=== PATIENT | female | born 1945 | race Caucasian/White ===

== ENCOUNTER 2016-12-15 19:23 | Observation (INO) | payer MEDICARE ==
[2016-12-15] MEDS ORDERED: ASPIRIN TABLET 325 MG TAB PO ONE ×2 (19:49→20:26)
--- NOTE | 2016-12-15 20:45 | RAD ---
EXAM DESCRIPTION: Chest,1 View CLINICAL HISTORY: 71 years, Female, atypical chest pain COMPARISON: Chest x-ray dated 12/02/2014. FINDINGS: A single frontal chest radiograph was for four. There has been a previous CABG with two ostial rings and median sternotomy wire closure, stable. The lungs are hyperinflated with surgical clips in the RIGHT upper lobe and splaying of the regional pulmonary structures in both upper lobes The lungs are well expanded and clear. The costophrenic sulci are sharp. The aortic arch is calcified. The cardiac silhouette, hilar regions, trachea, soft tissues and bony structures are unremarkable aside from osteopenia. In the interval since the prior study, there has been no significant change. IMPRESSION: No acute cardiopulmonary disease. Emphysema. Electronically signed by: Rukhsana Riddle MD 12/15/2016 8:44 PM CDT
--- NOTE | 2016-12-15 21:49 | ED.PDOC ---
History of Present Illness - General Chief Complaint: Chest Pain/ND Stated Complaint: chest pain Time Seen by Provider: 12/15/16 20:26 Source: patient, RN notes reviewed, Vital Signs reviewed Exam Limitations: no limitations - History of Present Illness Initial Comments: Patient is a 71 y/o female with a significant cardiac history who has had chest pain (lower sub-sternal) for the past 3 days off and on. It really started bothering her worse today at around 1500. It is a sharp pain, about a 6-8/10 before she came in. In the ED, she does not have any pain. She has shortness of breath because she has COPD, but it has not been any worse. She denies any nausea or diaphoresis. She did have some dizziness. Patient's room worker is Flavio Trotter M.D. Timing/Duration: getting worse, other - 3 days Severity: moderate, severe Location: substernal Activities at Onset: none Prior Chest Pain/Cardiac Workup: cardiac cath, heart attack Improving Factors: nothing Worsening Factors: nothing Nitro Today/Relief: no nitro taken today Aspirin Treatment Today: provided by ED Associated Symptoms: headaches Allergies/Adverse Reactions: Allergies Sulfa Antibiotics Allergy (Verified 12/15/16 19:47) Home Medications: Ambulatory Orders Acid Reflux Med 12/15/16 Aspirin 12/15/16 Benadryl 12/15/16 Blood Pressure Med 12/15/16 Unisom 12/15/16 Review of Systems - Review of Systems Constitutional: States: no symptoms reported. Denies: chills, fever EENTM: States: no symptoms reported Respiratory: States: cough, short of breath Cardiology: States: chest pain Gastrointestinal/Abdominal: States: no symptoms reported Genitourinary: States: no symptoms reported Musculoskeletal: States: no symptoms reported Skin: States: no symptoms reported Neurological: States: no symptoms reported Endocrine: States: no symptoms reported Hematologic/Lymphatic: States: no symptoms reported All other Systems: Reviewed and Negative Past Medical History (General) - Patient Medical History Hx of COPD: Yes Hx Cardiac Disorders: Yes Hx Hypertension: Yes Surgical History: appendectomy, coronary bypass surgery, Hysterectomy - Vaccination History Hx Influenza Vaccination: Yes Hx Pneumococcal Vaccination: Yes - Social History Hx Alcohol Use: Yes - Female History Patient is a Female of Child Bearing Age (10 -59 yrs old): No Family Medical History - Family History Father Hx Cardiac Disease: Yes Physical Exam - Physical Exam General Appearance: Alert, Comfortable, No apparent distress Eyes, Ears, Nose, Throat Exam: normal ENT inspection Neck: supple Respiratory: lungs clear, normal breath sounds, no respiratory distress, no accessory muscle use Cardiovascular/Chest: regular rate, rhythm, no edema, no gallop, no JVD, no murmur Peripheral Pulses: radial,right: 2+, radial,left: 2+, dorsalis pedis,right: 1+, dorsalis pedis,left: 1+ Gastrointestinal/Abdominal: normal bowel sounds, non tender, soft, no organomegaly, no pulsatile mass Extremity: non-tender, normal inspection, no pedal edema, no calf tenderness Neurologic: alert, normal mood/affect, oriented x 3 Skin Exam: normal color, warm/dry Progress - Progress Progress: 12/15/16 21:53 Patient's initial set of cardiac enzymes is normal. She continues to be pain- free. She would like to go home, however I discussed the need to do three sets of cardiac enzymes 3 hours apart and that one normal lab does not mean she does not have any cardiac injury. I told her she could leave AMA, however the risks included worsening of any possible cardiac injury, including disability and . Patient decided to stay for obs so that we can completely rule out an ND. - Results/Orders Results/Orders: 12/15/16 12/15/16 19:38 20:37 Temperature 96.8 F L Pulse Rate [ 61 54 L Apical] Respiratory 16 18 Rate Blood Pressure 156/72 145/72 [Right Arm] O2 Sat by Pulse 97 Oximetry 12/15/16 20:00 EKG STAT 12/15/16 20:26 Chest,1 View [RAD] Stat Laboratory Results WBC 7.0 K/mm3 (4.8-10.8) 12/15/16 20:09 RBC 4.19 M/mm3 (4.20-5.40) L 12/15/16 20:09 Hgb 11.6 gm/dL (12.0-16.0) L 12/15/16 20:09 Hct 36.3 % (36.0-47.0) 12/15/16 20:09 MCV 86.6 fl (81.0-99.0) 12/15/16 20:09 MCH 27.6 pg (27.0-31.0) 12/15/16 20:09 MCHC 32.0 g/dL (33.0-37.0) L 12/15/16 20:09 RDW 15.3 % (11.5-14.5) H 12/15/16 20:09 Plt Count 242 K/mm3 (130-400) 12/15/16 20:09 MPV 8.1 fl (7.40-10.4) 12/15/16 20:09 Absolute Neuts (auto) 4.00 K/uL (1.8-6.8) 12/15/16 20:09 Absolute Lymphs (auto) 2.10 K/uL (1.0-3.4) 12/15/16 20:09 Absolute Monos (auto) 0.60 K/uL (0.2-0.8) 12/15/16 20: Absolute Eos (auto) 0.20 K/uL (0.0-0.4) 12/15/16 20:09 Absolute Basos (auto) 0.10 K/uL (0.0-0.1) 12/15/16 20:09 Neutrophils % 58.0 % (42.0-78.0) 12/15/16 20: Lymphocytes % 30.3 % (20.0-50.0) 12/15/16 20: Monocytes % 8.1 % (2.0-9.0) 12/15/16 20: Eosinophils % 2.5 % (1.0-5.0) 12/15/16 20: Basophils % 1.1 % (0.0-2.0) 12/15/16 20:09 PT 11.7 SECONDS (9.4-12.5) 12/15/16 20:09 INR 1.040 12/15/16 20:09 PTT (SP) 32.6 SECONDS (25.1-36.5) 12/15/16 20:09 D-Dimer, Quantitative < 230 ng/mL (0-230) 12/15/16 20:09 Sodium 138 mmol/L (135-145) 12/15/16 20:09 Potassium 4.2 mmol/L (3.6-5.0) 12/15/16 20:09 Chloride 104 mmol/L (101-111) 12/15/16 20:09 Carbon Dioxide 28 mmol/L (21-31) 12/15/16 20:09 Anion Gap 10.2 (12-18) L 12/15/16 20:09 BUN 11 mg/dL (7-18) 12/15/16 20:09 Creatinine 1.15 mg/dL (0.6-1.3) 12/15/16 20:09 BUN/Creatinine Ratio 9.6 (10-20) L 12/15/16 20:09 Random Glucose 92 mg/dL (70-105) 12/15/16 20:09 Serum Osmolality 274.7 mOsm/L (275-295) L 12/15/16 20:09 Calcium 8.7 mg/dL (8.4-10.2) 12/15/16 20:09 Magnesium 1.9 mg/dL (1.8-2.5) 12/15/16 20:09 Total Bilirubin 0.5 mg/dL (0.2-1.0) 12/15/16 20:09 Direct Bilirubin 0.1 mg/dL (0-0.2) 12/15/16 20:09 Indirect Bilirubin 0.4 mg/dL (0.2-0.8) 12/15/16 20:09 AST 17 IU/L (10-42) 12/15/16 20:09 ALT 12 IU/L (10-60) 12/15/16 20:09 Alkaline Phosphatase 105 IU/L (42-121) 12/15/16 20:09 Creatine Kinase 71 IU/L (26-140) 12/15/16 20:09 CK-MB (CK-2) 1.1 ng/mL (0.0-4.4) 12/15/16 20:09 CK-MB (CK-2) % Not Reportable 12/15/16 20:09 Troponin I < 0.02 ng/mL (0.01-0.05) 12/15/16 20:09 B-Natriuretic Peptide 126.0 pg/ml (0-100) H 12/15/16 20:09 Serum Total Protein 7.2 gm/dL (6.4-8.2) 12/15/16 20:09 Albumin 4.0 g/dl (3.2-5.5) 12/15/16 20:09 - EKG/XRAY/CT EKG: Sinus - 62 bpm, nonspecific ST T wave Chg Comments: NML axis, NML intervals, No comp. available, Abn EKG XRAY: chest - No acute process Departure - Departure Clinical Impression: Hypertension, benign Chest pain Qualifiers: Chest pain type: unspecified Qualified Code(s): R07.9 - Chest pain, unspecified Coronary artery disease Qualifiers: Coronary Disease-Associated Artery/Lesion type: unspecified vessel or lesion type [place] vs. transplanted heart: teller heart Associated angina: angina presence unspecified Qualified Code(s): I25.10 - Atherosclerotic heart disease of teller coronary artery without angina pectoris Time of Disposition: 21:59 Home Medications: Ambulatory Orders Acid Reflux Med 12/15/16 Aspirin 12/15/16 Benadryl 12/15/16 Blood Pressure Med 12/15/16 Unisom 12/15/16 Decision To Admit - Decistion To Admit Decision to Admit Reason: Medical Nature Decision to Admit Date: 12/15/16 Decision to Admit Time: 21:45
--- NOTE | 2016-12-15 22:32 | RAD ---
EXAM DESCRIPTION: Chest,1 View CLINICAL HISTORY: chest pain COMPARISON: None FINDINGS: Frontal view of the chest and supine and upright images of the abdomen were submitted. Cardiac silhouette is within normal limits. There is no focal parenchymal or pleural disease. There is no free air in the abdomen. There is no evidence of bowel obstruction. IMPRESSION: No acute abnormalities. Electronically signed by: Ulysses Aguero MD 12/15/2016 10:32 PM CDT
[2016-12-15] MEDS ORDERED: IV SET AND CAP CHANGE INJ INJ SCH (23:45)
[2016-12-15] MEDS ORDERED: MORPHINE SULFATE INJ 10 MG/ML VIAL IV PRN (23:49)
[2016-12-15] MEDS ORDERED: ACETAMINOPHEN 325 MG TAB PO PRN (23:49)
[2016-12-15] MEDS ORDERED: NITROGLYCERIN 0.4 MG 25 EA TAB SL PRN (23:49)
[2016-12-15] MEDS ORDERED: SODIUM CHLORIDE 0.9% (FLUSH) 10 ML SYG IV PRN (23:49)
[2016-12-16] MEDS ORDERED: NITROGLYCERIN 0.2 MG/HR PATCH TD SCH ×2 (01:00→21:00)
--- NOTE | 2016-12-16 01:01 | PCM.CORE ---
Physician DVT/VTE - Nurse DVT Assessment & Total Each Risk Factor Represents 3 Points: Medical PT with Hx of [place], CHF, Severe infection/sepsis Each Risk Factor Represents 2 Points: Age 60-74 Each Risk Factor Represents 1 Point: Hx of smoking past year Each Risk Factor is 1 Point: Serious Lung disease (pnemonia <1month, COPD, emphysema,etc) DVT Assessment Score: 7 - 5 or more Very High Risk Treatments: Early Ambulation *, Sequential Compression Device Pharmacological: Enoxaparin 40mg SQ Daily
[2016-12-16] MEDS ORDERED: ENOXAPARIN SODIUM 40 MG/0.4 ML SYG SUBCU SCH ×2 (01:30→21:00)
[2016-12-16] MEDS ORDERED: SODIUM CHLORIDE 0.9% (FLUSH) 10 ML SYG IV SCH (09:00)
[2016-12-16 10:48] VITALS: BP 131/75; TEMP 97.4; O2SAT 97
[2016-12-16] MEDS ORDERED: TIOTROPIUM IN SCH (12:00)
[2016-12-16] MEDS ORDERED: NON-FORMULARY MEDICATION 1 EA MIS (Budesonide-Formoterol Fumarate [Symbicort 160-4.5 Mcg/A IN SCH (12:00)
[2016-12-16] MEDS ORDERED: ATENOLOL 25 MG TAB PO SCH (12:00)
[2016-12-16] MEDS ORDERED: ASPIRIN EC 81 MG TAB PO SCH (12:00)
[2016-12-16] MEDS ORDERED: PRASUGREL 10 MG PO SCH (12:00)
[2016-12-16] MEDS ORDERED: REMOVE OLD PATCH TOP ONE (13:45)
--- NOTE | 2016-12-16 18:09 | SSS ---
SUPERVISING PHYSICIAN: Nate Denny M.D. CHIEF COMPLAINT: Chest pain. HISTORY OF PRESENT ILLNESS: Ms. Nunez is a 71 year-old female patient that presented to the Emergency Department on 12/15/16 with a significant cardiac history who had started having chest pains that she describes as low substernal for the past 3 to 4 days on and off. The pain had started really bothering her the day before around 3:00 and she noted it to be sharp, and noted it to be about 6 to 8/10 on a pain scale. In the Emergency Department, she presented without any pain. She does have some shortness of breath secondary to chronic obstructive pulmonary disease but was not having any exacerbation. She denied any nausea, vomiting or diaphoresis. The patient does see Dr. Flavio Trotter for cardiology. Initial laboratory studies showed troponin to be less than 0.02, 12-lead EKG showed normal sinus rhythm without any significant ST changes. Initially the patient requested to be discharged, however after a lengthy discussion with the E. R. physician, the patient decided that it would be in her best interest for her to stay overnight at least to have a repeat of her cardiac enzymes to ensure that there was no acute cardiac injury occurring. Therefore the patient was placed in Observation. She was in stable condition at time of admission. PAST MEDICAL HISTORY: 1. Gastroesophageal reflux disease. 2. Previous myocardial infarction in 1997 with 2 stents placed in [place]. 3. Cardiac catheterization in February 2016 with stents placed times [address] Trotter. 4. Chronic obstructive pulmonary disease. PAST SURGICAL HISTORY: 1. Cholecystectomy. 2. Hysterectomy. 3. Total appendectomy. 4. Neck surgery. 5. Coronary artery bypass graft times 3 vessels in February 2011. HOME MEDICATIONS: 1. Albuterol inhaler 1 puff q.i.d. as needed. 2. Lipitor 40 mg daily at bedtime. 3. Tenormin 25 mg daily. 4. Aspirin enteric coated 81 mg daily. 5. Benadryl 50 mg p.r.n. 6. Spiriva Handihaler 2 puffs daily. 7. Effient 10 mg daily. 8. Symbicort 160-4.5 mcg per actuation 1 puff twice daily. 9. Nitroglycerin tablets subcue 0.4 mg sublingual every 5 minutes as needed. FAMILY HISTORY: Father had a history of cardiac disease. Otherwise unremarkable. 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 She is . Lives in [place]. Has a history of smoking tobacco 2 to 3 packs per day since age 14, quit 17 months previously in 2015. Alcohol, she admits to drinking maybe 1 or 2 drinks per year. She denies any illicit drug use. REVIEW OF SYSTEMS: CONSTITUTIONAL: Denies any chills, fever, general malaise. HEENT: Denies any headaches, vision changes, dizziness. RESPIRATORY: Notes that she has a nonproductive cough that is fairly chronic and has some shortness of breath on a general basis, but nothing worsening. CARDIOVASCULAR: As noted in the History of Present Illness, chest pains for the last 3 to 4 days. GASTROINTESTINAL: Denies any abdominal pains, nausea or vomiting, or diarrhea. GENITOURINARY: Denies any dysuria, hematuria or other urinary symptoms. NEUROLOGIC: Denies any dizziness, syncopal episodes or other neurological deficits. PHYSICAL EXAMINATION: VITAL SIGNS: On admission to the Emergency Department showed temperature 96.8, pulse 61, blood pressure 166/72, respirations 16, O2 sat 97%. At time of discharge, blood pressure was 131/75, heart rate 67, respirations 20. She was satting 97% on room air and afebrile at 97.4. GENERAL: The patient appears to be well hydrated, well nourished in no acute distress. HEENT: Tympanic membranes are clear bilaterally. Oropharynx is pink and moist without any lesions. NECK: Supple, non-tender, full range of motion. No jugular venous distention. CHEST: Lungs are clear to auscultation bilaterally without any rhonchi, wheezing or rales. CARDIOVASCULAR: Regular rate and rhythm without any appreciable murmurs, gallops, or rubs. ABDOMEN: Soft, non-tender. Positive bowel sounds. EXTREMITIES: No clubbing, cyanosis or edema. NEUROLOGIC: She is alert and oriented times three. LABORATORY: Initial white count on admission was 7.0, at discharge was 6.1, hemoglobin was stable at 11.3, hematocrit 34.7, platelet count 213,000. Differential was within normal limits. Coagulation studies showed normal PT and PTT, and D-dimer that was less than 230. Chemistries showed normal electrolytes on admission, at discharge potassium was 4.0, BUN 10, creatinine 1.12, calcium 8.7. Liver functions all showed to be within normal limits. She had 3 sets of cardiac enzymes all within normal limits with final cardiac enzymes showing CPK of 64 with troponin times 3 of less than 0.02. BNP was slightly elevated at 126. Lipid panel showed triglycerides of 169 with cholesterol 161, cholesterol LDL was 86 and HDL cholesterol was 42. RADIOLOGY: Chest x-ray per radiology interpretation showed no acute abnormalities. HOSPITAL COURSE: The patient was seen in the E. R. as noted above and had a cardiac workup in the Emergency Room to include cardiac enzymes that showed to be normal with an EKG that showed normal sinus rhythm without any ST changes. She was pain free initially upon admission to the Emergency Department and given her past history, it was discussed with the patient that she should be at least observed overnight to further rule out any acute cardiac injury with repeat cardiac enzymes and close monitoring on telemetry. The patient was placed into Observation on the Medical/Surgical floor in stable condition. She had no recurrence of her chest pains, had no other complaints. EKG remained unchanged with normal sinus rhythm at discharge with no ST or T wave changes. She showed no arrhythmias on telemetry through the night. Had no nausea or vomiting, was afebrile. Cardiac enzymes times 3 were all within normal limits. The patient was also started on a Nitro patch topically 0.2 mcg per hour which was continued through discharge. On the morning of discharge, she was stable and felt well enough to be discharged to continue with followup with her fixed route bus operator and primary care physician in the outpatient setting. ASSESSMENT: 1. Chest pain, unknown etiology with cardiac enzymes being within normal limits through observation period as well as no significant changes on EKGs with the patient having a significant history of cardiac disease with a previous myocardial infarction in 1997 and a coronary artery bypass graft in [address] Trotter with last echocardiogram documented per review of medical records on 2013 with an estimated ejection fraction of 55%. 2. History of gastroesophageal reflux disease. 3. Significant history of cardiovascular disease with previous myocardial infarction in 1997 with multiple stent placements along with coronary artery bypass graft three vessel in February [address] Trotter. 4. History of chronic obstructive pulmonary disease without any exacerbation in a former smoker. PLAN: The patient was discharged in stable condition to have close clinical followup with Dr. Trotter, her fixed route bus operator, and her primary care physician, Dr. Rose. She was instructed to call on Sunday after discharge to establish an appointment for followup with Dr. Trotter as well as Dr. Rose. She was given a new prescription to include Nitro patch 0.2 mcg per hour to wear during the day and to take off at night until she can be seen in followup. She was to do no strenuous exercising but increase activity as tolerated until she can be seen in followup. Diet was to include a low fat, low cholesterol diet. She was instructed to resume her home medication as previous to admission. She was discharged in stable condition with new prescriptions to include: 1. Nitroglycerin patch 0.2 mcg per hour 1 every AM for 12 hours to be removed at night, #7. 2. Sublingual tablets 0.4 mg 1 every 5 minutes as needed for chest pains, 1 bottle. Diet at discharge was low fat, low cholesterol. Activity was to increase as tolerated but no strenuous exercise. Condition at discharge was stable. #[id number] [facility]
[2016-12-16] MEDS ORDERED: BUDESONIDE/FORMOTEROL 160/4.5 60 PUFF/6 GM INH INH SCH (20:00)
[2016-12-16] MEDS ORDERED: ATORVASTATIN 20 MG TAB PO SCH (21:00)
[2016-12-17] MEDS ORDERED: TIOTROPIUM INHALER INH SCH (08:00)
[2016-12-17] MEDS ORDERED: REMOVE OLD PATCH TOP SCH (09:00)
[2016-12-17] MEDS ORDERED: PRASUGREL 10 MG TAB PO SCH (09:00)
== END 2016-12-16 13:30 | disposition home or self-care (01) ==
LOC: ER 19:23 → MS 23:08
PROVIDERS: ADMIT Nurse Practitioner Family; ATTEND Nurse Practitioner Family
DX: R07.2 Precordial pain (principal); I25.2 Old myocardial infarction; I25.10 Atherosclerotic heart disease of native coronary artery without angina pectoris; K21.9 Gastro-esophageal reflux disease without esophagitis; J44.9 Chronic obstructive pulmonary disease, unspecified; R06.02 Shortness of breath; Z95.1 Presence of aortocoronary bypass graft; Z95.5 Presence of coronary angioplasty implant and graft; Z79.82 Long term (current) use of aspirin; Z79.899 Other long term (current) drug therapy; Z87.891 Personal history of nicotine dependence; Z79.51 Long term (current) use of inhaled steroids; Z90.49 Acquired absence of other specified parts of digestive tract; Z90.710 Acquired absence of both cervix and uterus; Z82.49 Family history of ischemic heart disease and other diseases of the circulatory system
CPT/HCPCS: 36415 ×4; 71010 ×2; 80048; 80053; 80061; 80076; 82550 ×3; 82553 ×3; 83880; 84484 ×3; 85025 ×2; 85379; 85610; 85730; 93005 ×2; 94760 ×2; 96372; 99284; G0378; J1650

== ENCOUNTER → 2016-12-29 | Outpatient (CLI) | payer MEDICARE | END | disposition home or self-care (01) | LOC: GMAM 12:42 | PROVIDERS: ATTEND Family Medicine | DX: E55.9 Vitamin D deficiency, unspecified (principal) ==

== ENCOUNTER → 2017-12-13 | Outpatient (CLI) | payer OTHER | LOC: GMAM 17:24 | PROVIDERS: ATTEND Family Medicine | DX: J30.1 Allergic rhinitis due to pollen (principal); R25.1 Tremor, unspecified; R73.9 Hyperglycemia, unspecified; R53.83 Other fatigue; E53.8 Deficiency of other specified B group vitamins; I10 Essential (primary) hypertension ==

== ENCOUNTER → 2018-05-28 | Outpatient (CLI) | payer OTHER ==
--- NOTE | 2018-05-28 11:41 | RAD ---
EXAM DESCRIPTION: Chest,2 Views CLINICAL HISTORY: COPD COMPARISON: Previous study December 15, 2016 TECHNIQUE: PA/lateral FINDINGS: Sternotomy wires are present. Heart size is normal with normal pulmonary vascularity. No pleural effusion or pneumothorax. Scattered granulomas are seen. Linear scarring in the right apex. Prominent lung markings are similar to previous study. Lungs are hyperexpanded with no consolidating infiltrate. Lateral view shows intact sternum and T-spine. IMPRESSION: No acute-appearing consolidation. Electronically signed by: Rg Ryder MD 05/28/2018 11:39 AM CDT
== END ==
LOC: RAD 11:02
PROVIDERS: ATTEND Family Medicine
DX: J44.9 Chronic obstructive pulmonary disease, unspecified (principal)

== ENCOUNTER → 2018-09-20 | Outpatient (CLI) | payer OTHER | LOC: GMAM 10:41 | PROVIDERS: ATTEND Family Medicine | DX: E55.9 Vitamin D deficiency, unspecified (principal) ==

== ENCOUNTER → 2018-10-08 | Outpatient (CLI) | payer OTHER ==
--- NOTE | 2018-10-08 12:32 | CT ---
EXAM DESCRIPTION: Lung Screen Low Dose CLINICAL HISTORY: 73 years Female, HISTORY OF TOBACCO USE COMPARISON: Chest radiograph 05/28/2018. TECHNIQUE: CT images through the chest without IV contrast. Multiplanar reformations were provided. This exam was performed according to our departmental dose-optimization program, which includes automated exposure control, adjustment of the mA and/or kV according to patient size and/or use of iterative reconstruction technique. CT CHEST FINDINGS: Heart and mediastinum: Heart is normal size. No pericardial effusion. There is severe aortic and coronary atherosclerosis. Small hiatal hernia. No mediastinal lymphadenopathy. Evaluation for hilar lymphadenopathy limited without intravenous contrast. Thyroid Gland: Normal. Lungs: Bilateral emphysema. Subcentimeter calcified granuloma in the lateral left upper lobe on image 47. Airways: No filling defects or bronchiectasis. Pleura: No effusion or pneumothorax. Subphrenic Structures: Gallbladder surgically absent. Common bile duct measures up to 9 mm which is likely secondary to reservoir effect following cholecystectomy. A right renal cyst measures up to 3.9 cm. Musculoskeletal and Soft Tissues: Thoracic spondylosis without acute compression deformity. Media sternotomy wires are intact. IMPRESSION: 1. No acute abnormality of the chest. 2. Emphysema without suspicious pulmonary nodule. Category 1 - No nodule or definitely benign nodules (probability of malignancy less than 1%). Follow-up: Continue annual screening with Low Dose Chest CT in 12 months. 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
== END ==
LOC: CT 11:00
PROVIDERS: ATTEND Family Medicine
DX: Z87.891 Personal history of nicotine dependence (principal); J43.9 Emphysema, unspecified

== ENCOUNTER → 2018-11-20 | Outpatient (CLI) | payer OTHER ==
--- NOTE | 2018-11-20 18:42 | MRI ---
MRI left shoulder without contrast INDICATION: Shoulder pain TECHNIQUE: Noncontrast MR imaging left shoulder standard protocol FINDINGS: Minimal AC joint osteoarthrosis There is edema in the axillary recess along the capsule indicating mild adhesive capsulitis. Minimal subacromial and subdeltoid bursal edema. No high-grade partial or full-thickness rotator cuff tear or retraction. Minimal grade 1 marbling throughout the rotator cuff muscle bellies. Mild type II acromial morphology. No advanced muscle atrophy or denervation edema There is tendinopathy distal supraspinatus with interstitial fissuring anteriorly coronal series 501 image 7 indicating low-grade chronic partial tear. IMPRESSION: Tendinopathy and low-grade chronic partial tear supraspinatus tendon Adhesive capsulitis Mild labral degeneration Mild AC joint osteoarthrosis Electronically signed by: Ambrosio Lawson MD 11/20/2018 6:39 PM CDT
--- NOTE | 2018-11-21 08:12 | MRI ---
EXAM DESCRIPTION: Cervical Spine CLINICAL HISTORY: 73 years Female, CERVICAL RADICULOPATHY COMPARISON: None. TECHNIQUE: Multisequence, multiplanar images of the cervical spine were obtained without intravenous contrast. FINDINGS: Vertebrae: No acute fracture. No acute compression deformity. Acute moderate type I endplate change at C6-C7. Mild reversal of normal cervical lordosis centered at C6. AP lungs maintained. Spinal cord: The cervical cord is normal in signal and contour. Cerebellar tonsils are normal in position. Discs, facets, spinal canal, and neural foramina: Disc desiccation throughout the cervical spine. Severe C6-C7 disc space narrowing. C2-C3: No disc osteophyte complex. Mild bilateral uncovertebral spurring. Mild spinal canal stenosis. Mild bilateral neural foraminal stenosis. C3-C4: Small disc osteophyte complex with moderate right greater than left uncovertebral and moderate bilateral facet arthropathy. Moderate spinal canal stenosis with AP narrowing to 6 mm. Severe right greater than left neural foraminal stenosis. C4-C5: No significant disc osteophyte complex. Moderate bilateral uncovertebral and facet arthropathy. Moderate spinal canal stenosis with flattening of the ventral spinal cord. Moderate right and severe left neural foraminal stenosis. C5-C6: Small disc osteophyte complex with severe bilateral uncovertebral spurring. Moderate bilateral facet arthropathy. Moderate spinal canal stenosis with flattening the ventral spinal cord. Moderate right and severe left neural foraminal stenosis. C6-C7: Small disc osteophyte complex with severe uncovertebral spurring. Mild/moderate facet arthropathy. Mild spinal canal stenosis. Moderate bilateral neural foraminal stenosis. C7-T1: Small disc osteophyte complex with severe right and moderate left uncovertebral spurring. Mild facet arthropathy. Mild spinal canal stenosis. Neuroforamina are patent. Other findings: Paravertebral soft tissues unremarkable. IMPRESSION: 1. No acute fracture acute compression deformity. 2. Mild cervical kyphosis centered at C6-C7 with associated acute Modic type I degenerative endplate change at C6-C7. 3. Cervical spondylosis with up to moderate spinal canal stenosis and flattening of the ventral spinal cord as above. 4. Multilevel neural foraminal compromise, greatest and severe at bilateral C4, left C5, left C6. Electronically signed by: Yang Golden MD 11/21/2018 8:09 AM CDT
== END ==
LOC: MRI 10:54
PROVIDERS: ATTEND Family Medicine
DX: M47.22 Other spondylosis with radiculopathy, cervical region (principal); S46.012A Strain of muscle(s) and tendon(s) of the rotator cuff of left shoulder, initial encounter; M75.02 Adhesive capsulitis of left shoulder; M19.012 Primary osteoarthritis, left shoulder

== ENCOUNTER 2019-03-06 19:00 | Emergency (ER) | payer OTHER ==
[2019-03-06] MEDS ORDERED: ASPIRIN (CHEWABLE) 81 MG TAB ONE (19:14)
[2019-03-06] MEDS ORDERED: NITROGLYCERIN 0.4 MG 25 EA TAB SL ONE ×2 (19:14→19:19)
[2019-03-06] MEDS ORDERED: ALUM & MAG HYDROX-SIMETHICONE 30 ML, LIDOCAINE VISCOUS 2% 15 ML PO ONE ×2 (19:19)
[2019-03-06] MEDS ORDERED: ASPIRIN (CHEWABLE) 81 MG TAB PO ONE (19:19)
[2019-03-06] MEDS ORDERED: SODIUM CHLORIDE 0.9% (FLUSH) 10 ML SYG IV PRN (19:19)
[2019-03-06] MEDS ORDERED: LIDOCAINE HCL 2% (MOUTH-THROAT) 15 ML UD ONE (19:20)
[2019-03-06] MEDS ORDERED: ALUM & MAG HYDROX-SIMETHICONE 30 ML UD ONE (19:20)
--- NOTE | 2019-03-06 19:42 | RAD ---
EXAM: XR Chest, 1 View CLINICAL HISTORY: 73 years old and is Female; chest pain, dyspnea TECHNIQUE: Frontal view of the chest. COMPARISON: 05/28/2018 FINDINGS: Limitations: None. Lungs: Stable bullous emphysematous change. No consolidation. Pleural space: Unremarkable. No pneumothorax. Heart: Coronary bypass changes present. Mediastinum: Unremarkable. Bones/joints: Unremarkable. IMPRESSION: Chronic changes as above. No acute disease. Electronically signed by: Emily Benitez MD 03/06/2019 7:40 PM CDT
[2019-03-06] MEDS ORDERED: NITROGLYCERIN/D5W IV 250 ML IVS ONE (20:30)
--- NOTE | 2019-03-06 20:35 | ED.PDOC ---
History of Present Illness - General Chief Complaint: Chest Pain/NV Stated Complaint: CP x's 1 week Time Seen by Provider: 03/06/19 19:10 Source: patient Exam Limitations: no limitations - History of Present Illness Initial Comments: Sara Nunez73 y/o female stated that she had on and off stabbing subcostal pain for the last one week and and takes her blood pressure and noted it to be high so takes an extra dose of her high blood pressure medication w/c relieved her chest pain symptoms.But today had 2 episodes with radiation to her right jaw so came to ER.Had history of CABG and cardiac stent -2010;scheduled for ETT by Dr. Trotter her office support this coming 17 March 2019. Timing/Duration: 1 week Severity: moderate Location: substernal Activities at Onset: none Prior Chest Pain/Cardiac Workup: cardiac cath, heart attack, other - stent/CABG Improving Factors: nothing Worsening Factors: nothing Nitro Today/Relief: 0.4 mg x 1 Aspirin Treatment Today: 81 mg x 4 Associated Symptoms: other - see hpi Allergies/Adverse Reactions: Allergies Sulfa Antibiotics Allergy (Verified 03/06/19 19:35) Home Medications: Ambulatory Orders Albuterol Inhaler [Ventolin Hfa Inhaler] 1 puff INH QID PRN 12/16/16 Aspirin [Aspirin EC] 81 mg PO DAILY 12/16/16 Atenolol [Tenormin] 25 mg PO DAILY 12/16/16 Atorvastatin Calcium [Lipitor] 40 mg PO BEDTIME 12/16/16 Budesonide-Formoterol Fumarate [Symbicort 160-4.5 Mcg/Act] 1 puff IN BID 12/16/16 Nitroglycerin 0.4 mg Tab [Nitrostat] 1 ea SL Q5MIN PRN #1 bottle 12/16/16 Nitroglycerin Patch 0.2 mg/Hr [Nitro-Dur PATCH 0.2 mg/hour] 1 ea TD QAM #7 12/16/16 Prasugrel [Effient] 10 mg PO DAILY 12/16/16 Tiotropium [place] Monohydrate [Spiriva Handihaler] 2 puff IN DAILY 12/16/16 diphenhydrAMINE HCL [Benadryl] 50 mg PO PRN PRN MDD 50 12/16/16 Review of Systems - Review of Systems Constitutional: States: no symptoms reported EENTM: States: no symptoms reported Respiratory: States: no symptoms reported Cardiology: States: see HPI Gastrointestinal/Abdominal: States: no symptoms reported Genitourinary: States: no symptoms reported Musculoskeletal: States: no symptoms reported All other Systems: Reviewed and Negative, No Change from Baseline Past Medical History (General) - Patient Medical History Hx Seizures: No Hx Stroke: No Hx Dementia: No Hx Asthma: No Hx of COPD: Yes Hx Cardiac Disorders: Yes - NV x's 2, stents x's 3, CABG Hx Congestive Heart Failure: Yes Hx Pacemaker: No Hx Hypertension: Yes Hx Diabetes: No Hx Gastroesophageal Reflux: Yes Hx Renal Disease: No Hx MRSA: No Surgical History: appendectomy, cholecystectomy, coronary bypass surgery, other - cardiac stent;c-spine - Vaccination History Hx Tetanus, Diphtheria Vaccination: Yes Hx Influenza Vaccination: Yes Hx Pneumococcal Vaccination: Yes - Social History Hx Tobacco Use: No Hx Alcohol Use: No Hx Substance Use: No Hx Physical Abuse: No Hx Emotional Abuse: No Family Medical History - Family History Father Living Status: Hx Family Asthma: No Hx Family Congestive Heart Failure: No Hx Family Hypertension: Yes Hx Family Stroke: No Hx Cardiac Disease: Yes - mom/dad Hx Family Diabetes: No Hx Family Cancer: Yes - mom-Lungs Physical Exam - Physical Exam General Appearance: Alert, Comfortable, No apparent distress Eyes, Ears, Nose, Throat Exam: normal ENT inspection, pharynx normal Neck: full range of motion, supple, normal inspection Respiratory: chest non-tender, lungs clear, normal breath sounds, no respiratory distress Cardiovascular/Chest: normal peripheral pulses, regular rate, rhythm, no murmur Peripheral Pulses: radial,right: 2+, radial,left: 2+ Gastrointestinal/Abdominal: non tender, soft, no organomegaly Neurologic: alert, oriented x 3 Skin Exam: normal color, warm/dry Progress - Progress Progress: 03/06/19 20:38 Vital Signs - 8 hr 03/06/19 03/06/19 03/06/19 19:15 19:53 20:00 Temperature 99.0 F Pulse Rate [ 85 78 monitor] Respiratory 22 22 Rate Blood Pressure 158/112 121/70 [Right Arm] O2 Sat by Pulse 96 95 96 Oximetry - Results/Orders Results/Orders: 03/06/19 19:19 IV Care:Saline Lock per Protoc QSHIFT Telemetry .ONCE Sodium Chloride 0.9% (Flush) [Saline Flush Syringe] 10 ml IV PRN PRN EKG Stat Pulse Ox Stat 03/06/19 21:00 Nitroglycerin/D5w IV 50,000 mcg Premix Bottle 1 bottle IVS PRN Laboratory Results - last 24 hr 03/06/19 03/06/19 19:10 19:10 WBC 9.5 RBC 4.10 L Hgb 12.3 Hct 36.5 MCV 88.9 MCH 29.9 MCHC 33.7 RDW 17.4 H Plt Count 234 MPV 7.4 Absolute Neuts (auto) 6.50 Absolute Lymphs (auto) 2.10 Absolute Monos (auto) 0.80 Absolute Eos (auto) 0.10 Absolute Basos (auto) 0.10 Neutrophils % 68.0 Lymphocytes % 22.4 Monocytes % 8.1 Eosinophils % 1.0 Basophils % 0.5 PT 9.2 INR 0.92 PTT (SP) 22.4 D-Dimer, Quantitative 0.45 Sodium 138 Potassium 4.1 Chloride 102 Carbon Dioxide 24 Anion Gap 16.1 BUN 17 Creatinine 1.26 BUN/Creatinine Ratio 13.5 Random Glucose 102 Serum Osmolality 277.4 Calcium 8.8 Magnesium 2.0 Total Bilirubin 0.6 Direct Bilirubin 0.1 Indirect Bilirubin 0.5 AST 22 ALT 25 Alkaline Phosphatase 57 Creatine Kinase 43 CK-MB (CK-2) 1.7 CK-MB (CK-2) % Not Reportable Troponin I < 0.02 B-Natriuretic Peptide 49.0 Serum Total Protein 6.7 Albumin 3.6 Discuss test result with patient that she needs to go to [facility] for further cardiac evaluation - EKG/XRAY/CT EKG: Sinus, no ST T wave changes Comments: HR-86 XRAY: chest - COPD changes Departure - Departure Clinical Impression: Chest pain Qualifiers: Chest pain type: chest pain due to myocardial ischemia Ischemic chest pain type: unstable angina pectoris Qualified Code(s): I20.0 - Unstable angina Time of Disposition: 21:39 Disposition: Transfer to Hospital Condition: Fair Departure Forms: ED Discharge - Pt. Copy, Patient Portal Self Enrollment Referrals: Jerald Rose MD [Primary Care Provider] - 1-2 Weeks Home Medications: Ambulatory Orders Albuterol Inhaler [Ventolin Hfa Inhaler] 1 puff INH QID PRN 12/16/16 Aspirin [Aspirin EC] 81 mg PO DAILY 12/16/16 Atenolol [Tenormin] 25 mg PO DAILY 12/16/16 Atorvastatin Calcium [Lipitor] 40 mg PO BEDTIME 12/16/16 Budesonide-Formoterol Fumarate [Symbicort 160-4.5 Mcg/Act] 1 puff IN BID 12/16/16 Nitroglycerin 0.4 mg Tab [Nitrostat] 1 ea SL Q5MIN PRN #1 bottle 12/16/16 Nitroglycerin Patch 0.2 mg/Hr [Nitro-Dur PATCH 0.2 mg/hour] 1 ea TD QAM #7 12/16/16 Prasugrel [Effient] 10 mg PO DAILY 12/16/[address] Tiotropium [place] Monohydrate [Spiriva Handihaler] 2 puff IN DAILY 12/16/16 diphenhydrAMINE HCL [Benadryl] 50 mg PO PRN PRN MDD 50 12/16/16 Transfer to Outside Facility - Transfer Information Accepting Provider:: D/W Dr. Mcdaniel-hospitalist Accepting Facility: [facility] Reason for Transfer: required specialist not available - office support
[2019-03-06] MEDS ORDERED: NITROGLYCERIN/D5W IV 50,000 MCG in PREMIX BOTTLE 1 BOTTLE IVS SCH (21:00)
[2019-03-06 21:27] VITALS: O2SAT 95
[2019-03-06] MEDS ORDERED: ENOXAPARIN SODIUM 80 MG/0.8 ML SYG SUBCU ONE (21:37)
[2019-03-06 21:52] VITALS: BP 144/75; TEMP 99.1
== END 2019-03-06 22:04 | disposition short-term general hospital (02) ==
LOC: ER 19:00
DX: I20.0 Unstable angina (principal); J44.9 Chronic obstructive pulmonary disease, unspecified; I25.2 Old myocardial infarction; I50.9 Heart failure, unspecified; I11.0 Hypertensive heart disease with heart failure; K21.9 Gastro-esophageal reflux disease without esophagitis; Z95.5 Presence of coronary angioplasty implant and graft; Z79.899 Other long term (current) drug therapy; Z79.82 Long term (current) use of aspirin; Z88.2 Allergy status to sulfonamides
CPT/HCPCS: 36415; 71045; 80048; 80076; 82550; 82553; 83880; 84484; 85025; 85379; 85610; 85730; 93005; 94760; J1650

== ENCOUNTER → 2019-03-26 | Outpatient (CLI) | payer OTHER ==
--- NOTE | 2019-03-26 18:23 | US ---
EXAM DESCRIPTION: Venous,Lower Extremity LT (accession [id number]), Venous,Lower Extremity RT (accession [id number]): Ultrasound. CLINICAL HISTORY: LOCALIZED EDEMA RULE OUT DVT COMPARISON: None Available. TECHNIQUE: Two -dimensional and doppler sonographic evaluation of the deep venous system of the bilateral lower extremities. FINDINGS: Doppler evaluation shows normal color flow and normal phasicity and augmentation of the bilateral common femoral veins, deep femoral and common femoral junctions, femoral veins, popliteal veins, greater saphenous veins, and peroneal veins, Posterior tibial veins. These veins showed normal occlusion with transducer pressure. Two-dimensional survey showed no echogenic clot within these veins. IMPRESSION: Duplex ultrasound evaluation of the bilateral lower extremity deep venous systems showing no evidence of thrombosis. Electronically signed by: Musa Garcia MD 03/26/2019 6:21 PM CDT
--- NOTE | 2019-03-26 18:23 | US ---
EXAM DESCRIPTION: Venous,Lower Extremity LT (accession [id number]), Venous,Lower Extremity RT (accession [id number]): Ultrasound. CLINICAL HISTORY: LOCALIZED EDEMA RULE OUT DVT COMPARISON: None Available. TECHNIQUE: Two -dimensional and doppler sonographic evaluation of the deep venous system of the bilateral lower extremities. FINDINGS: Doppler evaluation shows normal color flow and normal phasicity and augmentation of the bilateral common femoral veins, deep femoral and common femoral junctions, femoral veins, popliteal veins, greater saphenous veins, and peroneal veins, Posterior tibial veins. These veins showed normal occlusion with transducer pressure. Two-dimensional survey showed no echogenic clot within these veins. IMPRESSION: Duplex ultrasound evaluation of the bilateral lower extremity deep venous systems showing no evidence of thrombosis. Electronically signed by: Musa Garcia MD 03/26/2019 6:21 PM CDT
== END ==
LOC: GMAJS 10:34
PROVIDERS: ATTEND Physician Assistant
DX: R60.0 Localized edema (principal)

== ENCOUNTER → 2019-04-08 | Outpatient (CLI) | payer OTHER | LOC: GMAM 11:17 | PROVIDERS: ATTEND Family Medicine | DX: D51.3 Other dietary vitamin B12 deficiency anemia (principal); E55.9 Vitamin D deficiency, unspecified; I10 Essential (primary) hypertension ==

== ENCOUNTER → 2019-10-16 | Outpatient (CLI) | payer OTHER ==
--- NOTE | 2019-10-20 09:11 | CT ---
Procedure: CT LUNG SCREENING Exam Date: 10/16/2019 Ordering Provider: Thompson Greer Clinical Indication: PERSONAL HISTORY OF TOBACCO USE smoking cessation x6 years. 50-75 pack years. This patient meets eligibility criteria for low-dose CT lung cancer screening. Comparison: September 2018. Technique: Using a multislice scanner, sequential helical axial imaging was obtained in the thorax, 2.5 mm thickness, 2.5 mm separation, from the level of the thoracic inlet through the lung bases without IV contrast. A low dose protocol was utilized for BMI less than 30: BMI: 29. CTDI: 1.76 mGy. 120. kVp. 45 mA. DLP 72 mGy-cm. 2D sagittal and coronal reconstructed images, 6.0 mm thickness, were obtained. This exam was performed according to our departmental dose optimization program which includes use of automated exposure control, adjustment of the mA and/or kV according to patient size and/or use of iterative reconstruction technique. Nodule measurements under 10 mm are given as mean value of 3 axes diameters. FINDINGS: Lungs and large airways: Bilateral blebs and bulla in the parenchyma larger and more numerous in the upper lung rosas. Since the prior study. Branching densities and interstitial densities have developed in the right upper lobe with volume loss. No nodules. 2 large bulla in the posterior apex as well as focal posterior pleural thickening are stable. 5.9 mm partially solid nodule on axial image 10/17. Groundglass nodules, both 12 mm, on images 10/18 and 10/16. Stable calcified granuloma lateral left upper lobe. Posterior bibasilar dependent atelectasis.. Pleura and space: Bilateral pleural thickening more prominent in the apices, otherwise negative. Mediastinum and mckenna: evaluation limited by low dose technique and lack of IV contrast. Small lymph nodes stable. Pericardial surgical hardware. Sternotomy wires. Otherwise unremarkable. Heart and great vessels: Atherosclerotic calcifications in the coronary arteries with possible stents. Calcifications also in several brachiocephalic vessels in the thoracic aorta. Chest wall, lower neck, axillae: Evaluation also limited by same factors as described above. Bilateral macrocalcifications in the breast. Upper abdomen: Evaluation limited by low-dose technique. 4 cm cyst right kidney. Bilateral atherosclerotic calcifications in the kidneys and nonobstructing renal calculi in the urinary tract. No free air or free fluid. Numerous atherosclerotic calcifications. Prior cholecystectomy with stable dilation of the common bile duct.. Osseous structures: Evaluation limited by low dose MIP technique. Decreased bone density. Mild spondylosis in the thoracic spine. IMPRESSION: 1. Volume loss in the right upper lobe since the prior study with atelectasis and or infiltrate. Part solid nodule and groundglass nodules also present.. [facility] Best Practice Recommendations: please see below for Lung RADS category and FOLLOW-UP.* *Lung RADS category CATEGORY 3 - Probably benign (1-2% malignancy probability), short term follow-up suggested. NODULES: Solid nodule(s) 6mm (113.1 mm3) to less than 8mm (268.1 mm3) at baseline, or new 4mm (33.5 mm3) to under 6mm (113.1 mm3) solid nodule. Part solid nodule total diameter >= 6mm (113.1 mm3) with solid component less than 6mm, or new less than 6mm total diameter nodule] OR new <6 mm (113.1 mm3) total diameter. GGN >= 30 mm (>=17992 mm3) on baseline CT or new. FOLLOW-UP: Please return for a Low Dose Chest CT in 6 months for re-evaluation. 2. Patient meets requirements for screening but no record of enrollment in breast screening program in this facility. If not enrolled in a breast screening program in the past 12 months at other facility, recommend enrollment in breast screening program in this facility. Electronically signed by: Musa Garcia MD 10/20/2019 9:10 AM [employer]
== END ==
LOC: CT 13:45
PROVIDERS: ATTEND Family Medicine
DX: Z87.891 Personal history of nicotine dependence (principal)

== ENCOUNTER 2019-11-19 12:06 | Inpatient (IN) | payer MEDICARE, OTHER ==
[2019-11-19] MEDS ORDERED: ACETAMINOPHEN 500 MG TAB PO ONE (12:32)
[2019-11-19] MEDS ORDERED: SODIUM CHLORIDE 0.9% (FLUSH) 10 ML SYG IV PRN ×2 (12:32→17:27)
[2019-11-19] MEDS ORDERED: SODIUM CHLORIDE 0.9% 1000ML 1,000 ML IVS ONE ×2 (12:32→18:29)
--- NOTE | 2019-11-19 13:35 | RAD ---
EXAM DESCRIPTION: Chest,1 View CLINICAL HISTORY: 74 years Female, fever, cough and sob. COMPARISON: Radiograph the chest dated 03/06/2019. TECHNIQUE: AP radiograph of the chest was obtained. FINDINGS: Trachea is midline.The cardiomediastinal silhouette is normal in size. The pulmonary vasculature is within normal limits. Airspace opacities are identified throughout the right lung and left lower lobe, concerning for multifocal pneumonia. IMPRESSION: Airspace opacities are identified throughout the right lung and left lower lobe, concerning for multifocal pneumonia. Electronically signed by: Nayeli Pedro MD 11/19/2019 1:34 PM CDT
[2019-11-19] MEDS ORDERED: IPRATROPIUM/ALBUTEROL 3 ML VIAL NEB ONE (13:47)
[2019-11-19] MEDS ORDERED: ALBUTEROL SULFATE 2.5 MG/3 ML VIAL NEB ONE (13:48)
[2019-11-19] MEDS ORDERED: cefTRIAXone SODIUM 1 GM in SODIUM CHL 0.9% 50ML MIN-BAG+ 50 ML IVPB ONE (13:49)
[2019-11-19] MEDS ORDERED: AZITHROMYCIN IV 500 MG in SODIUM CHLORIDE 0.9% 250ML 250 ML IVPB ONE (13:50)
[2019-11-19] MEDS ORDERED: SODIUM CHL 0.9% 50ML MIN-BAG+ 50 ML IVPB ONE (13:54)
[2019-11-19] MEDS ORDERED: cefTRIAXone SODIUM 1 GM VIAL ONE (13:54)
[2019-11-19] MEDS ORDERED: AZITHROMYCIN IV 500 MG VIAL IVPB ONE (14:00)
[2019-11-19] MEDS ORDERED: SODIUM CHLORIDE 0.9% 250ML 250 ML ONE (14:03)
[2019-11-19] MEDS ORDERED: SODIUM CHLORIDE 0.9% 500ML 500 ML IVS ONE (14:11)
--- NOTE | 2019-11-19 15:29 | ED.PDOC ---
History of Present Illness - General Chief Complaint: Respiratory Problem Stated Complaint: cough,fever,shortness of breath Time Seen by Provider: 11/19/19 12:25 Source: patient, RN notes reviewed, Vital Signs reviewed, EMS notes reviewed, family - Son Exam Limitations: no limitations - History of Present Illness Initial Comments: Patient is a 74-year-old white female who presents from home with complaints of fever, shortness of breath and hypotension. She was brought in by EMS. EMS noted her to be hypoxic on arrival at her home. When they checked, her O2 sat on room air was 84%. Patient does have COPD, but she only uses oxygen at night. In the last day she has had to use oxygen 19/03. EMS placed her on 3 L nasal cannula and brought her O2 saturation to 92%. Patient complains of shortness of breath, fevers and generalized body aches and not feeling well. Patient was also noted by EMS to be hypotensive with a systolic in the 70s. They started IV fluids and on arrival here systolic blood pressure was 92. Patient symptoms started approximately 2 days ago and fever started yesterday. She has worsened over the last 2 days. Timing/Duration: constant, getting worse Severity: severe Improving Factors: nothing Worsening Factors: movement Associated Symptoms: cough, fever/chills, malaise, shortness of breath, weakness Allergies/Adverse Reactions: Allergies Sulfa Antibiotics Allergy (Verified 03/06/19 19:35) Home Medications: Ambulatory Orders Albuterol Inhaler [Ventolin Hfa Inhaler] 1 puff INH QID PRN 12/16/16 Aspirin [Aspirin EC] 81 mg PO DAILY 12/16/16 Atenolol [Tenormin] 25 mg PO BID 12/16/16 Atorvastatin Calcium [Lipitor] 40 mg PO BEDTIME 12/16/16 diphenhydrAMINE HCL [Benadryl] 50 mg PO PRN PRN MDD 50 12/16/16 Cholecalciferol [Vitamin D3] 5,000 unit PO DAILY 11/19/19 Cilostazol 100 mg PO BID 11/19/19 Cyclobenzaprine HCl [Cyclobenzaprine Hydrochlo] 10 mg PO BEDTIME 11/19/19 Furosemide 20 mg PO PRN 11/19/19 Gabapentin 100 mg PO TID 11/19/19 Pantoprazole Sodium 40 mg PO DAILY 11/19/19 Potassium Chloride [K-Tab] 8 meq PO PRN 11/19/19 Tiotropium [place]-Olodaterol [Stiolto Respimat 2.5-2.5 Mcg/Act] 2 aer IN DAILY 11/19/19 Review of Systems - Review of Systems Constitutional: States: see HPI, chills, fever, malaise, weakness EENTM: States: no symptoms reported. Denies: blurred vision, double vision, throat pain, throat swelling Respiratory: States: see HPI, cough, orthopnea, short of breath. Denies: stridor, wheezing Cardiology: States: no symptoms reported. Denies: chest pain, palpitations, syncope Gastrointestinal/Abdominal: States: no symptoms reported. Denies: abdominal pain, diarrhea, nausea, vomiting Genitourinary: States: no symptoms reported Musculoskeletal: States: see HPI, back pain, neck pain Skin: States: no symptoms reported. Denies: change in color, lumps, rash Neurological: States: see HPI, tremors, weakness Endocrine: States: no symptoms reported. Denies: intolerance to cold, intolerance to heat Hematologic/Lymphatic: States: no symptoms reported. Denies: easy bleeding, easy bruising All other Systems: Reviewed and Negative Past Medical History (General) - Patient Medical History Hx Seizures: No Hx Stroke: No Hx Dementia: No Hx Asthma: No Hx of COPD: Yes Hx Cardiac Disorders: Yes - [place] x's 2, stents x's 3, CABG Hx Congestive Heart Failure: Yes Hx Pacemaker: No Hx Hypertension: Yes Hx Diabetes: No Hx Gastroesophageal Reflux: Yes Hx Renal Disease: No Hx MRSA: No Surgical History: coronary bypass surgery - Vaccination History Hx Tetanus, Diphtheria Vaccination: Yes Hx Influenza Vaccination: No Hx Pneumococcal Vaccination: Yes - Social History Hx Tobacco Use: Yes Hx Alcohol Use: No Hx Substance Use: No Hx Physical Abuse: No Hx Emotional Abuse: No Family Medical History - Family History Father Living Status: Hx Family Asthma: No Hx Family Congestive Heart Failure: No Hx Family Hypertension: Yes Hx Family Stroke: No Hx Cardiac Disease: Yes - mom/dad Hx Family Diabetes: No Hx Family Cancer: Yes - mom-Lungs Physical Exam - Physical Exam General Appearance: Alert, Anxious, Obvious distress, Ill Appearing, Well Developed, Well Groomed, Well Nourished Eye Exam: bilateral normal Ears, Nose, Throat: hearing grossly normal, normal pharynx - Except for dry mucous membranes. Neck: non-tender, full range of motion, supple, normal inspection, other - No signs of meningismus Respiratory: chest non-tender, respiratory distress - Moderate, decreased breath sounds - Diffusely throughout, rales - Bilateral bases, rhonchi - Diffusely throughout Cardiovascular/Chest: normal peripheral pulses, no edema, no gallop, no JVD, no murmur, tachycardia - Which responded to IV fluids and she is now no longer tachycardic. Gastrointestinal/Abdominal: normal bowel sounds, non tender, soft, no o rganomegaly Back Exam: normal inspection, no CVA tenderness, no vertebral tenderness Extremity: normal range of motion, non-tender, normal inspection, no pedal edema Neurologic: birth attendant II-XII nml as tested, no motor/sensory deficits, alert, normal mood/affect, oriented x 3 Skin Exam: pallor Lymphatic: no adenopathy Progress - Progress Progress: Differential diagnosis: Pneumonia, coated 19 infection, viral illness, COPD exacerbation among others. 11/19/19 15:45 Patient with multilobar pneumonia on chest x-ray. Initially hypotensive, but that is improved after IV fluids. Patient has a normal lactic acid and therefore this is not consistent with a septic patient though it may be early sepsis and we will repeat the lactic acid. IV antibiotics have been started. I discussed the plan of care with the patient and her son and they voiced understanding and agreement for admission to the hospital for IV antibiotics and further therapy. I discussed this with the hospitalist, Hugh Avalos NP, and he accepts the patient for admission. Chago Singer M.D. #[id number] - Results/Orders Results/Orders: EKG performed 19 November 2019 at 1250 hrs.: Sinus tachycardia at 104 bpm, normal axis deviation, no ST or T wave changes, otherwise normal EKG. No comparison EKG available. 11/19/19 12:32 Sodium Chloride 0.9% (Flush) [Saline Flush Syringe] 10 ml IV PRN PRN EKG Stat Pulse Ox Stat URINALYSIS Stat 11/19/19 12:33 EKG Assessment ONCE Pulse Oximetry Assessment DAILY 11/19/19 12:45 BLOOD CULTURE Stat 11/19/19 13:50 Azithromycin IV [Zithromax IV] 500 mg Sodium Chloride 0.9% 250Ml [NS 250ml] 250 ml IVPB ONCE 11/19/19 14:50 LACTIC ACID Q2H Laboratory Results - last 24 hr 11/19/19 11/19/19 11/19/19 12:07 12:32 12:46 WBC RBC Hgb Hct MCV MCH MCHC RDW Plt Count MPV Absolute Neuts (auto) Absolute Lymphs (auto) Absolute Monos (auto) Absolute Eos (auto) Absolute Basos (auto) Neutrophils % Lymphocytes % Monocytes % Eosinophils % Basophils % PT INR PTT (SP) pCO2 37 pO2 104 HCO3 21.4 ABG pH 7.373 ABG O2 Saturation 98.2 ABG Base Excess -3.4 ABG Deoxyhemoglobin 1.8 Oxyhemoglobin % 95.9 Carboxyhemoglobin % 1.2 Methemoglobin % Sat 1.1 Calc Total Hemoglobin 8.8 L Sodium 138 Potassium 3.7 Chloride 107 Carbon Dioxide 23 Anion Gap 11.7 L BUN 18 Creatinine 1.58 H BUN/Creatinine Ratio 11.4 Random Glucose 107 H Serum Osmolality 278.1 Lactic Acid Calcium 7.9 L Total Bilirubin 0.7 AST 23 ALT 10 Alkaline Phosphatase 56 Creatine Kinase 52 CK-MB (CK-2) 1.1 CK-MB (CK-2) % Not Reportable Troponin I < 0.02 Serum Total Protein 5.6 L Albumin 3.0 L Globulin 2.6 Albumin/Globulin Ratio 1.2 Resp Viral Panel (PCR) Performed @ ref lab 11/19/19 11/19/19 11/19/19 12:46 12:46 13:00 WBC 11.8 H RBC 3.47 L Hgb 9.8 L Hct 29.5 L MCV 85.0 MCH 28.2 MCHC 33.1 RDW 14.8 H Plt Count 224 MPV 7.5 Absolute Neuts (auto) 10.50 H Absolute Lymphs (auto) 0.40 L Absolute Monos (auto) 0.90 H Absolute Eos (auto) 0.00 Absolute Basos (auto) 0.00 Neutrophils % 88.5 H Lymphocytes % 3.7 L Monocytes % 7.4 Eosinophils % 0.1 L Basophils % 0.3 PT 10.4 INR 1.05 PTT (SP) 25.3 pCO2 pO2 HCO3 ABG pH ABG O2 Saturation ABG Base Excess ABG Deoxyhemoglobin Oxyhemoglobin % Carboxyhemoglobin % Methemoglobin % Sat Calc Total Hemoglobin Sodium Potassium Chloride Carbon Dioxide Anion Gap BUN Creatinine BUN/Creatinine Ratio Random Glucose Serum Osmolality Lactic Acid 1.2 Calcium Total Bilirubin AST ALT Alkaline Phosphatase Creatine Kinase CK-MB (CK-2) CK-MB (CK-2) % Troponin I Serum Total Protein Albumin Globulin Albumin/Globulin Ratio Resp Viral Panel (PCR) EXAM DESCRIPTION: Chest,1 View CLINICAL HISTORY: 74 years Female, fever, cough and sob. COMPARISON: Radiograph the chest dated 03/06/2019. TECHNIQUE: AP radiograph of the chest was obtained. FINDINGS: Trachea is midline.The cardiomediastinal silhouette is normal in size. The pulmonary vasculature is within normal limits. Airspace opacities are identified throughout the right lung and left lower lobe, concerning for multifocal pneumonia. IMPRESSION: Airspace opacities are identified throughout the right lung and left lower lobe, concerning for multifocal pneumonia. Electronically signed by: Nayeli Pedro MD 11/19/2019 1:34 PM Departure - Departure Clinical Impression: Pneumonia Qualifiers: Pneumonia type: due to unspecified organism Laterality: bilateral Lung location: unspecified part of lung Qualified Code(s): J18.9 - Pneumonia, unspecified organism Time of Disposition: 15:45 - 11/19/19 Disposition: Admit Patient Condition: Serious Home Medications: Ambulatory Orders Albuterol Inhaler [Ventolin Hfa Inhaler] 1 puff INH QID PRN 12/16/16 Aspirin [Aspirin EC] 81 mg PO DAILY 12/16/16 Atenolol [Tenormin] 25 mg PO BID 12/16/16 Atorvastatin Calcium [Lipitor] 40 mg PO BEDTIME 12/16/16 diphenhydrAMINE HCL [Benadryl] 50 mg PO PRN PRN MDD 50 12/16/16 Cholecalciferol [Vitamin D3] 5,000 unit PO DAILY 11/19/19 Cilostazol 100 mg PO BID 11/19/19 Cyclobenzaprine HCl [Cyclobenzaprine Hydrochlo] 10 mg PO BEDTIME 11/19/19 Furosemide 20 mg PO PRN 11/19/19 Gabapentin 100 mg PO TID 11/19/19 Pantoprazole Sodium 40 mg PO DAILY 11/19/19 Potassium Chloride [K-Tab] 8 meq PO PRN 11/19/19 Tiotropium [place]-Olodaterol [Stiolto Respimat 2.5-2.5 Mcg/Act] 2 aer IN DAILY 11/19/19 Decision To Admit - Decistion To Admit Decision to Admit Date: 11/19/19 Decision to Admit Time: 14:20
--- NOTE | 2019-11-19 15:52 | HP ---
SUPERVISING PHYSICIAN: Nate Denny MD CHIEF COMPLAINT: Cough, wheezing, shortness of breath. HISTORY OF PRESENT ILLNESS: Ms. Nunez is a 74-year-old female patient who presented to the Emergency Room via EMS from home complaining of fever, shortness of breath and hypotension. EMS noted the patient was hypoxic when they got to her house, O2 level on room air was 84%. She does have a history of chronic obstructive pulmonary disease, but normally only wears oxygen at night. She endorses that in the last 3 to 4 days, she has been wearing oxygen 24/7. Once EMS placed a nasal cannula on the patient at 2 liters, her O2 saturations did improve to 92%. When she got to the Emergency Room, she was complaining of shortness of breath, fever, generalized body aches as well as just not feeling well. En route, she was hypotensive with systolic in the 70s. They gave her some IV fluids initially and systolic did improve up to 92. Initially in the Emergency Room, temperature was 100.4, she was tachycardic at 114 with blood pressure 87/53, respirations 22 to 26 with some notable shortness of breath and saturation 92% on nasal cannula. Initially, lab work showed a leukocytosis of 11,800 with a left shift. Blood gas analysis on 2 liter nasal cannula showed 98% saturation, pH 7.37, normal pCO2 of 37, pO2 104. Chemistry showed normal electrolytes. She had increased creatinine level at 1.58. Review of her past records showed that her creatinine runs about 1.1. Lactic acid was 1.2. Liver functions were all within normal limits. Troponin was less than 0.02. BNP 155. BioFire panel was sent to [facility] which came back negative for the flu and all other viral species as tested. Chest x-ray, single view, per radiologic interpretation showed airspace opacities identified throughout the right lung and left lower lobe concerning for multifocal pneumonia. She was given fluids due to the hypotension and concern for sepsis, blood cultures were completed although lactic acid was normal. She was started on antibiotic coverage with Rocephin and azithromycin due to the multifocal pneumonia and is now going to be admitted for continuation of treatment with chronic obstructive pulmonary disease exacerbation secondary to community acquired pneumonia. The patient was admitted in stable condition. She was also again tested with BioFire, which was negative and given the current state of COVID-19 with cases being present within [place], she will be tested for COVID-19 as she has been out in the community within the last week and cannot completely rule out contact with the individuals that are positive at this point. She will be placed in airborne isolation. PAST MEDICAL HISTORY: 1. Chronic obstructive pulmonary disease. 2. Osteoporosis. 3. Coronary artery disease with coronary artery bypass graft times 3 and stent placement in 2016. PAST SURGICAL HISTORY: 1. Appendectomy. 2. Coronary artery bypass graft, 3 vessels in 2010. 3. Cholecystectomy. 4. Hysterectomy in 1983. 5. Multiple neck surgeries. 6. Stent placement done by Dr. Trotter in 2016. HOME MEDICATIONS: 1. Benadryl 50 mg p.r.n. as needed. 2. Stiolto Respimat 2.5-2.5 mcg 2 actuators inhaled daily. 3. Potassium chloride 8 mEq daily as needed. 4. Pantoprazole 40 mg daily. 5. Gabapentin 100 mg b.i.d. 6. Lasix 20 mg as needed. 7. Cyclobenzaprine 10 mg at bedtime. 8. Cilostazol 100 mg b.i.d. 9. Vitamin D3 5,000 units daily. 10. Lipitor 40 mg at bedtime. 11. Tenormin 25 mg b.i.d. 12. Aspirin 81 mg daily. 13. Albuterol inhaler 1 puff q.i.d. as needed. ALLERGIES: SULFA ANTIBIOTICS. FAMILY HISTORY: Father at age 74 secondary to coronary artery disease complications. Mother at age 52 with lung cancer and coronary artery disease. She has two brothers that have hypertension and hypothyroidism. She has one sister that medical history is unknown. She had 3 sons, one is secondary to AIDS, one has hypertension and the other has obesity. SOCIAL HISTORY: The patient lives in [place], [place]. She is . I believe she lives alone. 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 She has 3 children. She does have a past history of cigarette smoking, but quite in 2015. She denies any illicit drug use or alcohol usage. REVIEW OF SYSTEMS: CONSTITUTIONAL: Positive for general malaise, fevers, weakness. HEENT: Negative for headaches, sore throats, earaches, nasal congestion, vision changes. RESPIRATORY: As noted in history of present illness, positive for coughing, orthopnea, increasing shortness of breath. Denies any stridor or wheezing. CARDIOVASCULAR: Negative for chest pain, palpitations, tachycardia or syncopal episodes. GASTROINTESTINAL: Negative for nausea, vomiting, diarrhea, constipation or abdominal pain. GENITOURINARY: Negative for dysuria, hematuria, polyuria. MUSCULOSKELETAL: As noted in history of present illness, chronic back pain, neck pain. SKIN: Negative for lesions, rashes, moles or unexplained changes. NEUROLOGIC: She has a history of tremors and as noted in history of present illness, weakness, but denies ataxia or seizures, no focal neuro motor deficits. HEMATOLOGIC: Denies easy bruising, unexplained bleeding or transfusion reactions. PHYSICAL EXAMINATION: VITAL SIGNS: Temperature 100.4. Pulse 111. Blood pressure 87/53. Respirations 24 to 26. SPO2 92% on 2 liters nasal cannula at rest. Admission weight 69.4 kg. GENERAL: The patient is resting comfortably. She does appear ill, somewhat dehydrated, but no obvious distress noted. HEENT: Tympanic membranes clear bilaterally. Oropharynx is pink with notably dry mucous membranes. NECK: Supple, nontender with full range of motion. No jugular venous distention noted. RESPIRATORY: Lung sounds decreased throughout with diffuse rales with rhonchi in bilateral bases and mild inspiratory and expiratory wheezing. CARDIOVASCULAR: Regular rate and rhythm without any appreciable murmurs, gallops, or rubs. ABDOMEN: Soft, nontender. Positive bowel sounds. No tenderness to palpation, no peritoneal signs, rebound tenderness or guarding. BACK: No vertebral or CVA tenderness. EXTREMITIES: She is moving all extremities ad josue. There is no cyanosis, clubbing or edema. NEUROLOGIC: Cranial nerves II-XII are grossly intact. Facial features are symmetrical. Extraocular movements are within normal limits. There is no nystagmus noted. The patient is alert and oriented times three. SKIN: Warm, pink and dry. LABORATORY: White count 11,800, hemoglobin 9.8, hematocrit 29.5, platelet count 224,000. Differential does show a left shift. Coagulation studies showed a normal PT and PTT. Blood gas analysis was essentially within normal limits on 2 liters nasal cannula at rest with pH 7.37, pO2 104, pCO2 37, bicarb 21, base excess 3.4. Total hemoglobin on ABG was 8.8. Chemistries showed normal electrolytes with BUN 18, creatinine 1.58, lactic acid 1.2, calcium 7.9 corrected to 8.4 with albumin 3.0. Total bilirubin was within normal limits as well as ALT and AST. Troponin less than 0.02. BNP was only slightly elevated at 155. BioFire panel was negative. COVID-19 testing is pending. Blood cultures pending. Sputum culture pending. RADIOLOGY: Single-view chest x-ray per radiologic interpretation shows multifocal pneumonia. Please see that report for full details. ASSESSMENT: 1. Multilobar pneumonia, community acquired. 2. Sepsis secondary to #1 with the patient being tachycardic, hypotensive, tachypneic with a fever on admission and leukocytosis. 3. Hypotension secondary to #1. 4. Acute exacerbation of chronic obstructive pulmonary disease secondary to #1. 5. Severe coronary artery disease with coronary artery bypass graft times three vessels and stent placement 6. Normocytic/normochromic anemia with no evidence of acute loss, requiring further monitoring. 7. Renal insufficiency, probably due to prerenal azotemia and mild dehydration. 8. Dehydration with hypovolemia resulting in hypotension and contributing to exacerbating her renal insufficiency. 9. Possible COVID-19 infection pending testing results with BioFire exam negative for flu and strep. PLAN: Ms. Nunez is going to be admitted for initiation of treatment for her community acquired pneumonia which is multifocal and multilobular. At this point, we give her Rocephin and azithromycin. She will be on breathing treatments with multidose inhalers given that she is droplet isolation with question of COVID-19 infection. We will await culture results and results of COVID testing as well as sputum and blood cultures. We will go ahead and continue with fluid resuscitation at 30 mL per kg and continue IV maintenance as needed based on the patient's response. She will be on telemetry. We will have on DVT prophylaxis per protocol with Lovenox. I anticipate her length of stay to be at least 2 to 3 days pending results of COVID testing and clinical response to treatment. We will try to get old records. We will try to get an echocardiogram if there is a recent one as well as review her records from cardiology. We will review her home medications and restart those as appropriate to her care. Until the patient can transition her to oral antibiotic therapy and outpatient management, we will continue to monitor and treat as needed. #[id number] [facility]
[2019-11-19] MEDS ORDERED: ALBUTEROL SULFATE 2.5 MG/3 ML VIAL NEB PRN (17:27)
[2019-11-19] MEDS ORDERED: IBUPROFEN 400 MG TAB PO PRN (17:27)
[2019-11-19] MEDS ORDERED: ONDANSETRON INJ 4 MG/2 ML VIAL IV PRN (17:27)
[2019-11-19] MEDS ORDERED: MAGNESIUM HYDROXIDE 30 ML UD PO PRN (17:27)
[2019-11-19] MEDS ORDERED: IV SET AND CAP CHANGE INJ INJ SCH (17:30)
[2019-11-19] MEDS ORDERED: CYCLOBENZAPRINE HCL 10 MG TAB ONE (19:21)
[2019-11-19] MEDS ORDERED: ALBUTEROL INHALER 64 PUFF/8GM INH ONE (19:35)
[2019-11-19] MEDS: ATENOLOL 25 MG TAB PO SCH (20:00)
[2019-11-19] MEDS: GABAPENTIN 100 MG CAP PO SCH (20:00)
[2019-11-19] MEDS: ENOXAPARIN SODIUM 40 MG/0.4 ML SYG SUBCU SCH (20:00)
[2019-11-19] MEDS ORDERED: IPRATROPIUM/ALBUTEROL 3 ML VIAL INH SCH (20:00)
[2019-11-19] MEDS: CILOSTAZOL 100 MG TAB PO SCH (20:01)
[2019-11-19] MEDS: ACETAMINOPHEN 325 MG TAB PO PRN (20:06)
[2019-11-19] MEDS ORDERED: KCL 20 MEQ/NS 1,000 ML IVS PRN (20:12)
[2019-11-19] MEDS ORDERED: methylPREDNISolone SODIUM SUC 125 MG/2 ML VIAL IV ONE (20:18)
[2019-11-19] MEDS ORDERED: BUDESONIDE/FORMOTEROL 160/4.5 60 PUFF/6 GM INH INH ONE (20:32)
[2019-11-19] MEDS ORDERED: KCL 20 MEQ/NS 1,000 ML IVS ONE (20:38)
[2019-11-19] MEDS: ALBUTEROL INHALER 64 PUFF/8GM INH SCH (20:59)
[2019-11-19] MEDS ORDERED: CYCLOBENZAPRINE TAB (ER DISP) 10 MG TAB PO SCH (21:00)
[2019-11-19] MEDS: BUDESONIDE/FORMOTEROL 160/4.5 60 PUFF/6 GM INH INH SCH (21:29)
[2019-11-20] MEDS: PANTOPRAZOLE SODIUM IV 40 MG VIAL IV SCH (05:56)
[2019-11-20] MEDS: ALBUTEROL INHALER 64 PUFF/8GM INH SCH ×4 (07:35→20:30)
[2019-11-20] MEDS: BUDESONIDE/FORMOTEROL 160/4.5 60 PUFF/6 GM INH INH SCH ×2 (07:35→20:30)
--- NOTE | 2019-11-20 07:52 | RAD ---
EXAM: Chest,1 View HISTORY: Pneumonia COMPARISON: Chest one view 11/19/2019 TECHNIQUE: Chest one view portable AP upright FINDINGS: Trachea midline. Heart size within normal limits. Moderate hazy and stranding opacities throughout right lung and at left lower lung field. No pneumothorax or significant pleural effusion. Diffuse decreased bone density. Sternotomy and mediastinal surgical clips suggest CABG. Right upper abdominal surgical clips. IMPRESSION: No significant change in overall lung aeration. Moderate hazy and stranding opacities throughout right lung and at left lower lung field. Causes include pulmonary fibrosis, subsegmental atelectasis, pulmonary edema, and infection. Electronically signed by: Ezequiel Erickson MD 11/20/2019 7:50 AM CDT
[2019-11-20] MEDS ORDERED: SODIUM CHLORIDE 0.9% (FLUSH) 10 ML SYG IV ONE (08:02)
[2019-11-20] MEDS ORDERED: AZITHROMYCIN 250 MG TAB PO ONE (08:47)
[2019-11-20] MEDS ORDERED: SODIUM CHL 0.9% 50ML MIN-BAG+ 50 ML IVPB ONE (08:47)
[2019-11-20] MEDS ORDERED: cefTRIAXone SODIUM 1 GM VIAL ONE (08:48)
[2019-11-20] MEDS: CILOSTAZOL 100 MG TAB PO SCH ×2 (08:57→20:38)
[2019-11-20] MEDS: GABAPENTIN 100 MG CAP PO SCH ×3 (08:57→20:38)
[2019-11-20] MEDS: ASPIRIN (ENTERIC COATED) 81 MG TAB PO SCH (08:57)
[2019-11-20] MEDS: AZITHROMYCIN 250 MG TAB PO SCH (08:57)
[2019-11-20] MEDS: ACETAMINOPHEN 325 MG TAB PO PRN (08:57)
[2019-11-20] MEDS: cefTRIAXone SODIUM 1 GM in SODIUM CHL 0.9% 50ML MIN-BAG+ 50 ML IVPB SCH (09:01)
[2019-11-20] MEDS: ATENOLOL 25 MG TAB PO SCH ×2 (09:01→20:38)
--- NOTE | 2019-11-20 18:14 | PN ---
SUPERVISING PHYSICIAN: Nate Denny MD DATE: 11/20/19 SUBJECTIVE: The patient still is awfully short of breath. She feels like she is doing a little bit better. She is no wheezing. I am going to put her back on steroids today at 6 o'clock. We will do q.12h. for two more doses. She has not had any fevers, chest pains, nausea, vomiting or diarrhea. She has remained afebrile since admission. OBJECTIVE: VITAL SIGNS: Temperature 97.6. Pulse 80. Blood pressure 117/64. Respirations 18. Saturation 99% on 2 liters nasal cannula. I&Os are showing negative balance of 310. Weight 69.4 kg. GENERAL: The patient visibly looks a little short of breath, but she says that is kind of her normal appearance. She does not appear to be in any acute distress. She is not anxious. She does not appear to be in any respiratory distress. She is alert. CHEST: Lung sounds are improving a little bit today. No wheezing, but she is still diminished towards the bases with just very faint rhonchi heard on the posterolateral aspect on the right side, more midlung. HEART: Regular rate and rhythm. ABDOMEN: Soft, nontender. EXTREMITIES: No edema. NEUROLOGIC: Alert and oriented times three. LABORATORY: White count elevated at 14,600, hemoglobin 8.3, hematocrit 25.2, platelet count 175,000. Differential does show a left shift. Chemistries show sodium 113, normal potassium and sodium. BUN 21, creatinine 1.28 which is improved from admission of 1.58. Glucose 144. MICROBIOLOGY: Blood cultures remain negative at 24 hours. Sputum culture pending. COVID-19 pending. BioFire exam negative. RADIOLOGY: Chest x-ray this morning per radiologic interpretation shows no significant change in lung aeration. The is moderate haze and stranding opacity throughout the right lung and left lower lobe lung rosas. ASSESSMENT: 1. Multilobar pneumonia, community acquired. 2. Sepsis secondary to #1 with the patient being tachycardic, hypotensive, tachypneic with a fever on admission and leukocytosis. 3. Hypotension secondary to #1, now normotensive after fluids. 4. Acute exacerbation of chronic obstructive pulmonary disease secondary to #1. 5. Severe coronary artery disease with coronary artery bypass graft times three vessels and stent placement 6. Normocytic/normochromic anemia with no evidence of acute loss, requiring further monitoring. 7. Renal insufficiency, probably due to prerenal azotemia and mild dehydration. 8. Dehydration with hypovolemia resulting in hypotension and contributing to exacerbating her renal insufficiency. 9. Possible COVID-19 infection pending testing results with BioFire exam negative for flu and strep. PLAN: We will continue coverage with antibiotics of Rocephin and azithromycin. She did have fluid resuscitation and at this point seems to be adequately hydrated. We will go ahead and saline lock her. She has adequate oral intake. Creatinine did improve back to baseline levels. She remains on multidose albuterol inhaler. She did well with a dose of steroids of 125 mg Solu-Medrol. We will continue this today with Solu-Medrol 60 mg starting at 1800 and will continue for 2 to 3 more doses and reassess in the morning. We will hold off on x-rays in the morning and try to limit exposure to as many people as we can until she has COVID testing back. Of course, if we need to, we will certainly repeat chest x-ray. We will repeat labs in the morning. I resumed her home medications. She is on Lovenox per protocol. She is on proton pump inhibitor per protocol for gastric protection. I anticipate her length of stay to be at least another 2 to 3 days pending both clinical resolution of her symptoms and able to transition to outpatient management as well as her COVID testing which is pending. Until the patient can transition to outpatient management, we will continue to monitor and treat as needed. #[id number] [facility]
[2019-11-20] MEDS ORDERED: methylPREDNISolone SODIUM SUC 125 MG/2 ML VIAL ONE ×2 (19:32→23:24)
[2019-11-20] MEDS: methylPREDNISolone SODIUM SUC 125 MG/2 ML VIAL IV SCH ×2 (19:33→23:53)
[2019-11-20] MEDS: ENOXAPARIN SODIUM 40 MG/0.4 ML SYG SUBCU SCH (20:38)
[2019-11-20] MEDS: CYCLOBENZAPRINE HCL 10 MG TAB PO SCH (20:38)
[2019-11-21] MEDS ORDERED: methylPREDNISolone SODIUM SUC 125 MG/2 ML VIAL ONE (04:02)
[2019-11-21] MEDS: PANTOPRAZOLE SODIUM IV 40 MG VIAL IV SCH (06:35)
[2019-11-21] MEDS: methylPREDNISolone SODIUM SUC 125 MG/2 ML VIAL IV SCH ×3 (06:35→22:35)
[2019-11-21] MEDS ORDERED: SODIUM CHL 0.9% 50ML MIN-BAG+ 50 ML IVPB ONE (08:47)
[2019-11-21] MEDS ORDERED: cefTRIAXone SODIUM 1 GM VIAL ONE (08:48)
[2019-11-21] MEDS: BUDESONIDE/FORMOTEROL 160/4.5 60 PUFF/6 GM INH INH SCH ×2 (08:59→21:00)
[2019-11-21] MEDS: ALBUTEROL INHALER 64 PUFF/8GM INH SCH ×4 (09:00→21:00)
[2019-11-21] MEDS ORDERED: FUROSEMIDE INJ 20 MG/2 ML VIAL IV ONE (09:00)
[2019-11-21] MEDS: GABAPENTIN 100 MG CAP PO SCH ×3 (09:01→20:44)
[2019-11-21] MEDS: cefTRIAXone SODIUM 1 GM in SODIUM CHL 0.9% 50ML MIN-BAG+ 50 ML IVPB SCH (09:01)
[2019-11-21] MEDS: CILOSTAZOL 100 MG TAB PO SCH ×2 (09:01→20:44)
[2019-11-21] MEDS: ACETAMINOPHEN 325 MG TAB PO PRN (09:01)
[2019-11-21] MEDS: AZITHROMYCIN 250 MG TAB PO SCH (09:01)
[2019-11-21] MEDS: ATENOLOL 25 MG TAB PO SCH ×2 (09:01→20:44)
[2019-11-21] MEDS: ASPIRIN (ENTERIC COATED) 81 MG TAB PO SCH (09:01)
--- NOTE | 2019-11-21 13:26 | PN ---
SUPERVISING PHYSICIAN: Nate Denny MD DATE: 11/21/19 SUBJECTIVE: The patient is lying in bed. She is awake and alert. She has no complaints of shortness of breath. I did inform her that her COVID-19 tests were negative. She did have a complaint that she had some tremors in her hands that have been going on for over 6 months and I told her she needed a workup with her primary care physician, Dr. Rose. OBJECTIVE: VITAL SIGNS: Temperature 98.2, heart rate 93, blood pressure 154/68, respiratory rate 20, oxygen saturation 95% on 2 liters nasal cannula. RESPIRATORY: Diminished at the bases. Otherwise, clear to auscultation. CARDIAC: Regular rate and rhythm. GI: Abdomen soft, nondistended, non-tender. Bowel sounds are positive. NEUROLOGIC: She is awake, alert, and oriented x3. LABORATORY: WBC 15,100 with hemoglobin and hematocrit of 91 and 28. Sodium 138, potassium 5.3, chloride 111, carbon dioxide 20, BUN 22, creatinine 1.06, calcium 8, COVID-19 tests are negative. Sputum culture is pending. Preliminary blood cultures show no growth after 24 hours. All other labs and films have been reviewed via the EMR. ASSESSMENT: 1. Multilobar pneumonia, community acquired. 2. Sepsis secondary to #1 with the patient being tachycardic, hypotensive, tachypneic with a fever on admission and leukocytosis. 3. Hypotension secondary to #1, now normotensive after fluids. 4. Acute exacerbation of chronic obstructive pulmonary disease secondary to #1. 5. Severe coronary artery disease with coronary artery bypass graft times three vessels and stent placement 6. Normocytic/normochromic anemia with no evidence of acute loss, requiring further monitoring. 7. Renal insufficiency, probably due to prerenal azotemia and mild dehydration. 8. Dehydration with hypovolemia resulting in hypotension and contributing to exacerbating her renal insufficiency. 9. Negative COVID-19 results. 10. Upper extremity tremors with unknown etiology. PLAN: We will continue present supportive care. I have given her some Lasix as she takes it at home occasionally if she feels somewhat swollen. We will do bladder training and try to discontinue that in the morning. I have ordered some lab and chest x-ray in the morning. I have also decreased her IV Solu- Medrol and will switch to oral prednisone tomorrow. Hopefully, she can be discharged in the next 24 to 48 hours. Close followup with Dr. Rose. We will continue to monitor her closely and follow as needed. #[id number] [facility]
[2019-11-21] MEDS: CYCLOBENZAPRINE HCL 10 MG TAB PO SCH (20:44)
[2019-11-21] MEDS: ENOXAPARIN SODIUM 40 MG/0.4 ML SYG SUBCU SCH (20:45)
[2019-11-21] MEDS ORDERED: MELATONIN 3 MG TAB PO SCH (21:00)
[2019-11-22] MEDS: PANTOPRAZOLE SODIUM IV 40 MG VIAL IV SCH (06:04)
[2019-11-22] MEDS: methylPREDNISolone SODIUM SUC 125 MG/2 ML VIAL IV SCH (06:04)
[2019-11-22] MEDS: BUDESONIDE/FORMOTEROL 160/4.5 60 PUFF/6 GM INH INH SCH (08:28)
[2019-11-22] MEDS: ALBUTEROL INHALER 64 PUFF/8GM INH SCH (08:28)
[2019-11-22] MEDS ORDERED: SODIUM CHL 0.9% 50ML MIN-BAG+ 50 ML IVPB ONE (08:36)
[2019-11-22] MEDS ORDERED: cefTRIAXone SODIUM 1 GM VIAL ONE (08:37)
[2019-11-22] MEDS: GABAPENTIN 100 MG CAP PO SCH (08:43)
[2019-11-22] MEDS: ATENOLOL 25 MG TAB PO SCH (08:43)
[2019-11-22] MEDS: cefTRIAXone SODIUM 1 GM in SODIUM CHL 0.9% 50ML MIN-BAG+ 50 ML IVPB SCH (08:43)
[2019-11-22] MEDS: CILOSTAZOL 100 MG TAB PO SCH (08:43)
[2019-11-22] MEDS: AZITHROMYCIN 250 MG TAB PO SCH (08:43)
[2019-11-22] MEDS: ASPIRIN (ENTERIC COATED) 81 MG TAB PO SCH (08:43)
[2019-11-22] MEDS ORDERED: predniSONE 20 MG TAB PO SCH (09:00)
[2019-11-22 09:53] VITALS: BP 155/70; TEMP 97.8; O2SAT 95
--- NOTE | 2019-11-24 08:50 | DS ---
SUPERVISING PHYSICIAN: Nate Denny MD DISCHARGE DIAGNOSIS: 1. Multilobar pneumonia, community acquired. 2. Sepsis secondary to #1 with the patient being tachycardic, hypotensive, tachypneic with a fever on admission and leukocytosis. 3. Hypotension secondary to #1, now normotensive after fluids. 4. Acute exacerbation of chronic obstructive pulmonary disease secondary to #1. 5. Severe coronary artery disease with coronary artery bypass graft times three vessels and stent placement 6. Normocytic/normochromic anemia with no evidence of acute loss, requiring further monitoring. 7. Renal insufficiency, probably due to prerenal azotemia and mild dehydration. 8. Dehydration with hypovolemia resulting in hypotension and contributing to exacerbating her renal insufficiency. 9. Negative COVID-19 results. 10. Upper extremity tremors with unknown etiology. HISTORY OF PRESENT ILLNESS: This is a 74-year-old female patient who presented to the Emergency Room via EMS from home complaining of fever, shortness of breath and hypotension. EMS noted the patient was hypoxic when they got to her house, O2 level on room air was 84%. She does have a history of chronic obstructive pulmonary disease, but normally only wears oxygen at night. She endorses that in the previous 3 to 4 days, she has been wearing oxygen 24/7. After placing the patient on nasal cannula on the patient at 2 liters, her O2 saturation did improve to 92%. On admission to the Emergency Room, she complained of shortness of breath, fever, generalized body aches as well as just not feeling well. En route to the hospital, she was hypotensive with systolic in the 70s. She got IV fluids and systolic blood pressure came up to 92. In the Emergency Room, her admitting vital signs showed temperature 100.4 with tachycardia at 114 with blood pressure 87/53, respirations 22 to 26 with notable shortness of breath and saturation 92% on nasal cannula. Initially, lab work showed a leukocytosis of 11,800 with a left shift. Blood gas analysis on 2 liters nasal cannula showed 98% saturation, pH 7.37, normal pCO2 of 37, pO2 104. Chemistry showed normal electrolytes. She had increased creatinine level at 1.58. Baseline creatinine is about 1.1. Lactic acid was 1.2. Liver functions were within normal limits. Troponin was less than 0.02. BNP 155. BioFire panel was sent to [facility] which came back negative for the flu and all other viral species as tested. Chest x-ray, single view, per radiologic interpretation showed airspace opacities identified throughout the right lung and left lower lobe concerning for multifocal pneumonia. She was given additional fluids. There were concerns for sepsis, so blood cultures were done. She was started on antibiotic coverage with Rocephin and azithromycin and was admitted to the Floor for continuation of treatment for chronic obstructive pulmonary disease with exacerbation as well as community acquired pneumonia multifocal pneumonia. She was admitted in stable condition. Due to her high risk factors, she was put in airborne isolation and was tested for COVID-19. HOSPITAL COURSE: The patient was admitted for community acquired pneumonia as well as exacerbation of chronic obstructive pulmonary disease. She was continued on Rocephin and azithromycin with breathing treatments. She was also given judicious fluids as well as placed on telemetry and the pneumonia guidelines were followed. She was on Lovenox for DVT prophylaxis. She was short of breath for 24 to 36 hours after she was admitted, but she slowly improved. She had no wheezing. Her steroids were tapered off. Her creatinine improved back to baseline levels. Steroids were tapered to oral prednisone. Her COVID-19 results were negative. She was taken out of isolation. Her IV fluids were discontinued. Her only other complaint was that she did have some tremors of unknown etiology that she had been having for over 6 months. I recommended she discuss that with Dr. Rose. She was given some Lasix as she felt somewhat swollen. Her Santos catheter was discontinued. She feels that she is at her baseline breathing with he exception that she does seem to need 1 liter of oxygen during the day, but she says that happens frequently and she occasionally does have to wear her oxygen during the day. She will be discharged home today in stable condition. LABORATORY: Her WBCs went up to 15.1, most likely secondary to steroids and today are 9.2. Hemoglobin and hematocrit are stable, although somewhat low and it is at 8.8 and 27. She continues to have a left shift on her differential. Sodium remained stable and today is 141. Potassium did go up to 5.3, but today is 4.4. Chloride 109, carbon dioxide 25, BUN 19, glucose 120, calcium 8, magnesium 2. Urinalysis was unremarkable. COVID-19 testing was negative. DISCHARGE PLAN: The patient till be discharged to home in stable condition. She is to resume her previous diet as well as increase her activity as tolerated. In addition to her home medications, she will continue on her cefdinir and azithromycin as well as steroid taper. She has a followup appointment with Dr. Rose via phone on 11/27/19 at 11 AM. She is to return to the hospital or followup with Dr. Rose for any problems or complications. DISCHARGE MEDICATIONS: 1. Diphenhydramine. 2. Lipitor. 3. Tenormin. 4. Aspirin. 5. Albuterol. 6. Cyclobenzaprine. 7. Gabapentin. 8. Furosemide. 9. Vitamin D3. 10. Potassium chloride. 11. Pantoprazole. 12. Cilostazol. 13. Stiolto Respimat. 14. Azithromycin. 15. Cefdinir. 16. Prednisone. #[id number] MTDD
== END 2019-11-22 12:00 | disposition home or self-care (01) | DRG 871 ==
LOC: ER 12:06 → MS 15:51 → OBSVTOIN 15:51 → MS 11-21 15:24
PROVIDERS: ADMIT Nurse Practitioner Family; ATTEND Nurse Practitioner Acute Care
DX: A41.9 Sepsis, unspecified organism (principal); J18.9 Pneumonia, unspecified organism; J44.1 Chronic obstructive pulmonary disease with (acute) exacerbation; J44.0 Chronic obstructive pulmonary disease with (acute) lower respiratory infection; I95.9 Hypotension, unspecified; I25.10 Atherosclerotic heart disease of native coronary artery without angina pectoris; D50.9 Iron deficiency anemia, unspecified; E86.0 Dehydration; N28.9 Disorder of kidney and ureter, unspecified; E86.1 Hypovolemia; R25.1 Tremor, unspecified; R09.02 Hypoxemia; M81.0 Age-related osteoporosis without current pathological fracture; Z95.1 Presence of aortocoronary bypass graft; Z79.82 Long term (current) use of aspirin; Z79.899 Other long term (current) drug therapy; Z88.2 Allergy status to sulfonamides; Z87.891 Personal history of nicotine dependence

== ENCOUNTER 2019-11-22 20:39 | Observation (INO) | payer MEDICARE ==
[2019-11-22] MEDS ORDERED: FUROSEMIDE INJ 40 MG/4 ML VIAL IV ONE (21:02)
[2019-11-22] MEDS ORDERED: ASPIRIN TABLET 325 MG TAB PO ONE (21:02)
[2019-11-22] MEDS ORDERED: NITROGLYCERIN 0.4 MG 25 EA TAB SL ONE (21:02)
[2019-11-22] MEDS ORDERED: SODIUM CHLORIDE 0.9% (FLUSH) 10 ML SYG IV PRN (21:02)
[2019-11-22] MEDS ORDERED: ONDANSETRON INJ 4 MG/2 ML VIAL IV ONE (21:02)
--- NOTE | 2019-11-22 21:12 | ED.PDOC ---
History of Present Illness - General Chief Complaint: Cardiovascular Problem Stated Complaint: swelling Time Seen by Provider: 11/22/19 21:02 Source: patient, Vital Signs reviewed, family Exam Limitations: no limitations - History of Present Illness Initial Comments: This is a 74-year-old female with history of three-vessel CABG who was just discharged from the hospital earlier today after admission for multifocal pneumonia. She returns for increasing leg swelling, exertional dyspnea that is progressively worsened throughout the day. She states her urine output has not been good today. She takes 20 mg of Lasix daily, no recent changes in that medication. She denies any chest pain, hemoptysis, fever. No previous history of congestive heart failure according to the patient. Timing/Duration: 4-6 hours Severity: moderate Improving Factors: rest Worsening Factors: movement Associated Symptoms: shortness of breath Allergies/Adverse Reactions: Allergies Sulfa Antibiotics Allergy (Verified 11/22/19 20:54) Home Medications: Ambulatory Orders Albuterol Inhaler [Ventolin Hfa Inhaler] 1 puff INH QID PRN 12/16/16 Aspirin [Aspirin EC] 81 mg PO DAILY 12/16/16 Atenolol [Tenormin] 25 mg PO BID 12/16/16 Atorvastatin Calcium [Lipitor] 40 mg PO BEDTIME 12/16/16 diphenhydrAMINE HCL [Benadryl] 50 mg PO PRN PRN MDD 50 12/16/16 Cholecalciferol [Vitamin D3] 5,000 unit PO DAILY 11/19/19 Cilostazol 100 mg PO BID 11/19/19 Cyclobenzaprine HCl [Cyclobenzaprine Hydrochlo] 10 mg PO BEDTIME 11/19/19 Furosemide 20 mg PO PRN 11/19/19 Gabapentin 100 mg PO TID 11/19/19 Pantoprazole Sodium 40 mg PO DAILY 11/19/19 Potassium Chloride [K-Tab] 8 meq PO PRN 11/19/19 Tiotropium [place]-Olodaterol [Stiolto Respimat 2.5-2.5 Mcg/Act] 2 aer IN DAILY 11/19/19 Azithromycin Tab [Zithromax Tab] 250 mg PO QD #3 tab 11/22/19 Cefdinir 300 mg PO BID #20 capsule 11/22/19 Prednisone See Taper PO DAILY #30 tab 11/22/19 Review of Systems - Review of Systems Constitutional: Denies: chills, fever EENTM: Denies: ear pain, nose congestion, throat pain Respiratory: States: cough, orthopnea, short of breath Cardiology: States: edema. Denies: chest pain Gastrointestinal/Abdominal: Denies: diarrhea, nausea, vomiting Genitourinary: States: other - Decreased urine output today. Denies: dysuria, frequency Musculoskeletal: Denies: back pain, joint pain, muscle pain Skin: Denies: lesions, rash Neurological: Denies: headache, numbness, paresthesia Endocrine: Denies: excessive sweating, flushing, unexplained weight gain, unexplained weight loss Hematologic/Lymphatic: Denies: anemia, blood clots All other Systems: Reviewed and Negative Past Medical History (General) - Patient Medical History Hx Seizures: No Hx Stroke: No Hx Dementia: No Hx Asthma: No Hx of COPD: Yes Hx Cardiac Disorders: Yes - [place] x's 2, stents x's 3, CABG Hx Congestive Heart Failure: Yes Hx Pacemaker: No Hx Hypertension: Yes Hx Diabetes: No Hx Gastroesophageal Reflux: Yes Hx Renal Disease: No Hx Cancer: No Hx Hepatitis C: No Hx MRSA: No Surgical History: cholecystectomy, Hysterectomy - Vaccination History Hx Tetanus, Diphtheria Vaccination: Yes Hx Influenza Vaccination: No Hx Pneumococcal Vaccination: Yes - Social History Hx Tobacco Use: Yes Hx Alcohol Use: No Hx Substance Use: No Hx Physical Abuse: No Hx Emotional Abuse: No Family Medical History - Family History Father Living Status: Hx Family Asthma: No Hx Family Congestive Heart Failure: No Hx Family Hypertension: Yes Hx Family Stroke: No Hx Cardiac Disease: Yes - mom/dad Hx Family Diabetes: No Hx Family Cancer: Yes - mom-Lungs Physical Exam - Physical Exam General Appearance: Alert, Comfortable Ears, Nose, Throat: hearing grossly normal, normal ENT inspection, normal pharynx Neck: full range of motion, supple, normal inspection Respiratory: no respiratory distress, no accessory muscle use, crackles - Bilateral bases Cardiovascular/Chest: normal peripheral pulses, regular rate, rhythm, no murmur, JVD, other - 1-2+ pitting edema to both lower extremities up to the level of the knee Gastrointestinal/Abdominal: non tender, soft Back Exam: no CVA tenderness Extremity: normal range of motion, non-tender, no calf tenderness, swelling Neurologic: no motor/sensory deficits, alert, normal mood/affect, oriented x 3 Skin Exam: normal color, warm/dry Progress - Progress Progress: 11/22/19 21:38 Discussed with Naz Payton NP hospitalist. Reviewed labs. She requested repeat troponin to ensure troponin elevation is stable and call back when troponin is resulted 11/22/19 23:47 Discussed with Naz Payton NP hospitalist. Will admit for diuresis and further work-up of CHF. 11/22/19 23:49 Rechecked. Discussed plan for admission. All questions answered. Patient agrees with plan. - Results/Orders Results/Orders: EKG interpreted by me at 2118. Normal sinus rhythm, rate of 82, normal axis, normal intervals, no ST segment elevations or depressions. Chest x-ray shows resolving right-sided infiltrate, with diffuse patchy infiltrate suggestive of edema 11/22/19 21:02 IV Care:Saline Lock per Protoc QSHIFT Telemetry .ONCE Sodium Chloride 0.9% (Flush) [Saline Flush Syringe] 10 ml IV PRN PRN EKG Stat Pulse Ox Stat 11/22/19 21:03 EKG Assessment ONCE Oxygen Delivery Assessment: QSHIFT Pulse Oximetry Assessment DAILY 11/23/19 09:00 Oxygen Daily Laboratory Results - last 24 hr 11/22/19 11/22/19 11/22/19 21:10 21:10 21:10 WBC 10.4 RBC 3.82 L D Hgb 10.8 L D Hct 32.4 L MCV 84.8 MCH 28.4 MCHC 33.5 RDW 15.1 H Plt Count 319 MPV 7.1 L Absolute Neuts (auto) 9.40 H Absolute Lymphs (auto) 0.60 L Absolute Monos (auto) 0.50 Absolute Eos (auto) 0.00 Absolute Basos (auto) 0.00 Neutrophils % 89.8 H Lymphocytes % 5.5 L Monocytes % 4.6 Eosinophils % 0.0 L Basophils % 0.1 Sodium 140 Potassium 4.0 Chloride 106 Carbon Dioxide 25 Anion Gap 13.0 BUN 23 H Creatinine 1.11 BUN/Creatinine Ratio 20.7 H Random Glucose 112 H Serum Osmolality 283.8 Calcium 8.6 Total Bilirubin 0.6 AST 46 H ALT 24 Alkaline Phosphatase 62 Troponin I 0.13 H* B-Natriuretic Peptide 1120.0 H* Serum Total Protein 7.7 Albumin 3.7 Globulin 4.0 H Albumin/Globulin Ratio 0.9 L 11/22/19 23:05 WBC RBC Hgb Hct MCV MCH MCHC RDW Plt Count MPV Absolute Neuts (auto) Absolute Lymphs (auto) Absolute Monos (auto) Absolute Eos (auto) Absolute Basos (auto) Neutrophils % Lymphocytes % Monocytes % Eosinophils % Basophils % Sodium Potassium Chloride Carbon Dioxide Anion Gap BUN Creatinine BUN/Creatinine Ratio Random Glucose Serum Osmolality Calcium Total Bilirubin AST ALT Alkaline Phosphatase Troponin I 0.14 H* B-Natriuretic Peptide Serum Total Protein Albumin Globulin Albumin/Globulin Ratio Departure - Departure Clinical Impression: Elevated troponin Congestive heart failure Qualifiers: Heart failure type: unspecified Heart failure chronicity: acute Qualified Code(s): I50.9 - Heart failure, unspecified Time of Disposition: 23:50 Disposition: Admit Patient Condition: Fair Departure Forms: Patient Portal Self Enrollment Home Medications: Ambulatory Orders Albuterol Inhaler [Ventolin Hfa Inhaler] 1 puff INH QID PRN 12/16/16 Aspirin [Aspirin EC] 81 mg PO DAILY 12/16/16 Atenolol [Tenormin] 25 mg PO BID 12/16/16 Atorvastatin Calcium [Lipitor] 40 mg PO BEDTIME 12/16/16 diphenhydrAMINE HCL [Benadryl] 50 mg PO PRN PRN MDD 50 12/16/16 Cholecalciferol [Vitamin D3] 5,000 unit PO DAILY 11/19/19 Cilostazol 100 mg PO BID 11/19/19 Cyclobenzaprine HCl [Cyclobenzaprine Hydrochlo] 10 mg PO BEDTIME 11/19/19 Furosemide 20 mg PO PRN 11/19/19 Gabapentin 100 mg PO TID 11/19/19 Pantoprazole Sodium 40 mg PO DAILY 11/19/19 Potassium Chloride [K-Tab] 8 meq PO PRN 11/19/19 Tiotropium [place]-Olodaterol [Stiolto Respimat 2.5-2.5 Mcg/Act] 2 aer IN DAILY 11/19/19 Azithromycin Tab [Zithromax Tab] 250 mg PO QD #3 tab 11/22/19 Cefdinir 300 mg PO BID #20 capsule 11/22/19 Prednisone See Taper PO DAILY #30 tab 11/22/19 Decision To Admit - Decistion To Admit Decision to Admit Reason: Admit from ER Decision to Admit Date: 11/22/19 Decision to Admit Time: 23:47
--- NOTE | 2019-11-22 22:00 | RAD ---
EXAM DESCRIPTION: Chest,1 View CLINICAL HISTORY: 74 years Female, SOB, leg swelling COMPARISON: Chest x-ray November 20, 2019 FINDINGS: Patchy opacity in the right lung is again demonstrated appearing decreased. No pneumothorax. No significant pleural effusion. Heart size is normal. Aortic atherosclerosis is present. Post-CABG changes demonstrated. Sternotomy changes noted. Osseous structures are unchanged. IMPRESSION: Patchy airspace opacity in the right lung appearing decreased. Electronically signed by: Carlos Kenney MD 11/22/2019 9:59 PM CDT
--- NOTE | 2019-11-23 00:10 | HP ---
SUPERVISING PHYSICIAN: Nate Denny MD CHIEF COMPLAINT: Swelling and shortness of breath. HISTORY OF PRESENT ILLNESS: This is a 74-year-old female patient who was discharged from the hospital earlier on the same day she presented to the Emergency Room. She has a history of a coronary artery bypass graft in the past as well as some chronic obstructive pulmonary disease and on chronic oxygen use. She had been admitted for multifocal pneumonia and actually had been hypotensive during the early part of her stay. She did receive some fluids in the early part of her admission to stabilize her vital signs. She was at high risk for COVID-19 and actually had been tested for that, although her test results were negative. She takes p.r.n. Lasix at home and actually received several doses of Lasix in the hospital just prior to her discharge. She had gone home and that afternoon she became somewhat short of breath and her lower extremities were quite swollen, much more than she typically has. She came to the Emergency Room and did say that her urine output was low since she had been home. Her initial vital signs were a temperature of 97.9 with heart rate of 85, blood pressure 190/106, respiratory rate of 22, oxygen saturation 88% on room air. She does wear oxygen at home and shortly afterward she was placed on 2 liters nasal cannula and her oxygen saturations came up to the mid 90s. Laboratory studies were done and she ad a WBC of 10.4 with a hemoglobin of 10.8 and hematocrit of 32.4. Her electrolytes were basically within normal limits but her BNP was 1,120. Her initial troponin was 0.13 followed by her next troponin that was 0.14. She had no complaints of chest pain. She was given one dose of diuretics in the Emergency Room as well as some Zofran and Nitroglycerin and I was called for admission. PAST MEDICAL HISTORY: 1. Chronic obstructive pulmonary disease. 2. Osteoporosis. 3. Coronary artery disease with coronary artery bypass graft times 3 in 2010 and stent placement in 2016. PAST SURGICAL HISTORY: 1. Appendectomy. 2. Coronary artery bypass graft, 3 vessels in 2010. 3. Cholecystectomy. 4. Hysterectomy. 5. Multiple neck surgeries. 6. Stent placement done by Dr. Trotter in 2016. HOME MEDICATIONS: 1. Albuterol Nebs. 2. Vitamin D3. 3. Furosemide. 4. Potassium chloride. 5. Aspirin. 6. Atenolol. 7. Atorvastatin. 8. Cilostazol. 9. Cyclobenzaprine. 10. Diphenhydramine. 11. Gabapentin. 12. Pantoprazole. ALLERGIES: Sulfa antibiotics. FAMILY HISTORY: Positive for coronary artery disease, lung cancer, hypertension, hypothyroidism. SOCIAL HISTORY: The patient lives in [place], [place]. She is . She has 3 children. She quit smoking in 2015. She denies any illicit drug use or alcohol usage. REVIEW OF SYSTEMS: GENERAL: Negative for fatigue, fevers, it is unknown whether she had a weight change. HEENT: Negative for sinus symptoms, ear pain, vision changes, sore throat. RESPIRATORY: Positive for shortness of breath, negative for coughing or wheezing. CARDIAC: Negative for chest pain, palpitations, tachycardia. GI: Negative for nausea, vomiting, diarrhea or constipation. GENITOURINARY: Negative for hematuria, dysuria, polyuria. SKIN: Negative for lesions or rashes. EXTREMITIES: Positive for lower extremity edema. NEUROLOGICAL: Negative for headaches, dizziness or seizures. PHYSICAL EXAMINATION: VITAL SIGNS: Temperature 98, heart rate 72, blood pressure 176/70, respiratory rate 20, oxygen saturation 96% on 2.5 liters nasal cannula. GENERAL: This is a 74 year-old female patient who is sitting up in her hospital bed. She is in no acute distress. HEENT: Normocephalic and atraumatic. Pupils are equal and reactive. Oropharynx is clear. NECK: Supple without mass. There is no discernible jugular venous distention. CHEST: She has a few scattered crackles throughout, although mostly clear to auscultation. There is no rhonchi or wheezing. There is equal rise and fall of the chest with inspiration and expiration. CARDIOVASCULAR: Regular rate and rhythm. ABDOMEN: Soft, nondistended, non-tender. Bowel sounds are positive. BACK: Exam deferred. EXTREMITIES: No cyanosis, clubbing, there is +1 pedal edema bilaterally. Bilateral pedal pulses are palpable at +2. NEUROLOGIC: She is awake, alert, and oriented x3. Cranial nerves II through XII are grossly intact as tested. SKIN: Warm and dry. FOLLOWUP LABORATORY: WBC 11,500, hemoglobin 10.2, hematocrit 30.9. Electrolytes are basically within normal limits. BUN 25, creatinine 1.12 which is close to baseline. Magnesium 2.1, calcium slightly low at 8.2. Liver enzymes are negative. All other labs and films have been reviewed via the EMR. ASSESSMENT: 1. Shortness of breath with an elevated BNP of greater than 1100. She has no history of congestive heart failure, although she does have coronary artery disease. 2. New onset congestive heart failure versus mild fluid overload from recent hospitalization for sepsis for multifocal community acquired pneumonia. 3. Chronic obstructive pulmonary disease without signs or symptoms of exacerbation. 4. Coronary artery disease with having stent placement in the past. 5. Chronic renal insufficiency. Her admitting creatinine is baseline. 6. Recent negative testing for COVID-19. PLAN: The patient has been placed in observation, congestive heart failure guidelines have been initiated. I have given her some IV Lasix and will watch her I&Os closely. She is on a beta yogesh and I will add an russell inhibitor to her medication as her blood pressure is slightly elevated. She will get an echocardiogram tomorrow. Her home medications have been restarted including her azithromycin and Cefdinir as well as a steroid taper that were ordered from her previous admission. She will have Lovenox for DVT prophylaxis. We will hopefully titrate her off the IV Lasix tomorrow and restart her home Lasix. We will continue to follow closely and follow as needed. #[id number] [facility]
[2019-11-23] MEDS ORDERED: SODIUM CHLORIDE 0.9% (FLUSH) 10 ML SYG IV PRN (01:27)
[2019-11-23] MEDS ORDERED: NITROGLYCERIN 0.4 MG 25 EA TAB SL PRN (01:27)
[2019-11-23] MEDS ORDERED: ACETAMINOPHEN 325 MG TAB PO PRN (01:27)
[2019-11-23] MEDS ORDERED: ONDANSETRON INJ 4 MG/2 ML VIAL IV PRN (01:27)
[2019-11-23] MEDS ORDERED: IV SET AND CAP CHANGE INJ INJ SCH (01:30)
[2019-11-23] MEDS ORDERED: GABAPENTIN 100 MG CAP PO PRN (01:37)
[2019-11-23] MEDS ORDERED: ALBUTEROL INHALER 64 PUFF/8GM INH PRN ×2 (01:37→08:00)
[2019-11-23] MEDS ORDERED: ALBUTEROL INH (ER DISPENSE) 1 EA INH INH PRN (01:45)
[2019-11-23] MEDS: ALBUTEROL INHALER 64 PUFF/8GM INH SCH ×4 (08:00→20:15)
[2019-11-23] MEDS: AZITHROMYCIN 250 MG TAB PO SCH (08:22)
[2019-11-23] MEDS: CEFDINIR 300 MG CAP PO SCH ×2 (08:22→20:28)
[2019-11-23] MEDS: CILOSTAZOL 100 MG TAB PO SCH ×2 (08:23→20:27)
[2019-11-23] MEDS: ENOXAPARIN SODIUM 40 MG/0.4 ML SYG SUBCU SCH (08:23)
[2019-11-23] MEDS: FUROSEMIDE INJ 40 MG/4 ML VIAL IV SCH ×2 (08:23→17:55)
[2019-11-23] MEDS: SODIUM CHLORIDE 0.9% (FLUSH) 10 ML SYG IV SCH ×2 (08:23→20:29)
[2019-11-23] MEDS: ATENOLOL 25 MG TAB PO SCH ×2 (08:23→20:28)
[2019-11-23] MEDS: predniSONE 20 MG TAB PO SCH (10:42)
[2019-11-23] MEDS: LISINOPRIL 10 MG TAB PO SCH (10:45)
[2019-11-23] MEDS ORDERED: PANTOPRAZOLE SODIUM TAB 40 MG PO ONE (18:59)
[2019-11-23] MEDS ORDERED: ATORVASTATIN 20 MG TAB PO ONE (18:59)
[2019-11-23] MEDS ORDERED: diphenhydrAMINE HCL 25 MG CAP ONE (18:59)
[2019-11-23] MEDS ORDERED: ASPIRIN (ENTERIC COATED) 81 MG TAB PO ONE (18:59)
[2019-11-23] MEDS ORDERED: CYCLOBENZAPRINE HCL 10 MG TAB ONE (19:00)
[2019-11-23] MEDS ORDERED: PANTOPRAZOLE SODIUM TAB 40 MG PO SCH (21:00)
[2019-11-23] MEDS ORDERED: CYCLOBENZAPRINE HCL 10 MG TAB PO SCH (21:00)
[2019-11-23] MEDS ORDERED: diphenhydrAMINE HCL 25 MG CAP PO SCH (21:00)
[2019-11-23] MEDS ORDERED: ATORVASTATIN 20 MG TAB PO SCH (21:00)
[2019-11-23] MEDS ORDERED: ASPIRIN (ENTERIC COATED) 81 MG TAB PO SCH (21:00)
--- NOTE | 2019-11-24 07:42 | RAD ---
EXAM DESCRIPTION: Chest,1 View CLINICAL HISTORY: chf? COMPARISON: November 22, 2019 FINDINGS: Postoperative changes in the mediastinum. The cardiomediastinal silhouette is otherwise unremarkable. Subtle patchy airspace consolidation in the mid right lung peripherally, stable. The bronchovascular markings are within normal limits. The lungs are hyperinflated. There is no pneumothorax or acute fracture. IMPRESSION: Atelectasis versus resolving pneumonia in the mid right lung, no radiographic evidence of CHF. COPD. Electronically signed by: Mat Sethi MD 11/24/2019 7:40 AM CDT
[2019-11-24] MEDS: ENOXAPARIN SODIUM 40 MG/0.4 ML SYG SUBCU SCH (08:22)
[2019-11-24] MEDS: ATENOLOL 25 MG TAB PO SCH (08:23)
[2019-11-24] MEDS: CILOSTAZOL 100 MG TAB PO SCH (08:23)
[2019-11-24] MEDS: LISINOPRIL 10 MG TAB PO SCH (08:23)
[2019-11-24] MEDS: FUROSEMIDE INJ 40 MG/4 ML VIAL IV SCH (08:23)
[2019-11-24] MEDS: CEFDINIR 300 MG CAP PO SCH (08:23)
[2019-11-24] MEDS: AZITHROMYCIN 250 MG TAB PO SCH (08:23)
[2019-11-24] MEDS: predniSONE 20 MG TAB PO SCH (08:23)
[2019-11-24] MEDS: SODIUM CHLORIDE 0.9% (FLUSH) 10 ML SYG IV SCH (08:24)
[2019-11-24] MEDS: ALBUTEROL INHALER 64 PUFF/8GM INH SCH (08:48)
[2019-11-24] MEDS ORDERED: ALUM & MAG HYDROX-SIMETHICONE 30 ML, LIDOCAINE VISCOUS 2% 15 ML PO ONE ×2 (11:38)
[2019-11-24] MEDS ORDERED: LIDOCAINE HCL 2% (MOUTH-THROAT) 15 ML UD ONE (13:12)
[2019-11-24] MEDS ORDERED: ALUM & MAG HYDROX-SIMETHICONE 30 ML UD ONE (13:12)
[2019-11-24 14:35] VITALS: BP 155/82; TEMP 97.7; O2SAT 98
--- NOTE | 2019-11-25 09:48 | DS ---
SUPERVISING PHYSICIAN: Jerald Rose MD ADMISSION DIAGNOSIS: 1. Shortness of breath with an elevated BNP of greater than 1100. She has no history of congestive heart failure, although she does have coronary artery disease. 2. New onset congestive heart failure versus mild fluid overload from recent hospitalization for sepsis for multifocal community acquired pneumonia. 3. Chronic obstructive pulmonary disease without signs or symptoms of exacerbation. 4. Coronary artery disease with having stent placement in the past. 5. Chronic renal insufficiency. Her admitting creatinine is baseline. 6. Recent negative testing for COVID-19. DISCHARGE DIAGNOSIS: 1. Acute congestive heart failure with exacerbation with elevated BNP with etiology likely diastolic with current echocardiogram pending with patient showing good response to diuresis with exacerbation of chronic obstructive pulmonary disease with recent hospitalization for sepsis with fluids and antibiotic and steroid therapy. 2. Chronic obstructive pulmonary disease with current exacerbation under control and being treated with oral antibiotics with recent hospitalization 24 to 48 hours prior to discharge. 3. Acute exacerbation of chronic obstructive pulmonary disease secondary to #1. 4. Severe coronary artery disease with coronary artery bypass graft times three vessels and stent placement 5. Elevated troponin with an elevated BNP with no actual chest pain, felt to be related to acute fluid overload due to previous treatment for pneumonia and sepsis with patient having no chest pain during hospitalization and at discharge her EKG showed normal sinus rhythm and no acute ST or T-wave changes. REASON FOR HOSPITALIZATION: This is a 74-year-old female patient who was discharged from the hospital earlier on the same day she presented to the Emergency Room. She has a history of a coronary artery bypass graft in the past as well as some chronic obstructive pulmonary disease and on chronic oxygen use. She had been admitted for multifocal pneumonia and actually had been hypotensive during the early part of her stay. She did receive some fluids in the early part of her admission to stabilize her vital signs. She was at high risk for COVID-19 and actually had been tested for that, although her test results were negative. She takes p.r.n. Lasix at home and actually received several doses of Lasix in the hospital just prior to her discharge. She had gone home and that afternoon she became somewhat short of breath and her lower extremities were quite swollen, much more than she typically has. She came to the Emergency Room and did say that her urine output was low since she had been home. Her initial vital signs were a temperature of 97.9 with heart rate of 85, blood pressure 190/106, respiratory rate of 22, oxygen saturation 88% on room air. She does wear oxygen at home and shortly afterward she was placed on 2 liters nasal cannula and her oxygen saturations came up to the mid 90s. Laboratory studies were done and she ad a WBC of 10.4 with a hemoglobin of 10.8 and hematocrit of 32.4. Her electrolytes were basically within normal limits but her BNP was 1,120. Her initial troponin was 0.13 followed by her next troponin that was 0.14. She had no complaints of chest pain. She was given one dose of diuretics in the Emergency Room as well as some Zofran and Nitroglycerin and I was called for admission. LABORATORY STUDIES: White count on discharge was 6,500, hemoglobin 10.7, hematocrit 32.1, platelet count 280,000, differential showed to be without a left shift. Chemistries showed a sodium of 141 with potassium 4.2, BUN 25, creatinine 1.18, magnesium 2.0, troponins were initially elevated at 0.13 and 0.14, although the patient was without any chest pain. MICROBIOLOGY: Sputum cultures were pending. Previous blood cultures at 5 days were showing no growth. RADIOLOGY: She had an echocardiogram that was pending at time of discharge. She also had a chest x-ray and per radiology interpretation showed atelectasis versus resolving pneumonia in the mid right lung and no radiographic evidence of congestive heart failure. EKG both on admission and discharge showed a normal sinus rhythm without any ST or T-wave changes indicating acute ischemia. HOSPITAL COURSE: Ms. Nunez was admitted for increasing shortness of breath. She was found to have elevated BNP and lower extremity edema. She was treated aggressively with diuresis with Lasix and diuresed a little under 5 liters. She had no chest pain, she had resolution of symptoms and was showing to be stable. Discharge vital signs showed she was afebrile at 97.7, pulse 70, blood pressure 155/82, respirations 16, oxygen [id number]% on 2.5 liters nasal cannula as she is chronically oxygen dependent. PHYSICAL ASSESSMENT: GENERAL: The patient was alert and showed to be in no acute distress. CHEST: Lung sounds were essentially clear, just diminished towards the bases bilaterally. HEART: Regular rate and rhythm. ABDOMEN: Soft, nontender, positive bowel sounds. EXTREMITIES: Without any edema. NEUROLOGIC: She was alert and oriented x3. PLAN: The patient had progressed clinically to continue with outpatient treatment and followup with her primary care physician. Ms. Nunez was discharged on 11/24/19 with instructions to followup with Dr. Rose as previously scheduled on 11/27/19 at 11 AM. She was to resume her home medications with the exception of changing her Lasix 20 mg daily p.r.n. to 20 mg daily scheduled along with lisinopril 10 mg daily for treatment of underlying questionable congestive heart failure. Her echocardiogram was pending at time of discharge. She was continued on antibiotics prior to recent hospitalization and treatment for the bilateral pneumonia. She was to continue taking her Lasix daily until she was seen in followup at which time she could possibly go back to p.r.n. based on assessment and echocardiogram. At some point, she will need followup with cardiology given that she did have an elevated troponin and will probably need a stress test but during hospitalization it did not appear that she was having any acute myocardial event, it was more related to acute fluid overload and again, that was probably from pervious hospitalization for sepsis due to the bilateral pneumonia. She was encouraged to wear her oxygen 24/. She was told to return to the Emergency Department if she had any concerning symptoms. Discharge condition was stable and improved. The patient was discharged home. #[id number] MTDD
== END 2019-11-24 14:22 | disposition home or self-care (01) ==
LOC: ER 20:39 → MS 11-23 00:09
PROVIDERS: ADMIT Nurse Practitioner Acute Care; ATTEND Nurse Practitioner Family
DX: I13.0 Hypertensive heart and chronic kidney disease with heart failure and stage 1 through stage 4 chronic kidney disease, or unspecified chronic kidney disease (principal); I50.9 Heart failure, unspecified; J44.1 Chronic obstructive pulmonary disease with (acute) exacerbation; I25.10 Atherosclerotic heart disease of native coronary artery without angina pectoris; R74.8 Abnormal levels of other serum enzymes; N18.9 Chronic kidney disease, unspecified; M81.0 Age-related osteoporosis without current pathological fracture; K21.9 Gastro-esophageal reflux disease without esophagitis; I25.2 Old myocardial infarction; Z95.1 Presence of aortocoronary bypass graft; Z95.5 Presence of coronary angioplasty implant and graft; Z99.81 Dependence on supplemental oxygen; Z79.82 Long term (current) use of aspirin; Z79.899 Other long term (current) drug therapy; Z88.2 Allergy status to sulfonamides; Z87.891 Personal history of nicotine dependence; Z90.49 Acquired absence of other specified parts of digestive tract; Z90.710 Acquired absence of both cervix and uterus; Z82.49 Family history of ischemic heart disease and other diseases of the circulatory system; Z80.1 Family history of malignant neoplasm of trachea, bronchus and lung; Z83.49 Family history of other endocrine, nutritional and metabolic diseases
CPT/HCPCS: 96374; 96375; 96376 ×2; 96372 ×2; Q0144 ×2; Q0163; J1940 ×4; J2405 ×2; J7512 ×2; J1650 ×2; 80048; 80053 ×2; 36415 ×3; 85025 ×3; 83735 ×2; 84484 ×3; 83880; 71045 ×2; 94760 ×4; 94640; 99285; 93306; 93005 ×2; G0378

== ENCOUNTER 2019-12-02 16:18 | Emergency (ER) | payer MEDICARE ==
[2019-12-02 17:03] VITALS: TEMP 98.8
--- NOTE | 2019-12-02 17:04 | ED.PDOC ---
History of Present Illness - General Time Seen by Provider: 12/02/19 16:36 Source: patient, family Exam Limitations: no limitations - History of Present Illness Initial Comments: TEMPORAL JUAREZ, BL HAND TREMOR, AND R STERNAL CRAMPING CHEST PAIN X 1 WEEK. 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 PT WAS IN [facility] FOR PNE AND WAS DC'D TO HOME 1 WK AGO. SHE AND FAMILY STATE SHE STARTED PREDNISONE 9D PT TAPER (FAMILY UNSURE WHY BUT PROBABLY TO OPEN THE AIRWAYS). SHE FEELS HER SX HAVE STARTED SINCE. CURRENTLY ON CEFDINIR PO RX. DENIES H/O STROKE. WHENI MENTION A BOLUS FOR HER HOTN, PT AND FAMILY MENTION SHE WAS "FLUID OVERLOADED" IN HOSPITAL PREVIOUSLY AND REQUEST CAUTION. THUS I WILL ONLY 500 ML BOLUS. Timing/Duration: 1 week Severity: moderate Improving Factors: nothing Worsening Factors: nothing Associated Symptoms: chest pain Allergies/Adverse Reactions: Allergies Sulfa Antibiotics Allergy (Verified 12/02/19 16:59) Unknown Home Medications: Ambulatory Orders Albuterol Inhaler [Ventolin Hfa Inhaler] 1 puff INH QID PRN 12/16/16 Aspirin [Aspirin EC] 81 mg PO BEDTIME 12/16/16 Atenolol [Tenormin] 25 mg PO BID 12/16/16 Atorvastatin Calcium [Lipitor] 40 mg PO BEDTIME 12/16/16 diphenhydrAMINE HCL [Benadryl] 50 mg PO BEDTIME 12/16/16 Cholecalciferol [Vitamin D3] 5,000 unit PO BEDTIME 11/19/19 Cilostazol 100 mg PO BID 11/19/19 Cyclobenzaprine HCl [Cyclobenzaprine Hydrochlo] 10 mg PO BEDTIME 11/19/19 Pantoprazole Sodium 40 mg PO BEDTIME 11/19/19 Potassium Chloride [K-Tab] 8 meq PO PRN PRN 11/19/19 Albuterol Sulfate Nebs [Proventil Nebs] 2.5 mg INH BID PRN 11/23/19 Albuterol Sulfate [Proair Hfa] 2 puff INH Q6H PRN 11/23/19 Azithromycin Tab [Zithromax Tab] 250 mg PO QD #2 tab 11/23/19 Cefdinir 300 mg PO BID #16 capsule 11/23/19 Gabapentin 100 - 300 mg PO TID PRN 11/23/19 Prednisone See Taper PO DAILY #30 jerel 11/23/19 Furosemide 20 mg PO DAILY #0 11/24/19 Lisinopril [Prinivil] 10 mg PO DAILY #30 tab 11/24/19 Review of Systems - Review of Systems Constitutional: Denies: chills, fever EENTM: Denies: ear pain, nose congestion Respiratory: Denies: cough, short of breath Cardiology: States: chest pain. Denies: palpitations Gastrointestinal/Abdominal: Denies: abdominal pain, diarrhea, nausea, vomiting Genitourinary: Denies: dysuria, frequency Musculoskeletal: Denies: back pain, neck pain Skin: Denies: lesions, rash Neurological: States: headache - BL TEMPORAL, tremors. Denies: numbness, paresthesia, weakness Endocrine: Denies: intolerance to cold, intolerance to heat Hematologic/Lymphatic: Denies: easy bleeding, easy bruising All other Systems: Reviewed and Negative Past Medical History (General) - Patient Medical History Hx Seizures: No Hx Stroke: No Hx Dementia: No Hx Asthma: No Hx of COPD: Yes Hx Cardiac Disorders: Yes - AL x's 2, stents x's 3, CABG Hx Congestive Heart Failure: No Hx Pacemaker: No Hx Hypertension: Yes Hx Diabetes: No Hx Gastroesophageal Reflux: Yes Hx Renal Disease: No Hx Cancer: No Hx Hepatitis C: No Hx MRSA: No - Vaccination History Hx Tetanus, Diphtheria Vaccination: Yes Hx Influenza Vaccination: No Hx Pneumococcal Vaccination: Yes - Social History Hx Tobacco Use: Yes Hx Alcohol Use: No Hx Substance Use: No Hx Physical Abuse: No Hx Emotional Abuse: No Family Medical History - Family History Father Living Status: Hx Family Asthma: No Hx Family Congestive Heart Failure: No Hx Family Hypertension: Yes Hx Family Stroke: No Hx Cardiac Disease: Yes Hx Family Diabetes: No Hx Family Cancer: No Mother Living Status: Hx Family Asthma: No Hx Family Congestive Heart Failure: No Hx Family Hypertension: Yes Hx Family Stroke: No Hx Cardiac Disease: Yes Hx Family Diabetes: No Hx Family Cancer: Yes - lung cancer Physical Exam - Physical Exam General Appearance: Alert, Well Groomed Eye Exam: bilateral normal Ears, Nose, Throat: hearing grossly normal, normal ENT inspection, normal pharynx Neck: non-tender, full range of motion, supple Respiratory: chest non-tender, lungs clear, normal breath sounds, no respiratory distress, no accessory muscle use Cardiovascular/Chest: normal peripheral pulses, regular rate, rhythm, no JVD, no murmur Peripheral Pulses: radial,right: 1+, radial,left: 1+ Gastrointestinal/Abdominal: non tender, soft Back Exam: normal inspection, no CVA tenderness Extremity: normal range of motion, non-tender, no pedal edema, no calf tenderness, other - BL RESTING AND INTENTION TREMOR. Neurologic: gold leaf gilder II-XII nml as tested, no motor/sensory deficits, alert, normal mood/affect, oriented x 3 Skin Exam: normal color, warm/dry Lymphatic: no adenopathy Progress - Results/Orders Results/Orders: PT FEELS 100% BETTER AFTER 500 ML BOLUS. BP INCREASED TO 105 SYSTOLIC, WHICH PT STATES IS NL FOR HER. HER JUAREZ, TREMOR, AND STUTTERING HAVE RESOLVED PER REPEAT P.E. W/U NEG FOR CONCERNS: CT NEG FOR ACUTE STROKE. CARD ENZ NEG. EKG NSR. CXR STABLE WITH KNOWN PNE. CBC ELEV WBC WITH KNWON PNE. INSTRUCTED TO FINISH THE PO ABX. DEHYDRATION AND HYPOTENSION - I HAD IN DEPTH D/W PT AND FAMILY ABOUT IMPORTANCE OF DRINKING 64 OZ WATER PER DAY. PT STATES SHE RARELY DRINKS ANY WATER OR FLUIDS. CR ELEV TO 2.1, UP FROM AROUND 1 AT BASELINE. GAVE 500 ML BOLUS FOR H/O CHF. Departure - Departure Clinical Impression: Dehydration, Tremor, Stuttering Hypotension Qualifiers: Hypotension type: hypotension due to hypovolemia Qualified Code(s): I95.89 - Other hypotension; E86.1 - Hypovolemia Acute renal failure (ARF) Qualifiers: Acute renal failure type: unspecified Qualified Code(s): N17.9 - Acute kidney f ailure, unspecified Headache Qualifiers: Headache type: unspecified Headache chronicity pattern: acute headache Intractability: not intractable Qualified Code(s): R51 - Headache Disposition: Discharge to Home or Self Care Condition: Good Diet: resume usual diet Activity: increase activity as tolerated Referrals: Jerald Rose MD [Primary Care Provider] - 1 Week Home Medications: Ambulatory Orders Albuterol Inhaler [Ventolin Hfa Inhaler] 1 puff INH QID PRN 12/16/16 Aspirin [Aspirin EC] 81 mg PO BEDTIME 12/16/16 Atenolol [Tenormin] 25 mg PO BID 12/16/16 Atorvastatin Calcium [Lipitor] 40 mg PO BEDTIME 12/16/16 diphenhydrAMINE HCL [Benadryl] 50 mg PO BEDTIME 12/16/16 Cholecalciferol [Vitamin D3] 5,000 unit PO BEDTIME 11/19/19 Cilostazol 100 mg PO BID 11/19/19 Cyclobenzaprine HCl [Cyclobenzaprine Hydrochlo] 10 mg PO BEDTIME 11/19/19 Pantoprazole Sodium 40 mg PO BEDTIME 11/19/19 Potassium Chloride [K-Tab] 8 meq PO PRN PRN 11/19/19 Albuterol Sulfate Nebs [Proventil Nebs] 2.5 mg INH BID PRN 11/23/19 Albuterol Sulfate [Proair Hfa] 2 puff INH Q6H PRN 11/23/19 Azithromycin Tab [Zithromax Tab] 250 mg PO QD #2 tab 11/23/19 Cefdinir 300 mg PO BID #16 capsule 11/23/19 Gabapentin 100 - 300 mg PO TID PRN 11/23/19 Prednisone See Taper PO DAILY #30 jerel 11/23/19 Furosemide 20 mg PO DAILY #0 11/24/19 Lisinopril [Prinivil] 10 mg PO DAILY #30 tab 11/24/19 Additional Instructions: Please start drinking 64 ounces of water per day to help prevent damage to the kidneys.
[2019-12-02] MEDS: SODIUM CHLORIDE 0.9% 500ML 500 ML IVS ONE (17:35)
--- NOTE | 2019-12-02 17:42 | CT ---
EXAM: Head CLINICAL INDICATION: 74-year-old female with temporal headache and tremor for one week with stuttering for two hours. COMPARISON: None. TECHNIQUE: CT brain without contrast. This exam was performed according to our departmental dose optimization program which includes use of automated exposure control, adjustment of the mA and/or kV according to patient size and/or use of iterative reconstruction technique. FINDINGS: Streak artifact limits evaluation through the skull base and posterior fossa. Multifocal regions of patchy hypoattenuation are present in a subcortical and periventricular deep white matter distribution, nonspecific; however, most likely represent small vessel ischemic disease, age indeterminate. The ventricles, sulci, and cisterns are symmetric and unremarkable. The rueda-white matter differentiation is preserved. There is no mass effect, midline shift, intra- or extra-axial fluid collection/acute hemorrhage. The osseous structures are unremarkable. The paranasal sinuses and mastoid air cells are clear. IMPRESSION: 1. No acute intracranial abnormalities. Nonspecific white matter change most likely small vessel ischemic disease, age indeterminate. 2. CT is insensitive for early evaluation of acute stroke. If there is clinical concern for acute ischemia, an MRI may be considered. Electronically signed by: Inés Beth MD 12/02/2019 5:40 PM CDT
--- NOTE | 2019-12-02 17:43 | RAD ---
EXAM: Chest,1 View CLINICAL INDICATION: 74-year-old female with temporal headache and tremor for one week. TECHNIQUE: Single view, AP portable chest was obtained. COMPARISON: 11/24/2019. FINDINGS: Unremarkable cardiac and mediastinal silhouette. Heart size is normal. Tortuous atherosclerotic thoracic aorta. Median sternotomy wires. Stable appearance of patchy airspace opacification at the level of the lateral RIGHT upper lobe. Lungs are otherwise clear without focal opacity, pneumothorax or pleural effusions. RIGHT upper lobe surgical clips. Slight flattening of the diaphragm with large lung volumes raises the possibility of chronic obstructive pulmonary disease. The visualized bones are within normal limits. IMPRESSION: Stable appearance of patchy airspace opacification at the level of the lateral RIGHT upper lobe raising the possibility of subsegmental atelectasis, scarring or consolidation/infectious process. Please correlate with patient clinical findings and follow-up for resolution. Electronically signed by: Inés Beth MD 12/02/2019 5:42 PM CDT
[2019-12-02 18:46] VITALS: BP 109/55; O2SAT 90
== END 2019-12-02 19:06 | disposition home or self-care (01) ==
LOC: ER 16:18
DX: E86.0 Dehydration (principal); I95.89 Other hypotension; R25.1 Tremor, unspecified; N17.9 Acute kidney failure, unspecified; R51 Headache; I25.2 Old myocardial infarction; Z95.1 Presence of aortocoronary bypass graft; I10 Essential (primary) hypertension; F17.200 Nicotine dependence, unspecified, uncomplicated
CPT/HCPCS: 70450; 71045; 80053; 82550; 82553; 84484; 85025; 93005; J7040

== ENCOUNTER → 2019-12-04 | Outpatient (CLI) | payer MEDICARE ==
--- NOTE | 2019-12-04 11:31 | MRI ---
EXAM DESCRIPTION: Brain w/o Contrast: MRI. CLINICAL HISTORY: CEREBRAL INFARCTION COMPARISON: None. TECHNIQUE: Multiplanar, high-field MRI unit, multiple diffusion sequences, multiple conventional sequences without contrast. FINDINGS: Multiple bilateral regions of confluent hyperintense FLAIR and T2-weighted signal in the periventricular white matter of all 3 lobes involving the kaplan radiata and centrum semiovale. Also similar hyperintense signal is multifocal in the subcortical white matter, from the ventricles up to the vertex bilaterally. Less involvement of the temporal lobes. No hemorrhage, no cerebral edema, no midline shift.. Normal signal in the bilateral basal ganglia. Normal signal in the brainstem and cerebellar hemispheres. No hemorrhage, no cerebral edema, no mass-effect. Concordance of the diffusion and non-diffusion sequences with no diffusion restriction. Cortical sulci, ventricles, and other CSF spaces, and the subdural spaces are normally configured for patient's age. No effacement or displacement. No midline shift. No extra-axial hemorrhage. Normal flow signal void in the major vessels of the [place], and the venous sinuses. Left vertebral artery is dominant over the right IACs are symmetric bilaterally. Fluid signal involving most of the bilateral mastoid air cells. No mass effect in the bilateral cerebellopontine angles. Pituitary gland occupies most of the sella. Base of the cerebellar tonsils is at the level of the foramen magnum. Mucoperiosteal thickening in the bilateral paranasal sinuses without air-fluid levels thickening of the bilateral inner tables of the frontal bones. The bony calvarium is intact. IMPRESSION: 1. Diffuse symmetric white matter involvement in the periventricular white matter, centrum semiovale, and in the subcortical white matter consistent with cerebral microvascular disease and/or age related process. No hemorrhage, no mass effect, no midline shift. 2. Normal noncontrast MRI diffusion study with no evidence of acute or subacute significant ischemia or infarction. 3. Bilateral chronic mastoiditis. Chronic paranasal sinusitis. Hyperostosis frontalis interna is not uncommon in elderly females. Electronically signed by: Musa Garcia MD 12/04/2019 11:30 AM CDT
== END ==
LOC: MRI 10:03
PROVIDERS: ATTEND Family Medicine
DX: I63.9 Cerebral infarction, unspecified (principal); G93.9 Disorder of brain, unspecified; H70.93 Unspecified mastoiditis, bilateral; M85.2 Hyperostosis of skull; J32.9 Chronic sinusitis, unspecified

== ENCOUNTER 2019-12-09 17:16 | Inpatient (IN) | payer MEDICARE ==
[2019-12-09] MEDS ORDERED: methylPREDNISolone SODIUM SUC 125 MG/2 ML VIAL IV ONE (17:40)
[2019-12-09] MEDS ORDERED: cefTRIAXone SODIUM 1 GM in SODIUM CHL 0.9% 50ML MIN-BAG+ 50 ML IVPB ONE (17:40)
--- NOTE | 2019-12-09 17:45 | ED.PDOC ---
History of Present Illness - General Chief Complaint: Respiratory Problem Stated Complaint: low BP, SOB Time Seen by Provider: 12/09/19 17:27 Additional Information: 74-year-old female who presents to the ED with chief complaint of shortness of breath. Patient indicates that she has chronic baseline shortness of breath due to her COPD but her symptoms have become considerably worse today. Pt uses home oxygen but only at night. Typically her O2 sats are 94% on 2 L. Patient indicates that she has developed an occasional cough along with her shortness of breath. Patient denies chest pain but says she has "chest heaviness". Patient denies nausea, vomiting, fever, chills. Patient indicates that she had similar symptoms last week and was admitted for pneumonia. Patient indicates she has a history of COPD and that she quit smoking 5 years ago. Patient has had a CABG and has stents in place. She is not on blood thinners but takes an aspirin only. Patient indicates also has CHF and takes Lasix 10 mg daily. - History of Present Illness Allergies/Adverse Reactions: Allergies Sulfa Antibiotics Allergy (Verified 12/02/19 16:59) Unknown Home Medications: Ambulatory Orders Albuterol Inhaler [Ventolin Hfa Inhaler] 1 puff INH QID PRN 12/16/16 Aspirin [Aspirin EC] 81 mg PO BEDTIME 12/16/16 Atenolol [Tenormin] 25 mg PO BID 12/16/16 Atorvastatin Calcium [Lipitor] 40 mg PO BEDTIME 12/16/16 diphenhydrAMINE HCL [Benadryl] 50 mg PO BEDTIME 12/16/16 Cholecalciferol [Vitamin D3] 5,000 unit PO BEDTIME 11/19/19 Cilostazol 100 mg PO BID 11/19/19 Pantoprazole Sodium 40 mg PO BEDTIME 11/19/19 Potassium Chloride [K-Tab] 8 meq PO PRN PRN 11/19/19 Albuterol Sulfate Nebs [Proventil Nebs] 2.5 mg INH BID PRN 11/23/19 Albuterol Sulfate [Proair Hfa] 2 puff INH Q6H PRN 11/23/19 Gabapentin 300 mg PO TID PRN 11/23/19 Prednisone See Taper PO DAILY #30 jerel 11/23/19 Furosemide 20 mg PO DAILY #0 11/24/19 Lisinopril [Prinivil] 10 mg PO DAILY #30 tab 11/24/19 Baclofen 10 mg PO BEDTIME 12/09/19 Meloxicam 7.5 mg PO BID 12/09/19 Nitroglycerin 0.4 mg Tab [Nitrostat] 0 ea SL .Q5M PRN 12/09/19 Review of Systems - Review of Systems Constitutional: Denies: chills, fever Respiratory: States: see HPI, cough, short of breath, wheezing Cardiology: Denies: chest pain, palpitations Gastrointestinal/Abdominal: States: no symptoms reported. Denies: abdominal pain, nausea, vomiting Genitourinary: Denies: dysuria Musculoskeletal: States: no symptoms reported Skin: Denies: rash Neurological: States: no symptoms reported All other Systems: Reviewed and Negative Past Medical History (General) - Patient Medical History Hx Seizures: No Hx Stroke: No Hx Dementia: No Hx Asthma: No Hx of COPD: Yes Hx Cardiac Disorders: Yes - [place] x's 2, stents x's 3, CABG Hx Congestive Heart Failure: No Hx Pacemaker: No Hx Hypertension: Yes Hx Diabetes: No Hx Gastroesophageal Reflux: Yes Hx Renal Disease: No Hx Cancer: No Hx Hepatitis C: No Hx MRSA: No - Vaccination History Hx Tetanus, Diphtheria Vaccination: Yes Hx Influenza Vaccination: No Hx Pneumococcal Vaccination: Yes - Social History Hx Tobacco Use: Yes Hx Alcohol Use: No Hx Substance Use: No Hx Substance Use Treatment: No Hx Depression: No Hx Physical Abuse: No Hx Emotional Abuse: No - Female History Patient : No Family Medical History - Family History Father Living Status: Hx Family Asthma: No Hx Family Congestive Heart Failure: No Hx Family Hypertension: Yes Hx Family Stroke: No Hx Cardiac Disease: Yes Hx Family Diabetes: No Hx Family Cancer: No Mother Living Status: Hx Family Asthma: No Hx Family Congestive Heart Failure: No Hx Family Hypertension: Yes Hx Family Stroke: No Hx Cardiac Disease: Yes Hx Family Diabetes: No Hx Family Cancer: Yes - lung cancer Physical Exam - Physical Exam General Appearance: Alert, Frail, Obvious distress - mild, Ill Appearing Eyes, Ears, Nose, Throat Exam: normal ENT inspection Neck: non-tender, full range of motion, supple, normal inspection Respiratory: no accessory muscle use, respiratory distress - mild, rales, rhonchi Cardiovascular/Chest: normal peripheral pulses, regular rate, rhythm, no JVD, no murmur Gastrointestinal/Abdominal: normal bowel sounds, non tender, soft Extremity: normal range of motion, non-tender, normal inspection, pedal edema - 1+ Neurologic: no motor/sensory deficits, alert, normal mood/affect Skin Exam: normal color, warm/dry Progress - Progress Progress: 12/09/19 17:48 Differential diagnosis includes but is not limited to pneumonia, CHF, COPD, ACS 12/09/19 17:48 EKG: Sinus tachycardia, rate 104, normal axis, normal QRS, normal ST segments, normal T waves. EKG read by Travis Denny MD 12/09/19 20:06 Patient is feeling much better at this time status post respiratory treatment, rocephin and steroids. Patient's labs are baseline for her and her BNP is nl. Her chest x-ray is stable and shows a known right upper lobe infiltrate versus nodule. Patient is breathing more easily at this time but after breathing treatments her wheezes are more pronounced. O2 sats on nasal cannula oxygen are in the low 90s and patient is able to hold a conversation now. Patient is stable, will admit for medical management with IV fluids, steroids and nebulizer treatments for COPD exacerbation. I have spoken with BOOKER Kraus, who accepts patient for admission. 12/09/19 20:12 - Results/Orders Results/Orders: 12/09/19 17:35 IV:Start .ONCE ABG [Arterial Blood Gas] Stat 12/09/19 17:37 EKG Assessment ONCE 12/09/19 17:45 EKG .ONCE 12/09/19 18:00 Albuterol Inhaler [Ventolin Hfa Inhaler] 2 puff INH RTQ4 12/09/19 19:05 BLOOD CULTURE Stat Laboratory Results - last 24 hr 12/09/19 12/09/19 12/09/19 17:55 17:55 17:55 WBC 11.6 H RBC 3.71 L Hgb 10.4 L Hct 31.2 L MCV 84.1 MCH 28.1 MCHC 33.4 RDW 15.3 H Plt Count 396 MPV 7.3 L Absolute Neuts (auto) 7.90 H Absolute Lymphs (auto) 2.70 Absolute Monos (auto) 0.70 Absolute Eos (auto) 0.20 Absolute Basos (auto) 0.10 Neutrophils % 68.0 Lymphocytes % 23.2 Monocytes % 6.1 Eosinophils % 2.0 Basophils % 0.7 PT 9.3 INR < 1.00 Sodium 138 Potassium 4.3 Chloride 102 Carbon Dioxide 28 Anion Gap 12.3 BUN 19 H Creatinine 1.96 H BUN/Creatinine Ratio 9.7 L Random Glucose 145 H Serum Osmolality 280.5 Lactic Acid Calcium 8.4 Total Bilirubin 0.4 AST 24 ALT 19 Alkaline Phosphatase 60 Troponin I B-Natriuretic Peptide 69.2 Serum Total Protein 6.5 Albumin 3.4 Globulin 3.1 Albumin/Globulin Ratio 1.1 12/09/19 12/09/19 17:55 17:55 WBC RBC Hgb Hct MCV MCH MCHC RDW Plt Count MPV Absolute Neuts (auto) Absolute Lymphs (auto) Absolute Monos (auto) Absolute Eos (auto) Absolute Basos (auto) Neutrophils % Lymphocytes % Monocytes % Eosinophils % Basophils % PT INR Sodium Potassium Chloride Carbon Dioxide Anion Gap BUN Creatinine BUN/Creatinine Ratio Random Glucose Serum Osmolality Lactic Acid 1.6 Calcium Total Bilirubin AST ALT Alkaline Phosphatase Troponin I < 0.02 B-Natriuretic Peptide Serum Total Protein Albumin Globulin Albumin/Globulin Ratio Departure - Departure Clinical Impression: COPD exacerbation Time of Disposition: 20:10 Disposition: Admit Patient Condition: Fair Home Medications: Ambulatory Orders Albuterol Inhaler [Ventolin Hfa Inhaler] 1 puff INH QID PRN 12/16/16 Aspirin [Aspirin EC] 81 mg PO BEDTIME 12/16/16 Atenolol [Tenormin] 25 mg PO BID 12/16/16 Atorvastatin Calcium [Lipitor] 40 mg PO BEDTIME 12/16/16 diphenhydrAMINE HCL [Benadryl] 50 mg PO BEDTIME 12/16/16 Cholecalciferol [Vitamin D3] 5,000 unit PO BEDTIME 11/19/19 Cilostazol 100 mg PO BID 11/19/19 Pantoprazole Sodium 40 mg PO BEDTIME 11/19/19 Potassium Chloride [K-Tab] 8 meq PO PRN PRN 11/19/19 Albuterol Sulfate Nebs [Proventil Nebs] 2.5 mg INH BID PRN 11/23/19 Albuterol Sulfate [Proair Hfa] 2 puff INH Q6H PRN 11/23/19 Gabapentin 300 mg PO TID PRN 11/23/19 Prednisone See Taper PO DAILY #30 jerel 03/29/20 Furosemide 20 mg PO DAILY #0 11/24/19 Lisinopril [Prinivil] 10 mg PO DAILY #30 tab 11/24/19 Baclofen 10 mg PO BEDTIME 12/09/19 Meloxicam 7.5 mg PO BID 12/09/19 Nitroglycerin 0.4 mg Tab [Nitrostat] 0 ea SL .Q5M PRN 12/09/19 Decision To Admit - Decistion To Admit Decision to Admit Date: 12/09/19 Decision to Admit Time: 20:10
[2019-12-09] MEDS ORDERED: cefTRIAXone SODIUM 1 GM VIAL ONE (17:51)
[2019-12-09] MEDS ORDERED: SODIUM CHL 0.9% 50ML MIN-BAG+ 50 ML IVPB ONE (17:51)
[2019-12-09] MEDS: ALBUTEROL INHALER 64 PUFF/8GM INH SCH ×2 (18:10→18:12)
--- NOTE | 2019-12-09 18:27 | RAD ---
EXAM DESCRIPTION: XR Chest, 1 View CLINICAL HISTORY: 74 years Female SOB TECHNIQUE: One view of the chest. COMPARISON: 12/02/2019 FINDINGS: Prior median sternotomy and CABG. Again seen is hyperinflation of the lungs with biapical hyperlucency, consistent with emphysema. Stable small infiltrate vs. nodule in the lateral right upper lobe. No new airspace infiltrate. No pleural effusion or pneumothorax. Stable cardiomediastinal silhouette. No acute osseous abnormalities. IMPRESSION: No acute cardiopulmonary abnormalities. Stable emphysema. Stable infiltrate vs. nodule in the lateral right upper lobe. Electronically signed by: Tracy Lanier MD 12/09/2019 6:25 PM CDT
[2019-12-09] MEDS ORDERED: ALBUTEROL SULFATE 2.5 MG/3 ML VIAL NEB ONE (19:32)
[2019-12-09] MEDS ORDERED: IPRATROPIUM BROMIDE NEBS 0.5 MG/2.5 ML VIAL NEB ONE (19:33)
--- NOTE | 2019-12-09 20:47 | HP ---
SUPERVISING PHYSICIAN: Mc Cheatham MD CHIEF COMPLAINT: Shortness of breath and low blood pressure. HISTORY OF PRESENT ILLNESS: This is a 74-year-old female patient who presented to the Emergency Room after several hours of shortness of breath that came on quite suddenly. She does have a long history of COPD and quit smoking approximately 5 years ago. She had actually been in the hospital twice at the end of October, once for exacerbation of congestive heart failure and the other time for right upper lobe pneumonia and had been doing quite well. She had been taking her medications as ordered. She actually had seen Dr. Rose, her primary care physician, several times over the last couple of weeks. She was feeling much better and decided to clean out a craft room that had lots of storage in it. She did feel she over exerted herself, but the room was not significantly dirty other than just dust. She also was concerned that shortly after the weather changed, her breathing worsened after the front came through. She became so short of breath that she came to the Emergency Room. She is on home oxygen and usually just utilizes O2 at night. In the Emergency Room, her vital signs showed temperature 96.4, heart rate 85, blood pressure 103/55, respiratory rate 22, O2 saturation 84% on room air. She was short of breath with labored breathing. She was tachypneic. Laboratory studies were done and her WBCs were 11,600 with hemoglobin 10.4, hematocrit 31.2. Blood gas showed pCO2 44, pO2 63, bicarb 26.9, O2 sat on oxygen 91.1 with pH 7.39. Her electrolytes were basically within normal limits. BUN 19, creatinine 1.96. Her baseline creatinine is about 1.1. Glucose high at 145, lactic acid 1.6. Liver enzymes were within normal limits. Blood cultures were drawn. A chest x-ray showed no acute cardiopulmonary abnormalities with stable emphysema, stable infiltrate versus nodule in the lateral right upper lobe. It is to be noted that she also has some mild speech impairment that has been going on for several weeks. She says her stuttering worsens when her blood pressure gets low. She is seeing her primary care physician, Dr. Rose, and had a workup that included an MRI of the brain. She received several breathing treatments in the Emergency Room as well as some Rocephin in some IV prednisone. She was admitted to the hospital in stable condition. PAST MEDICAL HISTORY: 1. Chronic obstructive pulmonary disease. 2. Osteoporosis. 3. Coronary artery disease with CABG times 3 in 2000 and stent placement in 2016. 4. Mild diastolic congestive heart failure with an ejection fraction of 55-60% per echocardiogram on 11/14/19. 5. Renal insufficiency with a baseline creatinine of approximately 1.1. PAST SURGICAL HISTORY: 1. Appendectomy. 2. Coronary artery bypass graft times 3 in 2010. 3. Cholecystectomy. 4. Hysterectomy. 5. Multiple neck surgeries. 6. Cardiac stent placement in 2016. HOME MEDICATIONS: Per the EMR and awaiting verification. ALLERGIES: SULFA ANTIBIOTICS. FAMILY HISTORY: Positive for lung cancer as well as several other cancers subacromial coronary artery disease, hypertension, and hypothyroidism. SOCIAL HISTORY: The patient lives in [place]. She is . Her brother lives with her who up until recently smoked in the house, but she has asked him to smoke outside, which he has for a week or so. She has three children. She quit smoking approximately 5 years ago and denies any ETOH or illicit drug use. REVIEW OF SYSTEMS: GENERAL: Positive for fatigue and low grade fever. Negative for weight changes. HEENT: Negative for sinus symptoms, ear pain, vision changes or sore throat. RESPIRATORY: Positive for shortness of breath and wheezing as well as a mild dry cough. CARDIAC: Negative for chest pain, palpitations or tachycardia. GASTROINTESTINAL: Negative for nausea, vomiting, diarrhea, constipation. GENITOURINARY: Negative for hematuria, dysuria or polyuria. SKIN: Negative for lesions or rashes. EXTREMITIES: Negative for lower extremity edema. NEUROLOGIC: Positive for stuttering and slurring of speech that comes and goes. Negative for headache, dizziness or seizures. PHYSICAL EXAMINATION: VITAL SIGNS: Temperature 98. Heart rate 71. Blood pressure 118/94. Respiratory rate 22 to 24. O2 saturation 95% on 2 liters nasal cannula. GENERAL: This is a 74-year-old female patient who is lying in her hospital bed. She is in mild respiratory distress. HEENT: Normocephalic, atraumatic. Pupils are equal and reactive. Oropharynx is clear. NECK: Supple without mass. There is no discernible jugular venous distention. RESPIRATORY: She has expiratory wheezing scattered throughout all lung rosas with a few scattered rhonchi. She is visibly tachypneic and she can only speak in 2 to 3 word phrases. She does have some mild increased work of breathing. CHEST: There is equal rise and fall of the chest with inspiration and expiration. CARDIOVASCULAR: Regular rate and rhythm. GASTROINTESTINAL: Abdomen is soft, nondistended, nontender. Bowel sounds are positive. EXTREMITIES: No cyanosis, clubbing or edema. NEUROLOGIC: Awake, alert and oriented times three. She occasionally has several words that she has trouble and she stutters somewhat. Otherwise, cranial nerves II-XII are grossly intact as tested. SKIN: Warm and dry. LABORATORY: Labs and films are as per history of present illness. IMPRESSION: 1. Chronic obstructive pulmonary disease with acute exacerbation. 2. Hypoxia per ABG results with pO2 67. Her admitting O2 saturation was 84%. 3. Stable right upper lobe pneumonia. She was treated about 2 to 3 weeks ago with azithromycin and Rocephin. 4. Mild diastolic dysfunction congestive heart failure with 55-60% ejection fraction per echocardiogram 11/14/19. 5. Coronary artery disease with stents and previous three-vessel coronary artery bypass graft. 6. Acute on chronic renal insufficiency. Her baseline creatinine is 1.1. Her admitting creatinine is 1.96. 7. Partial solid pulmonary nodule with ground-glass opacities per CT scan on 09/28/19. Recommended followup is in 6 months. PLAN: The patient has been admitted to the hospital. I did request a COVID-19 testing to be done in the Emergency Room and it was not done, so I have ordered that as she is at high risk for COVID-19 due to her age and respiratory symptoms. I have started her on aggressive pulmonary hygiene including an albuterol inhaler both p.r.n. and scheduled. I did put the patient on Zosyn as she had recently been treated with azithromycin and Rocephin. Her home medications have been restarted. I will followup with Dr. Rose in regard to the stuttering issues and her previous workup at his office. She has been given judicious fluids and we will recheck her lab in the morning including her kidney function. I will also make sure she has a followup with her bark scaler, Dr. Braxton, in regard to her CT scan from 09/28/19. I have consulted [facility] [facility] and most likely she will need home health on discharge due to her frequent hospitalizations. I do know she had extensive teaching over the last month or so during her hospital stays as well as telephone followup. She would benefit from a home health that had pulmonary rehab. Otherwise, we will continue to monitor the patient closely and follow as needed. #[id number] [facility]
[2019-12-09] MEDS ORDERED: SODIUM CHLORIDE 0.9% (FLUSH) 10 ML SYG IV PRN (21:01)
[2019-12-09] MEDS ORDERED: PIPERACILLIN/TAZOBACTAM 3.375 GM in SODIUM CHLORIDE 0.9% 100ML 100 ML IVPB ONE (21:18)
[2019-12-09] MEDS ORDERED: ALBUTEROL INHALER 64 PUFF/8GM INH PRN (21:25)
[2019-12-09] MEDS ORDERED: GABAPENTIN 300 MG CAP ONE (22:21)
[2019-12-09] MEDS ORDERED: PIPERACILLIN/TAZOBACTAM 3.375 GM VIAL IVPB ONE ×2 (22:22→22:25)
[2019-12-09] MEDS ORDERED: SODIUM CHL 0.9% 100ML MINI-BAG 100 ML IVPB ONE ×2 (22:22→22:25)
[2019-12-09] MEDS: BACLOFEN 10 MG TAB PO SCH (22:44)
[2019-12-09] MEDS: CILOSTAZOL 100 MG TAB PO SCH (22:44)
[2019-12-09] MEDS: diphenhydrAMINE HCL 25 MG CAP PO SCH (22:44)
[2019-12-09] MEDS: ENOXAPARIN SODIUM 30 MG/0.3 ML SYG SUBCU SCH (22:44)
[2019-12-09] MEDS: GABAPENTIN 100 MG CAP PO SCH (22:44)
[2019-12-09] MEDS: IV SET AND CAP CHANGE INJ INJ SCH (22:45)
[2019-12-10] MEDS: methylPREDNISolone SODIUM SUC 40 MG/ML VIAL IV SCH ×4 (00:15→17:44)
[2019-12-10] MEDS: ATENOLOL 25 MG TAB PO SCH ×3 (00:16→21:25)
[2019-12-10] MEDS ORDERED: PIPERACILLIN/TAZOBACTAM 3.375 GM in SODIUM CHLORIDE 0.9% 100ML 100 ML IVPB SCH (01:00)
[2019-12-10] MEDS: PIPERACILLIN/TAZOBACTAM 3.375 GM in SODIUM CHLORIDE 0.9% 100ML 100 ML IVPB SCH ×3 (02:12→17:44)
[2019-12-10] MEDS: PANTOPRAZOLE SODIUM IV 40 MG VIAL IV SCH (06:02)
[2019-12-10] MEDS: ACETAMINOPHEN 325 MG TAB PO PRN (06:44)
[2019-12-10] MEDS ORDERED: FUROSEMIDE 40 MG TAB ONE (07:10)
[2019-12-10] MEDS ORDERED: GABAPENTIN 300 MG CAP ONE ×2 (07:10→14:44)
[2019-12-10] MEDS ORDERED: PIPERACILLIN/TAZOBACTAM 3.375 GM VIAL IVPB ONE ×3 (07:11→23:53)
[2019-12-10] MEDS ORDERED: SODIUM CHLORIDE 0.9% 100ML 100 ML IVPB ONE ×3 (07:11→23:54)
--- NOTE | 2019-12-10 07:14 | RAD ---
EXAM DESCRIPTION: Chest,1 View CLINICAL HISTORY: 74 years Female, Pneumonia COMPARISON: December 09, 2019, December 02, 2019, November 24, 2019 TECHNIQUE: AP portable chest. FINDINGS: Lung volumes are slightly less prominent than seen on previous day's study with stable by apical hyperlucency and coarsened interstitial markings in both lung bases consistent with emphysema and an element of basilar fibrosis. Ill-defined minimal patchy infiltrate or vague nodularity in the peripheral right upper lung field persists and is little changed from prior studies. Normal-sized heart and vascularity with previous sternotomy and bypass surgery. New areas of consolidation/infiltrate not apparent and no pleural effusions noted. IMPRESSION: 1. Persistent ill-defined density peripherally in the right upper lobe, little changed and consistent with a small area of atelectasis/consolidation or an ill-defined area of vague nodularity. Continued follow-up recommended and if this does not resolve in a reasonable period of time CT examination of the chest should be considered Electronically signed by: Jerald Rodriguez MD 12/10/2019 7:13 AM CDT
[2019-12-10] MEDS ORDERED: NON-FORMULARY MEDICATION 1 EA MIS (Furosemide [Furosemide] 20 MG) PO SCH (09:00)
[2019-12-10] MEDS: CILOSTAZOL 100 MG TAB PO SCH ×2 (09:24→21:25)
[2019-12-10] MEDS: FUROSEMIDE 40 MG TAB PO SCH (09:24)
[2019-12-10] MEDS: LISINOPRIL 10 MG TAB PO SCH (09:24)
[2019-12-10] MEDS: GABAPENTIN 100 MG CAP PO SCH ×2 (09:24→14:44)
[2019-12-10] MEDS: SODIUM CHLORIDE 0.9% (FLUSH) 10 ML SYG IV SCH ×2 (09:25→21:26)
[2019-12-10] MEDS: ALBUTEROL INHALER 64 PUFF/8GM INH SCH ×4 (10:30→20:00)
[2019-12-10] MEDS ORDERED: NON-FORMULARY MEDICATION 1 EA MIS (Atorvastatin Calcium [Lipitor] 40 MG) PO SCH (21:00)
[2019-12-10] MEDS: ENOXAPARIN SODIUM 30 MG/0.3 ML SYG SUBCU SCH (21:25)
[2019-12-10] MEDS: BACLOFEN 10 MG TAB PO SCH (21:25)
[2019-12-10] MEDS: ASPIRIN (ENTERIC COATED) 81 MG TAB PO SCH (21:25)
[2019-12-10] MEDS: diphenhydrAMINE HCL 25 MG CAP PO SCH (21:25)
[2019-12-10] MEDS: GABAPENTIN 300 MG CAP PO SCH (21:26)
[2019-12-10] MEDS: ATORVASTATIN 20 MG TAB PO SCH (21:26)
[2019-12-11] MEDS: methylPREDNISolone SODIUM SUC 40 MG/ML VIAL IV SCH ×4 (00:06→22:10)
[2019-12-11] MEDS: PIPERACILLIN/TAZOBACTAM 3.375 GM in SODIUM CHLORIDE 0.9% 100ML 100 ML IVPB SCH ×3 (01:49→18:31)
[2019-12-11] MEDS: PANTOPRAZOLE SODIUM IV 40 MG VIAL IV SCH (06:23)
[2019-12-11] MEDS ORDERED: SODIUM CHLORIDE 0.9% 100ML 100 ML IVPB ONE ×3 (08:22→19:16)
[2019-12-11] MEDS ORDERED: PIPERACILLIN/TAZOBACTAM 3.375 GM VIAL IVPB ONE ×3 (08:22→19:16)
[2019-12-11] MEDS: ALBUTEROL INHALER 64 PUFF/8GM INH SCH ×4 (08:40→20:40)
[2019-12-11] MEDS ORDERED: DEXTROSE 50% 25 GM/50 ML SYG IV PRN (08:42)
[2019-12-11] MEDS ORDERED: GLUCAGON INJ 1 MG VIAL SUBCU PRN (08:42)
--- NOTE | 2019-12-11 09:04 | PN ---
SUPERVISING PHYSICIAN: Atif Cheatham MD DATE: 12/10/19 SUBJECTIVE: The patient is lying in bed. She denies any shortness of breath, nausea or vomiting, diarrhea, constipation or chest pain. She has agreed to home health as she knows she is unable to care for herself completely and she realizes she needs some extra help. OBJECTIVE: VITAL SIGNS: Temperature 98, heart rate 78, blood pressure 138/65, respiratory rate 18, oxygen saturation 97% on 4 liters nasal cannula. CHEST: Scattered rhonchi throughout with occasional tachypnea noted,. HEART: Regular rate and rhythm. ABDOMEN: Soft, nondistended, non-tender. Bowel sounds are positive. NEUROLOGIC: She is awake, alert, and oriented x3. LABORATORY: WBC 11,000, hemoglobin 10, hematocrit 30.5, there is a left shift on the differential. Chemistries show electrolytes unremarkable with BUN 24, creatinine has improved at 1.73. Sputum culture is pending, gram stain pending. Preliminary blood cultures show no growth after 24 hours. Chest x-ray shows persistent ill-defined density peripherally in the right upper lobe, little changed and consistent with small area of atelectasis/consolidation or a ill-defined area of vague nodularity. Continued followup recommended. All other labs and films have been reviewed via the EMR. ASSESSMENT: 1. Chronic obstructive pulmonary disease with acute exacerbation. 2. Hypoxia per ABG results with pO2 67. Her admitting O2 saturation was 84%. 3. Stable right upper lobe pneumonia. She was treated about 2 to 3 weeks ago with azithromycin and Rocephin. 4. Mild diastolic dysfunction congestive heart failure with 55-60% ejection fraction per echocardiogram 11/14/19. 5. Coronary artery disease with stents and previous three-vessel coronary artery bypass graft. 6. Acute on chronic renal insufficiency. Her baseline creatinine is 1.1. Her admitting creatinine is 1.96. 7. Partial solid pulmonary nodule with ground-glass opacities per CT scan on 09/28/19. Recommended followup is in 6 months. 8. High risk for COVID-19, awaiting results. PLAN: We will continue present supportive care. I have consulted [employer] for her to have home health on discharge. She will continue with her present antibiotics and will monitor closely as they become available. She will need close followup with her pony ride attendant. Her fluids will be discontinued and we will continue to monitor her closely and follow as needed. #[id number] [facility]
[2019-12-11] MEDS: FUROSEMIDE 40 MG TAB PO SCH (10:41)
[2019-12-11] MEDS: CILOSTAZOL 100 MG TAB PO SCH ×2 (10:41→20:28)
[2019-12-11] MEDS: ACETAMINOPHEN 325 MG TAB PO PRN ×2 (10:42→20:28)
[2019-12-11] MEDS: GABAPENTIN 300 MG CAP PO SCH ×3 (10:42→20:28)
[2019-12-11] MEDS: SODIUM CHLORIDE 0.9% (FLUSH) 10 ML SYG IV SCH ×2 (10:42→20:29)
[2019-12-11] MEDS: LISINOPRIL 10 MG TAB PO SCH (10:42)
[2019-12-11] MEDS: ATENOLOL 25 MG TAB PO SCH ×2 (10:42→20:28)
[2019-12-11] MEDS: INSULIN LISPRO 100 UNITS/ML PEN SUBCU SCH ×3 (13:39→21:37)
--- NOTE | 2019-12-11 14:22 | PN ---
SUPERVISING PHYSICIAN: Mc Cheatham MD DATE: 12/11/19 SUBJECTIVE: The patient is sitting up in bed. She is crocheting. She had chest pain earlier today, but no longer has any complaints of chest pain. She said it is more like she has muscle spasms in her neck. She drinks pickle juice at home when this happens. Otherwise, no shortness of breath, nausea or vomiting. OBJECTIVE: VITAL SIGNS: Temperature 97.4, heart rate 73, blood pressure 117/57, respiratory rate 16, oxygen saturation 95% on 3 liters nasal cannula. RESPIRATORY: Diminished breath sounds throughout. HEART: Regular rate and rhythm. ABDOMEN: Soft, nondistended, nontender. Bowel sounds are positive. NEUROLOGIC: She is awake, alert, and oriented x3. LABORATORY: WBC 17,700, hemoglobin 9.4, hematocrit 28.3. Sodium 134, potassium 5.1, chloride 98, carbon dioxide 28, BUN 28, creatinine 1.61. Glucose has run between 128 and 150. Calcium 8.3, magnesium 2.4. Liver enzymes are unremarkable. Cardiac enzymes were negative. There were no changes noted on her EKG. Sputum culture is pending, gram stain pending. Preliminary blood cultures show no growth after 24 hours. All other labs and films have been reviewed via the EMR. ASSESSMENT: 1. Chronic obstructive pulmonary disease with acute exacerbation. 2. Hypoxia per ABG results with pO2 67. Her admitting O2 saturation was 84%. 3. Stable right upper lobe pneumonia. She was treated about 2 to 3 weeks ago with azithromycin and Rocephin. 4. Mild diastolic dysfunction congestive heart failure with 55-60% ejection fraction per echocardiogram 11/14/19. 5. Coronary artery disease with stents and previous three-vessel coronary artery bypass graft. 6. Acute on chronic renal insufficiency. Her baseline creatinine is 1.1. Her admitting creatinine is 1.96. 7. Partial solid pulmonary nodule with ground-glass opacities per CT scan on 09/28/19. Recommended followup is in 6 months. 8. High risk for COVID-19, awaiting results. PLAN: We will continue present supportive care. I have added sliding insulin per protocol due to her increased blood sugars due to her steroids. I have reduced her steroids and will continue to taper until we get to oral prednisone. I will do lab and chest x-ray in the morning. We discussed her CT exam from September 2019 at her request. She will have [facility] on discharge. We will continue her Zosyn and follow her cultures as they become available. Hopefully her COVID testing will be resulted today. We will continue to monitor the patient closely and follow as needed. #[id number] [facility]
[2019-12-11] MEDS: diphenhydrAMINE HCL 25 MG CAP PO SCH (20:28)
[2019-12-11] MEDS: ENOXAPARIN SODIUM 30 MG/0.3 ML SYG SUBCU SCH (20:28)
[2019-12-11] MEDS: ATORVASTATIN 20 MG TAB PO SCH (20:29)
[2019-12-11] MEDS: ASPIRIN (ENTERIC COATED) 81 MG TAB PO SCH (20:29)
[2019-12-11] MEDS: BACLOFEN 10 MG TAB PO SCH (20:29)
[2019-12-12] MEDS: PIPERACILLIN/TAZOBACTAM 3.375 GM in SODIUM CHLORIDE 0.9% 100ML 100 ML IVPB SCH ×3 (01:30→17:16)
[2019-12-12] MEDS ORDERED: PANTOPRAZOLE SODIUM TAB 40 MG PO ONE (04:20)
[2019-12-12] MEDS: methylPREDNISolone SODIUM SUC 40 MG/ML VIAL IV SCH (06:10)
[2019-12-12] MEDS: PANTOPRAZOLE SODIUM TAB 40 MG PO SCH (06:10)
--- NOTE | 2019-12-12 07:31 | RAD ---
CHEST, ONE VIEW XR CLINICAL HISTORY: Pneumonia. COMPARISON: Multiple exams dating back to 12/02/2019. TECHNIQUE: AP Chest. FINDINGS: Heart is normal in size. Sternal wires and mediastinal clips again noted. Lungs are hyperinflated. No consolidation or pleural fluid. There is right upper lobe scarring. Biapical pleural thickening is stable. Unremarkable soft tissues and bones. IMPRESSION: 1. COPD. Stable right upper lobe scarring. No new acute finding. Electronically signed by: Madeline Cleveland DO 12/12/2019 7:30 AM CDT
[2019-12-12] MEDS: INSULIN LISPRO 100 UNITS/ML PEN SUBCU SCH ×2 (07:39→12:39)
[2019-12-12] MEDS ORDERED: SODIUM CHLORIDE 0.9% 100ML 100 ML IVPB ONE ×3 (08:37→18:56)
[2019-12-12] MEDS ORDERED: PIPERACILLIN/TAZOBACTAM 3.375 GM VIAL IVPB ONE ×3 (08:37→18:56)
[2019-12-12] MEDS: ALBUTEROL INHALER 64 PUFF/8GM INH SCH ×4 (09:50→20:56)
[2019-12-12] MEDS: LISINOPRIL 10 MG TAB PO SCH (09:52)
[2019-12-12] MEDS: ATENOLOL 25 MG TAB PO SCH ×2 (09:52→20:21)
[2019-12-12] MEDS: CILOSTAZOL 100 MG TAB PO SCH ×2 (09:52→20:21)
[2019-12-12] MEDS: GABAPENTIN 300 MG CAP PO SCH ×3 (09:52→20:20)
[2019-12-12] MEDS: SODIUM CHLORIDE 0.9% (FLUSH) 10 ML SYG IV SCH ×2 (09:53→20:21)
[2019-12-12] MEDS: FUROSEMIDE 40 MG TAB PO SCH (09:53)
[2019-12-12] MEDS: predniSONE 20 MG TAB PO SCH (14:06)
[2019-12-12] MEDS: diphenhydrAMINE HCL 25 MG CAP PO SCH (20:20)
[2019-12-12] MEDS: ENOXAPARIN SODIUM 30 MG/0.3 ML SYG SUBCU SCH (20:20)
[2019-12-12] MEDS: ATORVASTATIN 20 MG TAB PO SCH (20:20)
[2019-12-12] MEDS: BACLOFEN 10 MG TAB PO SCH (20:20)
[2019-12-12] MEDS: ASPIRIN (ENTERIC COATED) 81 MG TAB PO SCH (20:20)
[2019-12-12] MEDS: ACETAMINOPHEN 325 MG TAB PO PRN (20:30)
[2019-12-12] MEDS: LOPERAMIDE CAP 2 MG CAP PO PRN (21:40)
[2019-12-13] MEDS: LOPERAMIDE CAP 2 MG CAP PO PRN (00:01)
[2019-12-13] MEDS: INSULIN LISPRO 100 UNITS/ML PEN SUBCU SCH ×2 (00:15→00:16)
[2019-12-13] MEDS: IV SET AND CAP CHANGE INJ INJ SCH (00:17)
[2019-12-13] MEDS: BIFIDOBACTERIUM INFANTIS 4 MG CAP PO SCH ×2 (00:28→09:09)
[2019-12-13] MEDS: PIPERACILLIN/TAZOBACTAM 3.375 GM in SODIUM CHLORIDE 0.9% 100ML 100 ML IVPB SCH ×2 (02:30→09:15)
[2019-12-13] MEDS: PANTOPRAZOLE SODIUM TAB 40 MG PO SCH (06:12)
[2019-12-13] MEDS ORDERED: PIPERACILLIN/TAZOBACTAM 3.375 GM VIAL IVPB ONE (08:23)
[2019-12-13] MEDS ORDERED: SODIUM CHLORIDE 0.9% 100ML 100 ML IVPB ONE (08:24)
[2019-12-13] MEDS: ALBUTEROL INHALER 64 PUFF/8GM INH SCH ×2 (08:34→13:57)
[2019-12-13] MEDS: GABAPENTIN 300 MG CAP PO SCH (09:09)
[2019-12-13] MEDS: ATENOLOL 25 MG TAB PO SCH (09:09)
[2019-12-13] MEDS: LISINOPRIL 10 MG TAB PO SCH (09:10)
[2019-12-13] MEDS: predniSONE 20 MG TAB PO SCH (09:10)
[2019-12-13] MEDS: FUROSEMIDE 40 MG TAB PO SCH (09:10)
[2019-12-13] MEDS: CILOSTAZOL 100 MG TAB PO SCH (09:10)
[2019-12-13] MEDS: SODIUM CHLORIDE 0.9% (FLUSH) 10 ML SYG IV SCH (09:11)
--- NOTE | 2019-12-13 10:13 | PN ---
SUPERVISING PHYSICIAN: Mc Cheatham MD DATE: 12/12/19 SUBJECTIVE: The patient is sitting up in bed. She is crocheting. She had chest pain yesterday but had no further complaints of chest pain. No shortness of breath. She continues to be weak but that has improved somewhat. She should be able to be discharged as soon as her COVID-19 results are back. She will have [facility] on discharge with possible pulmonary rehabilitation. She did have complaints of some diarrhea but we have done stool studies. She said she does get diarrhea frequently after antibiotics. OBJECTIVE: VITAL SIGNS: Temperature 98.2, heart rate 78, blood pressure 123/62, respiratory rate 18, oxygen saturation 95% on 23 liters nasal cannula. RESPIRATORY: Potentially clear to auscultation bilaterally. HEART: Regular rate and rhythm. ABDOMEN: Soft, nondistended, nontender. Bowel sounds are positive. NEUROLOGIC: She is awake, alert, and oriented x3. LABORATORY: WBC 15,100, hemoglobin 9, hematocrit 27.5. Her blood sugars have run between 115 and 139. Electrolytes are basically within normal limits. Creatinine has improved to 1.36. Her C-diff is negative for protoxin and antigen. Sputum culture is pending, gram stain is pending. Preliminary blood cultures are pending but show no growth after 3 days. Her chest x-ray shows chronic obstructive pulmonary disease stable, right upper lung scarring, no acute findings. All other labs and films have been reviewed via the EMR. ASSESSMENT: 1. Chronic obstructive pulmonary disease with acute exacerbation. 2. Hypoxia per ABG results with pO2 67. Her admitting O2 saturation was 84%. 3. Stable right upper lobe pneumonia. She was treated about 2 to 3 weeks ago with azithromycin and Rocephin. She is presently being treated with Zosyn. 4. Mild diastolic dysfunction congestive heart failure with 55-60% ejection fraction per echocardiogram 11/14/19. 5. Coronary artery disease with stents and previous three-vessel coronary artery bypass graft. 6. Acute on chronic renal insufficiency. Her baseline creatinine is 1.1. Her admitting creatinine is 1.96. 7. Partial solid pulmonary nodule with ground-glass opacities per CT scan on 09/28/19. Recommended followup is in 6 months. 8. High risk for COVID-19, awaiting results. 9. Diarrhea most likely secondary to antibiotic administration. She is C-diff negative. PLAN: We will continue present supportive care. We are continuing to await her COVID-19 results. Will have lab for in the morning and steroids have been changed to oral. Stool studies have been ordered. [facility] has a referral and that should include some pulmonary rehabilitation if available. Hopefully, she can be discharged tomorrow with close followup with [facility]. We will continue to monitor the patient closely and follow as needed. #[id number] [facility]
[2019-12-13 13:59] VITALS: O2SAT 97
[2019-12-13 16:45] VITALS: BP 147/63; TEMP 97.6
--- NOTE | 2019-12-14 14:09 | DS ---
SUPERVISING PHYSICIAN: HALLEY MONTERO MD ADMISSION DIAGNOSIS: 1. Chronic obstructive pulmonary disease with acute exacerbation. 2. Hypoxia per ABG results with pO2 67. Her admitting O2 saturation was 84%. 3. Stable right upper lobe pneumonia. She was treated about 2 to 3 weeks ago with azithromycin and Rocephin. 4. Mild diastolic dysfunction congestive heart failure with 55-60% ejection fraction per echocardiogram 11/14/19. 5. Coronary artery disease with stents and previous three-vessel coronary artery bypass graft. 6. Acute on chronic renal insufficiency. Her baseline creatinine is 1.1. Her admitting creatinine is 1.96. 7. Partial solid pulmonary nodule with ground-glass opacities per CT scan on 09/28/19. Recommended followup is in 6 months. DISCHARGE DIAGNOSIS: 1. Acute exacerbation of chronic obstructive pulmonary disease with with community acquired pneumonia with a right upper lobe involvement. 2. Chronic congestive heart failure with diastolic dysfunction with ejection fraction of 55 to 60% on last echocardiogram on 11/14/19. 3. Coronary artery disease with previous stents, previous 3-vessel coronary artery bypass graft. 4. Acute on chronic renal insufficiency, improved, continuing to show elevation of creatinine likely due to antibiotic therapy from Zosyn requiring further followup as another outpatient. 5. Partial solid pulmonary nodule with ground-glass opacities as noted on last CT scan on 09/28/19 with recommended followup in 6 months. 6. Negative COVID-19 testing. . 7. Antibiotic associated diarrhea with negative C-diff. REASON FOR HOSPITALIZATION: This is a 74-year-old female patient who presented to the Emergency Room after several hours of shortness of breath that came on quite suddenly. She does have a long history of COPD and quit smoking approximately 5 years ago. She had actually been in the hospital twice at the end of October, once for exacerbation of congestive heart failure and the other time for right upper lobe pneumonia and had been doing quite well. She had been taking her medications as ordered. She actually had seen Dr. Rose, her primary care physician, several times over the last couple of weeks. She was feeling much better and decided to clean out a craft room that had lots of storage in it. She did feel she over exerted herself, but the room was not significantly dirty other than just dust. She also was concerned that shortly after the weather changed, her breathing worsened after the front came through. She became so short of breath that she came to the Emergency Room. She is on home oxygen and usually just utilizes O2 at night. In the Emergency Room, her vital signs showed temperature 96.4, heart rate 85, blood pressure 103/55, respiratory rate 22, O2 saturation 84% on room air. She was short of breath with labored breathing. She was tachypneic. Laboratory studies were done and her WBCs were 11,600 with hemoglobin 10.4, hematocrit 31.2. Blood gas showed pCO2 44, pO2 63, bicarb 26.9, O2 sat on oxygen 91.1 with pH 7.39. Her electrolytes were basically within normal limits. BUN 19, creatinine 1.96. Her baseline creatinine is about 1.1. Glucose high at 145, lactic acid 1.6. Liver enzymes were within normal limits. Blood cultures were drawn. A chest x-ray showed no acute cardiopulmonary abnormalities with stable emphysema, stable infiltrate versus nodule in the lateral right upper lobe. It is to be noted that she also has some mild speech impairment that has been going on for several weeks. She says her stuttering worsens when her blood pressure gets low. She is seeing her primary care physician, Dr. Rose, and had a workup that included an MRI of the brain. She received several breathing treatments in the Emergency Room as well as some Rocephin in some IV prednisone. She was admitted to the hospital in stable condition. LABORATORY: White count on discharge was 10,700, hemoglobin 9.4, hematocrit 28.5, platelet count at 289,000, differential was showing a left shift. Coagulation studies showed to be normal. Blood gas analysis on admission on 2 liters nasal cannula showed a pH 7.39 with P02 of 63, bicarb 26.9 with PC02 of 44, oxygen saturation 91.1%. Final chemistries on discharge showed normal electrolytes with BUN of 28, creatinine 1.76, calcium 8.1. Liver functions within normal limits. Urinalysis showed to be within normal limits. MICROBIOLOGY: Blood cultures were negative for 4 days. Final sputum culture results showed moderate mixed normal respiratory harvey. COVID-19 by PCR was negative. C-difficile toxin A and B was negative. RADIOLOGY: Final chest x-ray on date of discharge per radiology interpretation showed stable right upper lobe scarring, no acute findings suggestive of chronic obstructive pulmonary disease. HOSPITAL COURSE: Ms. Nunez was admitted for exacerbation of chronic obstructive pulmonary disease with right upper lobe pneumonia, excessive. She was treated with antibiotics parenterally with Zosyn, apparently tapered steroids and did show good clinical improvement and it was she had improved clinically well enough to continue with outpatient management. DISCHARGE ASSESSMENT: VITAL SIGNS: Temperature 97.6, pulse 78, blood pressure 147/63, respirations 18, oxygen saturation 97% on 2 liters nasal cannula in which patient os 02 dependent. CHEST: The right upper lobe posteriorly still had some coarseness but more chronic with bronchial sounds clearing with deep inspiratory effort and coughing. Otherwise, lungs are clear, just slightly diminished towards the bases. HEART: Regular rate and rhythm. ABDOMEN: Soft, non-tender, positive bowel sounds. EXTREMITIES: No edema. NEUROLOGIC: She is alert and oriented x 3. PLAN: Ms. Nunez was discharged to followup with Dr. Rose and to call his office for an appointment next week. She is to resume her previous medications as prior to hospitalization. Diet to be low sodium diet and activities as tolerated. She is to return to the Emergency Department for any concerning symptoms. Home health had been arranged through [facility] on discharge. She will need followup with CT in 6 months on the nodule that was seen on CT in September. She was instructed to wear her oxygen 24/7 until she is completely recovered back to baseline lung function. She is to be on antibiotics including Augmentin 875 b.i.d. for 7 days, Align 4 mg twice a da while on antibiotics and a low-dose prednisone 10 mg tablets, she is to take 20 mg for 3 days, then 10 mg for 3 days, then 5 mg daily. She is to resume followup. DISPOSITION: The patient is discharged home with home health. CONDITION ON DISCHARGE: Stable and improved. #[id number] [facility]
== END 2019-12-13 13:15 | disposition home or self-care (01) | DRG 190 ==
LOC: ER 17:16 → UNDOADMOB 20:45 → MS 20:45 → INTOOBSV 20:45 → MS 20:45 → OBSVTOIN 20:45 → MS 20:46 → UNDOADMOB 20:46 → MS 12-10 20:45 → INTOOBSV 12-13 01:47 → MS 12-13 01:47 → UNDOADMOB 12-13 01:47 → OBSVTOIN 12-13 01:47 → UNDODISIN 12-13 13:15
PROVIDERS: ADMIT Nurse Practitioner Acute Care; ATTEND Nurse Practitioner Acute Care
DX: J44.1 Chronic obstructive pulmonary disease with (acute) exacerbation (principal); J18.9 Pneumonia, unspecified organism; I50.32 Chronic diastolic (congestive) heart failure; K52.1 Toxic gastroenteritis and colitis; J44.0 Chronic obstructive pulmonary disease with (acute) lower respiratory infection; R09.02 Hypoxemia; I25.10 Atherosclerotic heart disease of native coronary artery without angina pectoris; N18.9 Chronic kidney disease, unspecified; N28.9 Disorder of kidney and ureter, unspecified; R91.1 Solitary pulmonary nodule; M81.0 Age-related osteoporosis without current pathological fracture; Z95.1 Presence of aortocoronary bypass graft; Z95.5 Presence of coronary angioplasty implant and graft; T36.0X5A Adverse effect of penicillins, initial encounter; Y92.230 Patient room in hospital as the place of occurrence of the external cause; Z87.891 Personal history of nicotine dependence; Z99.81 Dependence on supplemental oxygen; Z88.2 Allergy status to sulfonamides; Z79.82 Long term (current) use of aspirin; Z79.1 Long term (current) use of non-steroidal anti-inflammatories (NSAID); Z79.899 Other long term (current) drug therapy

== ENCOUNTER 2019-12-22 10:03 | Inpatient (IN) | payer MEDICARE ==
[2019-12-22] MEDS ORDERED: ACETAMINOPHEN 500 MG TAB PO ONE (10:21)
[2019-12-22] MEDS ORDERED: SODIUM CHLORIDE 0.9% 1000ML 1,000 ML IVS ONE (10:21)
--- NOTE | 2019-12-22 10:32 | ED.PDOC ---
History of Present Illness - General Chief Complaint: General Stated Complaint: weakness and home health concerned Time Seen by Provider: 12/22/19 10:18 - History of Present Illness Initial Comments: 74 yo F PMH [facility] recent admission for Pneumonia PMD Claudia Rose presents to ED, son at bedside, after home health nurse became worried for tachycardia this am cough persists. Denies recent travel or contact with covid19 denies fever chills nausea vomiting diarrhea chest pain admits sob denies diaphoresis no change in diet rest bowel or bladder also reports generalized weakness denies drinking or smoking admits FH HTN denies FH DM no other c/o today. Allergies/Adverse Reactions: Allergies Sulfa Antibiotics Allergy (Verified 12/22/19 10:14) Unknown Home Medications: Ambulatory Orders Albuterol Inhaler [Ventolin Hfa Inhaler] 1 puff INH QID PRN 12/16/16 Aspirin [Aspirin EC] 81 mg PO BEDTIME 12/16/16 Atenolol [Tenormin] 25 mg PO BID 12/16/16 Atorvastatin Calcium [Lipitor] 40 mg PO BEDTIME 12/16/16 diphenhydrAMINE HCL [Benadryl] 50 mg PO BEDTIME 12/16/16 Cholecalciferol [Vitamin D3] 5,000 unit PO BEDTIME 11/19/19 Cilostazol 100 mg PO BID 11/19/19 Pantoprazole Sodium 40 mg PO BEDTIME 11/19/19 Potassium Chloride [K-Tab] 8 meq PO PRN PRN 11/19/19 Albuterol Sulfate Nebs [Proventil Nebs] 2.5 mg INH BID PRN 11/23/19 Albuterol Sulfate [Proair Hfa] 2 puff INH Q6H PRN 11/23/19 Gabapentin 300 mg PO TID PRN 11/23/19 Furosemide 20 mg PO DAILY #0 11/24/19 Lisinopril [Prinivil] 10 mg PO DAILY #30 tab 11/24/19 Baclofen 10 mg PO BEDTIME 12/09/19 Meloxicam 7.5 mg PO BID 12/09/19 Nitroglycerin 0.4 mg Tab [Nitrostat] 0 ea SL .Q5M PRN 12/09/19 Amoxicillin & Pot Clavulanate [Augmentin Tab] 875 mg PO BID #14 tab 12/13/19 Bifidobacterium Infantis [Align] 4 mg PO BID cap 12/13/19 Prednisone See Taper PO DAILY #12 tab 12/13/19 Review of Systems - Review of Systems Constitutional: States: see HPI EENTM: States: see HPI Respiratory: States: see HPI Cardiology: States: see HPI Gastrointestinal/Abdominal: States: see HPI Genitourinary: States: see HPI Musculoskeletal: States: see HPI Skin: States: see HPI Neurological: States: see HPI Endocrine: States: see HPI Hematologic/Lymphatic: States: see HPI All other Systems: Reviewed and Negative Past Medical History (General) - Patient Medical History Hx Seizures: No Hx Stroke: No Hx Dementia: No Hx Asthma: Yes Hx of COPD: Yes Hx Cardiac Disorders: Yes Hx Congestive Heart Failure: Yes Hx Pacemaker: No Hx Hypertension: Yes Hx Thyroid Disease: No Hx Diabetes: No Hx Gastroesophageal Reflux: No Hx Renal Disease: No Hx Cancer: No Hx of HIV: No Hx Hepatitis C: No Hx MRSA: No - Vaccination History Hx Tetanus, Diphtheria Vaccination: Yes Hx Influenza Vaccination: Yes Hx Pneumococcal Vaccination: Yes Immunizations Up to Date: Yes - Social History Hx Tobacco Use: No Hx Chewing Tobacco Use: No Hx Alcohol Use: No Hx Substance Use: No Hx Substance Use Treatment: No Hx Depression: No Feels Threatened In Home Enviroment: No Feels Threatened In a Relationship: No Hx Physical Abuse: No Hx Emotional Abuse: No Hx Suspected Abuse: No - Female History Patient is a Female of Child Bearing Age (10 -59 yrs old): No Patient : No Family Medical History - Family History Father Living Status: Hx Family Asthma: No Hx Family Congestive Heart Failure: No Hx Family Hypertension: Yes Hx Family Stroke: No Hx Cardiac Disease: Yes Hx Family Diabetes: No Hx Family Cancer: No Mother Living Status: Hx Family Asthma: No Hx Family Congestive Heart Failure: No Hx Family Hypertension: Yes Hx Family Stroke: No Hx Cardiac Disease: Yes Hx Family Diabetes: No Hx Family Cancer: Yes - lung cancer Physical Exam - Physical Exam General Appearance: No apparent distress - coughing Eye Exam: bilateral normal Ears, Nose, Throat: normal ENT inspection Neck: full range of motion Respiratory: rales - bases Cardiovascular/Chest: tachycardia - 108bpm Gastrointestinal/Abdominal: non tender, soft Rectal Exam: deferred Back Exam: normal inspection Extremity: normal range of motion, non-tender Neurologic: no motor/sensory deficits Skin Exam: normal color Progress - Progress Progress: 12/22/19 10:33 A/P-Generalized Weakness Dehydration Cough Tachycardia-iv bolus tylenol ekg cxr blood cultures zosyn vancomycin cbc cmp trop ua reassess d roplet/contact/airborne isolation EKG-non psecific TW changes Sinus Tachycardia 103bpm 12/22/19 10:37 PPE worn-N95 with surgical mask and attached face shield over N95 goggle gloves and face shield over that 12/22/19 11:23 EXAM DESCRIPTION: Chest,1 View CLINICAL HISTORY: cough FINDINGS/ IMPRESSION: Comparison 12/12/2019 Hyperinflation related to emphysema. Interstitial scarring in the right lung apex with a few small surgical clips. Similar vague opacity/ in the right upper lobe laterally. Heart size is normal. Coarsened interstitial markings, chronic interstitial lung disease with faint opacity in the right lung base, developing infiltrate Electronically signed by: Jerald Zimmerman MD 12/22/2019 10:51 AM CDT Laboratory Tests 12/22/19 12/22/19 12/22/19 10:20 10:20 10:20 WBC 18.0 H RBC 3.42 L Hgb 9.4 L Hct 28.5 L MCV 83.2 MCH 27.4 MCHC 32.9 L RDW 15.3 H Plt Count 230 MPV 7.3 L Absolute Neuts (auto) 15.60 H Absolute Lymphs (auto) 1.10 Absolute Monos (auto) 1.10 H Absolute Eos (auto) 0.10 Absolute Basos (auto) 0.10 Neutrophils % 86.7 H Lymphocytes % 6.2 L Monocytes % 6.3 Eosinophils % 0.5 L Basophils % 0.3 Sodium 136 Potassium 3.7 Chloride 101 Carbon Dioxide 26 Anion Gap 12.7 BUN 17 Creatinine 1.54 H BUN/Creatinine Ratio 11.0 Random Glucose 105 Serum Osmolality 273.9 L Lactic Acid Calcium 7.8 L Total Bilirubin 0.6 AST 18 ALT 17 Alkaline Phosphatase 60 Troponin I < 0.02 Serum Total Protein 6.0 L Albumin 3.1 L Globulin 2.9 Albumin/Globulin Ratio 1.1 12/22/19 10:30 WBC RBC Hgb Hct MCV MCH MCHC RDW Plt Count MPV Absolute Neuts (auto) Absolute Lymphs (auto) Absolute Monos (auto) Absolute Eos (auto) Absolute Basos (auto) Neutrophils % Lymphocytes % Monocytes % Eosinophils % Basophils % Sodium Potassium Chloride Carbon Dioxide Anion Gap BUN Creatinine BUN/Creatinine Ratio Random Glucose Serum Osmolality Lactic Acid 1.1 Calcium Total Bilirubin AST ALT Alkaline Phosphatase Troponin I Serum Total Protein Albumin Globulin Albumin/Globulin Ratio 12/22/19 12:31 Laboratory Tests 12/22/19 12/22/19 12/22/19 10:20 10:20 10:20 WBC 18.0 H RBC 3.42 L Hgb 9.4 L Hct 28.5 L MCV 83.2 MCH 27.4 MCHC 32.9 L RDW 15.3 H Plt Count 230 MPV 7.3 L Absolute Neuts (auto) 15.60 H Absolute Lymphs (auto) 1.10 Absolute Monos (auto) 1.10 H Absolute Eos (auto) 0.10 Absolute Basos (auto) 0.10 Neutrophils % 86.7 H Lymphocytes % 6.2 L Monocytes % 6.3 Eosinophils % 0.5 L Basophils % 0.3 Sodium 136 Potassium 3.7 Chloride 101 Carbon Dioxide 26 Anion Gap 12.7 BUN 17 Creatinine 1.54 H BUN/Creatinine Ratio 11.0 Random Glucose 105 Serum Osmolality 273.9 L Lactic Acid Calcium 7.8 L Total Bilirubin 0.6 AST 18 ALT 17 Alkaline Phosphatase 60 Troponin I < 0.02 Serum Total Protein 6.0 L Albumin 3.1 L Globulin 2.9 Albumin/Globulin Ratio 1.1 12/22/19 12/22/19 10:30 11:40 WBC RBC Hgb Hct MCV MCH MCHC RDW Plt Count MPV Absolute Neuts (auto) Absolute Lymphs (auto) Absolute Monos (auto) Absolute Eos (auto) Absolute Basos (auto) Neutrophils % Lymphocytes % Monocytes % Eosinophils % Basophils % Sodium Potassium Chloride Carbon Dioxide Anion Gap BUN Creatinine BUN/Creatinine Ratio Random Glucose Serum Osmolality Lactic Acid 1.1 Calcium Total Bilirubin AST ALT Alkaline Phosphatase Troponin I < 0.02 Serum Total Protein Albumin Globulin Albumin/Globulin Ratio Departure - Departure Clinical Impression: HCAP (healthcare-associated pneumonia), Generalized weakness, Dehydration, Cough, Tachycardia Leukocytosis Qualifiers: Leukocytosis type: unspecified Qualified Code(s): D72.829 - Elevated white blood cell count, unspecified Time of Disposition: 12:31 Disposition: Discharge to Home or Self Care Departure Forms: ED Discharge - Pt. Copy, Patient Portal Self Enrollment Referrals: Jerald Rose MD [Primary Care Provider] - 1-2 Weeks Home Medications: Ambulatory Orders Albuterol Inhaler [Ventolin Hfa Inhaler] 1 puff INH QID PRN 12/16/16 Aspirin [Aspirin EC] 81 mg PO BEDTIME 12/16/16 Atenolol [Tenormin] 25 mg PO BID 12/16/16 Atorvastatin Calcium [Lipitor] 40 mg PO BEDTIME 12/16/16 diphenhydrAMINE HCL [Benadryl] 50 mg PO BEDTIME 12/16/16 Cholecalciferol [Vitamin D3] 5,000 unit PO BEDTIME 11/19/19 Cilostazol 100 mg PO BID 11/19/19 Pantoprazole Sodium 40 mg PO BEDTIME 11/19/19 Potassium Chloride [K-Tab] 8 meq PO PRN PRN 11/19/19 Albuterol Sulfate Nebs [Proventil Nebs] 2.5 mg INH BID PRN 11/23/19 Albuterol Sulfate [Proair Hfa] 2 puff INH Q6H PRN 11/23/19 Gabapentin 300 mg PO TID PRN 11/23/19 Furosemide 20 mg PO DAILY #0 11/24/19 Lisinopril [Prinivil] 10 mg PO DAILY #30 tab 11/24/19 Baclofen 10 mg PO BEDTIME 12/09/19 Meloxicam 7.5 mg PO BID 12/09/19 Nitroglycerin 0.4 mg Tab [Nitrostat] 0 ea SL .Q5M PRN 12/09/19 Amoxicillin & Pot Clavulanate [Augmentin Tab] 875 mg PO BID #14 tab 12/13/19 Bifidobacterium Infantis [Align] 4 mg PO BID cap 12/13/19 Prednisone See Taper PO DAILY #12 tab 12/13/19 Decision To Admit - Decistion To Admit Decision to Admit Date: 12/22/19 Decision to Admit Time: 12:31
--- NOTE | 2019-12-22 10:52 | RAD ---
EXAM DESCRIPTION: Chest,1 View CLINICAL HISTORY: cough FINDINGS/ IMPRESSION: Comparison 12/12/2019 Hyperinflation related to emphysema. Interstitial scarring in the right lung apex with a few small surgical clips. Similar vague opacity/ in the right upper lobe laterally. Heart size is normal. Coarsened interstitial markings, chronic interstitial lung disease with faint opacity in the right lung base, developing infiltrate Electronically signed by: Jerald Zimmerman MD 12/22/2019 10:51 AM CDT
[2019-12-22] MEDS ORDERED: SODIUM CHLORIDE 0.9% (FLUSH) 10 ML SYG IV PRN (12:42)
--- NOTE | 2019-12-22 12:58 | HP ---
SUPERVISING PHYSICIAN: Jerald Rose MD CHIEF COMPLAINT: Shortness of breath. HISTORY OF PRESENT ILLNESS: This is a 74-year-old female who came into the Emergency Room initially for some tremoring in her hands that she states has been getting progressively worse. She also had some shortness of breath and productive cough. She was evaluated in the Emergency Room by the ER physician and was noted to be a little short of breath at that time. He states she was coughing and hacking up sputum. Home health nurses referred the patient to the Emergency Room secondary to tachycardia. In the ER, her workup included some labs and chest x-ray. There is a right base infiltrate noted as well as leukocytosis with a white count of 18,000. She had a fever of 99.9 in the Emergency Room. She has already been tested for COVID on two separate occasions, however, she once again meets the criteria for this, so this was done as well. At time of examination, the patient is alert and oriented. PAST MEDICAL HISTORY: 1. Chronic obstructive pulmonary disease. 2. Osteoporosis. 3. Coronary artery disease. 4. Diastolic heart failure. 5. Renal insufficiency. PAST SURGICAL HISTORY: 1. Coronary artery bypass graft. 2. PTCA with stent. 3. Appendectomy. 4. Cholecystectomy. 5. Hysterectomy. 6. Multiple neck surgeries. MEDICATIONS: Please see [employer] list once verified in the computer. ALLERGIES: SULFA DRUGS. FAMILY HISTORY: The patient states there is a family history of coronary artery disease, hypertension, hypothyroidism, and lung cancer. SOCIAL HISTORY: The patient has a history of smoking, but quit 5 years ago. She is currently exposed to secondhand smoke. No alcohol, no illicit drugs. REVIEW OF SYSTEMS: CONSTITUTIONAL: She does have some fatigue and fever, but no significant chills. HEENT: No headaches, vision changes, ear pain, nasal congestion or throat pain. RESPIRATORY: Positive for cough and shortness of breath. Negative for hemoptysis. CARDIOVASCULAR: No chest pain, palpitations or peripheral edema. GASTROINTESTINAL: No nausea, vomiting, diarrhea, constipation or abdominal pain. GENITOURINARY: No dysuria, frequency or flank pain. ENDOCRINE: No polydipsia, polyuria or polyphagia. No heat or cold intolerance. SKIN: No rashes, lesions or wounds. EXTREMITIES: No edema. NEUROLOGIC: Positive for tremors. No syncope, paresthesias. PHYSICAL EXAMINATION: VITAL SIGNS: Blood pressure 112/48, heart rate 87, respiratory rate 20, temperature 98.5, oxygen saturation 97% on 3 liters via nasal cannula. GENERAL: Ms. Nunez is a 74-year-old female who is in no severe. distress currently. HEENT: Normocephalic, atraumatic. Pupils are equal and reactive. No nasal drainage. Throat with moist mucosa. NECK: Supple. Midline trachea. No jugular venous distention. CHEST: Symmetrical with equal rise and fall of the chest with inspiration and expiration. Lung sounds are are diminished. CARDIOVASCULAR: Regular rate and rhythm. Normal S1, S2. ABDOMEN: Soft. Positive bowel sounds. EXTREMITIES: Lower extremities with no significant edema. Pulses 2+. Capillary refill is less than 2 seconds. LABORATORY: As stated above, chest x-ray with some right upper lobe scarring, but there is also a developing right base infiltrate. She has labs with a normal lactate, elevated creatinine of 1.54 whereas her baseline creatinine is about 1.1 from previous records. White count 18,000, hemoglobin 9.4, platelet count 230. There is a lefts shift of 86.7. ASSESSMENT: 1. Recurrent pneumonia. 2. Chronic obstructive pulmonary disease exacerbation. 3. Tremors. 4. Acute on chronic kidney disease. 5. History of coronary artery disease with no evidence of current complications. PLAN: Since the patient has been admitted within the last month, I will treat her for healthcare associated pneumonia with vancomycin and cefepime. We will get a sputum, monitor the cultures and adjust antibiotics accordingly. Given the patient's fever, cough and pneumonia, she technically meets criteria to be tested for COVID. Therefore, this has been done. She will remain in isolation. She is not wheezing and although does have a COPD exacerbation, we will currently treat with albuterol inhaler at this time given the COVID rule out. If she starts to decompensate, we will need to escalate. However, at this time, her oxygen saturation is good on 3 liters. I ordered DVT and GI ulcer prophylaxis for her as well. I believe her tremors are likely secondary to some of her medications. She is still on steroids and bronchodilators from the last admission. We will monitor her status here in the hospital and see if that improves off of steroids. If it does not, then she may necessitate a neurology consultation to evaluate the tremors. This can be done as an outpatient, however. #[id number] [facility]
[2019-12-22] MEDS ORDERED: IV SET AND CAP CHANGE INJ INJ SCH (13:00)
[2019-12-22] MEDS ORDERED: SODIUM CHLORIDE 0.9% IVPB SCH (13:00)
[2019-12-22] MEDS ORDERED: VANCOMYCIN HCL IVPB SCH (13:00)
[2019-12-22] MEDS: CEFEPIME 2 GM in SODIUM CHL 0.9% 50ML MIN-BAG+ 50 ML IVPB SCH (13:52)
[2019-12-22] MEDS: ENOXAPARIN SODIUM 40 MG/0.4 ML SYG SUBCU SCH (13:54)
[2019-12-22] MEDS ORDERED: SODIUM CHLORIDE 0.9% 500ML 500 ML ONE (14:54)
[2019-12-22] MEDS ORDERED: VANCOMYCIN HCL INJ 1,000 MG VIAL IVPB ONE (14:54)
[2019-12-22] MEDS: LACTATED RINGERS 1,000 ML IVS PRN (14:58)
[2019-12-22] MEDS: ALBUTEROL INHALER 64 PUFF/8GM INH SCH ×2 (16:00→20:00)
[2019-12-22] MEDS ORDERED: NITROGLYCERIN 0.4 MG 25 EA TAB SL PRN (16:09)
[2019-12-22] MEDS: BUDESONIDE/FORMOTEROL 160/4.5 60 PUFF/6 GM INH INH SCH (20:00)
[2019-12-22] MEDS: diphenhydrAMINE HCL 25 MG CAP PO SCH (21:00)
[2019-12-22] MEDS: MELOXICAM 7.5 MG TAB PO SCH (21:44)
[2019-12-22] MEDS: BACLOFEN 10 MG TAB PO SCH (21:44)
[2019-12-22] MEDS: CHOLECALCIFEROL 2,000 IU TAB PO SCH (21:45)
[2019-12-22] MEDS: ATENOLOL 25 MG TAB PO SCH (21:45)
[2019-12-22] MEDS: GABAPENTIN 300 MG CAP PO SCH (21:46)
[2019-12-22] MEDS ORDERED: SODIUM CHL 0.9% 50ML MIN-BAG+ 50 ML IVPB ONE (21:46)
[2019-12-22] MEDS: CILOSTAZOL 100 MG TAB PO SCH (21:48)
[2019-12-22] MEDS: CYCLOBENZAPRINE HCL 10 MG TAB PO SCH (21:48)
[2019-12-22] MEDS ORDERED: CEFEPIME 2 GM VIAL ONE (21:48)
[2019-12-22] MEDS: ATORVASTATIN 20 MG TAB PO SCH (21:49)
[2019-12-22] MEDS: ASPIRIN (ENTERIC COATED) 81 MG TAB PO SCH (21:49)
[2019-12-22] MEDS ORDERED: PANTOPRAZOLE SODIUM IV 40 MG VIAL ONE (21:49)
[2019-12-23] MEDS: ALBUTEROL INHALER 64 PUFF/8GM INH SCH ×6 (01:00→20:00)
[2019-12-23] MEDS: LACTATED RINGERS 1,000 ML IVS PRN ×2 (04:36→18:20)
[2019-12-23] MEDS: PANTOPRAZOLE SODIUM IV 40 MG VIAL IV SCH (06:12)
--- NOTE | 2019-12-23 07:07 | RAD ---
CLINICAL HISTORY: Pneumonia COMPARISON: 12/22/2019. TECHNIQUE: XR CHEST 1 VIEW 12/23/2019 7:00 AM CDT FINDINGS: The heart is borderline in size. Sternotomy was performed. There are mild patchy opacities within both lungs. Lungs are hyperinflated. There is no pleural effusion. There is no pneumothorax. There are no acute osseous findings. IMPRESSION: No change. Electronically signed by: Maynor Carrera MD 12/23/2019 7:06 AM CDT
[2019-12-23] MEDS: BUDESONIDE/FORMOTEROL 160/4.5 60 PUFF/6 GM INH INH SCH ×2 (08:52→20:53)
[2019-12-23] MEDS ORDERED: SODIUM CHL 0.9% 50ML MIN-BAG+ 50 ML IVPB ONE ×2 (09:37→19:33)
[2019-12-23] MEDS ORDERED: CEFEPIME 2 GM VIAL ONE ×2 (09:38→19:34)
[2019-12-23] MEDS ORDERED: BIFIDOBACTERIUM INFANTIS 4 MG CAP ONE (09:39)
[2019-12-23] MEDS: ATENOLOL 25 MG TAB PO SCH ×2 (09:52→20:18)
[2019-12-23] MEDS: POTASSIUM CHLORIDE 8 MEQ TAB PO SCH (09:52)
[2019-12-23] MEDS: LISINOPRIL 10 MG TAB PO SCH (09:52)
[2019-12-23] MEDS: MULTIPLE VITAMINS W/ MINERALS 1 EA TAB PO SCH (09:52)
[2019-12-23] MEDS: MELOXICAM 7.5 MG TAB PO SCH ×2 (09:52→20:18)
[2019-12-23] MEDS: GABAPENTIN 300 MG CAP PO SCH ×3 (09:52→20:18)
[2019-12-23] MEDS: CILOSTAZOL 100 MG TAB PO SCH ×2 (09:52→20:21)
[2019-12-23] MEDS: BIFIDOBACTERIUM INFANTIS 4 MG CAP PO SCH (09:53)
--- NOTE | 2019-12-23 11:53 | PN ---
SUPERVISING PHYSICIAN: Jerald Rose MD DATE: 12/23/19 SUBJECTIVE: The patient states she is breathing fairly well, still having the cough. Her tremors seem to be a little bit better than they were yesterday, but she is still having them occasion. OBJECTIVE: VITAL SIGNS: Blood pressure 148/71. Heart rate 85. Respiratory rate 20. Temperature 98.2. Oxygen saturation 96%. GENERAL: Ms. Nunez is a 74-year-old female in no active distress currently. NEUROLOGIC: Alert. LUNGS: Diminished with mild expiratory wheezing. CARDIOVASCULAR: Regular rate and rhythm. Normal S1, S2. ABDOMEN: Soft. Positive bowel sounds. GENITOURINARY: Deferred. EXTREMITIES: Lower extremities with no edema. LABORATORY: White count improved to 12.4, hemoglobin 8.8, hematocrit 27.3, platelet count 185. Chemistry with improvement of creatinine to 1.3. RADIOLOGY: Chest x-ray shows no significant change from yesterday. ASSESSMENT: 1. Recurrent pneumonia. 2. Chronic obstructive pulmonary disease exacerbation. 3. Tremors. 4. Acute on chronic kidney disease. 5. History of coronary artery disease with no evidence of current complications. PLAN: With her improvement in white count, we will continue current antibiotics. I would like to put her on nebulized DuoNeb, however, we will need to wait until her COVID is back. Tremors seem to be a little bit improved, but I am not sure exactly what this is secondary to. I do think she needs a neurological evaluation at some point. It could be an essential tremor. It also could be secondary to albuterol and her steroids. We will also put in a referral to [facility] for pulmonary rehabilitation. I think she would benefit from that given the fact she has had multiple ER visits and admissions over the last couple of months with this pneumonia. #[id number] [facility]
[2019-12-23] MEDS: ENOXAPARIN SODIUM 40 MG/0.4 ML SYG SUBCU SCH (12:30)
[2019-12-23] MEDS: CEFEPIME 2 GM in SODIUM CHL 0.9% 50ML MIN-BAG+ 50 ML IVPB SCH ×4 (12:30→23:48)
[2019-12-23] MEDS ORDERED: VANCOMYCIN HCL INJ 750 MG in SODIUM CHLORIDE 0.9% 250ML 250 ML IVPB SCH (13:00)
[2019-12-23] MEDS: CHOLECALCIFEROL 2,000 IU TAB PO SCH (20:16)
[2019-12-23] MEDS: CYCLOBENZAPRINE HCL 10 MG TAB PO SCH (20:17)
[2019-12-23] MEDS: ATORVASTATIN 20 MG TAB PO SCH (20:17)
[2019-12-23] MEDS: diphenhydrAMINE HCL 25 MG CAP PO SCH (20:17)
[2019-12-23] MEDS: ASPIRIN (ENTERIC COATED) 81 MG TAB PO SCH (20:18)
[2019-12-23] MEDS: BACLOFEN 10 MG TAB PO SCH (20:20)
--- NOTE | 2019-12-24 03:50 | RAD ---
EXAM DESCRIPTION: Ankle,Left 3 Views CLINICAL HISTORY: Fall/injury. COMPARISON: 03/13/2014 FINDINGS: 3 views of the left ankle. No acute fracture or dislocation. Osteopenia. Atherosclerotic vascular calcification. Tibial plafond and talar dome have appropriate alignment. IMPRESSION: 1. No acute fracture or dislocation. Electronically signed by: Atif Montiel 12/24/2019 3:49 AM CDT
--- NOTE | 2019-12-24 03:52 | RAD ---
EXAM DESCRIPTION: Ankle,Right 3 Views CLINICAL HISTORY: Fall/pain COMPARISON: 03/13/2014 FINDINGS: 3 views of the right ankle. Lucency through the superior aspect of the navicular. Osteopenia. Atherosclerotic vascular calcification. Tibial plafond and talar dome have appropriate alignment. IMPRESSION: 1. Possible nondisplaced fracture of the navicular which is not well evaluated on this study. Correlation with dedicated radiographs of the right foot recommended. Electronically signed by: Atif Montiel 12/24/2019 3:51 AM CDT
--- NOTE | 2019-12-24 04:04 | RAD ---
EXAM DESCRIPTION: Knee,Right 1 or 2 Views CLINICAL HISTORY: Fall/pain. COMPARISON: None. FINDINGS: 2 views of the right knee. Atherosclerotic vascular calcification. Osteopenia. No joint effusion. No acute fracture. IMPRESSION: 1. No acute fracture. Electronically signed by: Atif Montiel 12/24/2019 4:03 AM CDT
[2019-12-24] MEDS: ACETAMINOPHEN 325 MG TAB PO PRN ×3 (04:05→15:31)
--- NOTE | 2019-12-24 04:10 | RAD ---
EXAM DESCRIPTION: Knee,Left 1 or 2 Views CLINICAL HISTORY: Fall/pain COMPARISON: None. FINDINGS: 2 views of the left knee. Postoperative change of the medial aspect of the knee. Atherosclerotic vascular calcification. Osteopenia. No acute fracture or dislocation. No joint effusion. IMPRESSION: 1. No acute fracture or dislocation. Electronically signed by: Atif Montiel 12/24/2019 4:08 AM CDT
--- NOTE | 2019-12-24 04:28 | RAD ---
CLINICAL HISTORY: fall COMPARISON: None. TECHNIQUE: XR FOOT 3 OR MORE VIEWS 12/24/2019 4:03 AM CDT FINDINGS: There is no fracture. Joint spaces are preserved. There is mild soft tissue swelling anteriorly. Bones are osteopenic. IMPRESSION: No acute osseous findings. Electronically signed by: Maynor Carrera MD 12/24/2019 4:26 AM CDT
[2019-12-24] MEDS: ALBUTEROL INHALER 64 PUFF/8GM INH SCH ×5 (04:45→18:35)
[2019-12-24] MEDS: PANTOPRAZOLE SODIUM IV 40 MG VIAL IV SCH (05:55)
[2019-12-24] MEDS: NON-FORMULARY MEDICATION 1 EA MIS (Umeclidinium-Vilanterol [Anoro Ellipta 62.5-25 Mcg/Inh] IN SCH ×2 (07:15→08:15)
[2019-12-24] MEDS ORDERED: SODIUM CHLORIDE 0.9% 250ML 250 ML ONE (08:07)
[2019-12-24] MEDS ORDERED: VANCOMYCIN HCL INJ 1,000 MG VIAL IVPB ONE (08:08)
[2019-12-24] MEDS: MELOXICAM 7.5 MG TAB PO SCH (08:15)
[2019-12-24] MEDS: CILOSTAZOL 100 MG TAB PO SCH (08:15)
[2019-12-24] MEDS: ATENOLOL 25 MG TAB PO SCH (08:15)
[2019-12-24] MEDS: LISINOPRIL 10 MG TAB PO SCH (08:15)
[2019-12-24] MEDS: BIFIDOBACTERIUM INFANTIS 4 MG CAP PO SCH (08:15)
[2019-12-24] MEDS: MULTIPLE VITAMINS W/ MINERALS 1 EA TAB PO SCH (08:15)
[2019-12-24] MEDS: POTASSIUM CHLORIDE 8 MEQ TAB PO SCH (08:15)
[2019-12-24] MEDS: GABAPENTIN 300 MG CAP PO SCH ×2 (08:15→15:31)
[2019-12-24] MEDS: BUDESONIDE/FORMOTEROL 160/4.5 60 PUFF/6 GM INH INH SCH ×2 (08:35→18:35)
[2019-12-24] MEDS ORDERED: VANCOMYCIN HCL INJ 750 MG in SODIUM CHLORIDE 0.9% 250ML 250 ML IVPB SCH (09:00)
--- NOTE | 2019-12-24 09:14 | RAD ---
EXAM DESCRIPTION: Chest,1 View CLINICAL HISTORY: 74 years Female, pneumonia follow up COMPARISON: December 23, 2019 Findings: One view(s)/radiograph(s) Median sternotomy/CABG. Cardiac silhouette and pulmonary vasculature are within normal limits. No pneumothorax. No pleural effusion. Similar to slightly improved infiltrates in the right lung. No new consolidation. No acute osseous abnormality. IMPRESSION: Similar to slightly improved infiltrates in the right lung. Electronically signed by: Dioni Graham MD 12/24/2019 9:13 AM CDT
--- NOTE | 2019-12-24 09:19 | PN ---
SUPERVISING PHYSICIAN: Jerald Rose MD DATE: 12/24/19 SUBJECTIVE: The patient states she gets a little short of breath when she gets up and walks around, but at rest she is doing okay. She did have a fall last night on her way back from the bathroom. X-rays were done which showed no fractures. She complains of some right ankle pain at this time. OBJECTIVE: VITAL SIGNS: Blood pressure 146/79. Heart rate 76. Respiratory rate 20. Temperature 98.0. Oxygen saturation 95%. GENERAL: Ms. Nunez is a 74-year-old female who is in no active distress. NEUROLOGIC: Alert and oriented. LUNGS: Diminished, but otherwise clear to auscultation bilaterally. CARDIOVASCULAR: Regular rate and rhythm. Normal S1, S2. ABDOMEN: Soft. Positive bowel sounds. EXTREMITIES: Lower extremities with no edema. She does have some bruising on the left knee and the right lateral ankle and onto the top of the foot as well with some ecchymosis. ASSESSMENT: 1. Recurrent pneumonia. 2. Chronic obstructive pulmonary disease exacerbation. 3. Tremors. 4. Acute on chronic kidney disease. 5. History of coronary artery disease with no evidence of current complications. 6. Fall. PLAN: The patient is still being cleared for COVID and that result is not back as of yet. Pulmonary status is unchanged at this time. X-rays were negative regarding fractures after the fall. We will continue current treatment and anticipate going to [facility] unless something changes. #[id number] [facility]
[2019-12-24] MEDS ORDERED: SODIUM CHL 0.9% 50ML MIN-BAG+ 50 ML IVPB ONE (11:58)
[2019-12-24] MEDS ORDERED: CEFEPIME 2 GM VIAL ONE (11:58)
[2019-12-24] MEDS: ENOXAPARIN SODIUM 40 MG/0.4 ML SYG SUBCU SCH (12:02)
[2019-12-24] MEDS: CEFEPIME 2 GM in SODIUM CHL 0.9% 50ML MIN-BAG+ 50 ML IVPB SCH (12:02)
[2019-12-24] MEDS: LACTATED RINGERS 1,000 ML IVS PRN (12:02)
[2019-12-24 12:20] VITALS: O2SAT 96
[2019-12-24 16:15] VITALS: BP 146/72; TEMP 97.9
--- NOTE | 2019-12-25 08:08 | DS ---
SUPERVISING PHYSICIAN: Jerald Rose MD ADMISSION DIAGNOSIS: 1. Recurrent pneumonia. 2. Chronic obstructive pulmonary disease exacerbation. 3. Tremors. 4. Acute on chronic kidney disease. 5. History of coronary artery disease with no evidence of current complications. DISCHARGE DIAGNOSIS: 1. Recurrent pneumonia. 2. Chronic obstructive pulmonary disease exacerbation. 3. Tremors. 4. Acute on chronic kidney disease. 5. History of coronary artery disease with no evidence of current complications. HOSPITAL COURSE: This is a 74-year-old female who came to the Emergency Room with initially some tremoring in her hands that was progressively getting worse. However, she also had some shortness of breath and productive cough. She was evaluated in the ER and noted to be short of breath at that time as well. She had a chest x-ray and some labs which showed leukocytosis and a new right basilar infiltrate. For that reason, she was referred for admission. She was placed on healthcare associated pneumonia antibiotics and also once again met criteria for COVID rule out. She had previously been ruled out two other times. The patient has been in the hospital two to three times this year for recurrent pneumonia as well as Emergency Room. Due to the COVID rule out, she was placed on MDI albuterol. I did withhold steroids because I thought that was potentially causing the tremors. Through her stay here, her tremors got slightly better, but she still had them. 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 X-rays did not reveal any fractures. She did have a little bruising on the lateral and anterior aspect of the right foot. This occurred on the way back from the bathroom. She presented with going to a pulmonary rehab due to the fact that she is having recurrent pneumonia. She accepted this. She was evaluated by [facility] who accepted her. Once the COVID was ruled out, she could go and, therefore, on 12/24/19 her testing came back negative for COVID. They did provide a bed and she was discharged there in stable condition. Her leukocytosis was better. Her cough was stable and she really was not that short of breath on the day of discharge. I discharged her in stable condition to go to [facility]. I resumed her nebulizer treatments since she did not have COVID. I did not resume her steroids. She was discharged on Levaquin 750 mg for 5 days. Further care will be initiated by [facility]. Activity is as per [facility] which includes pulmonary rehab and likely some physical therapy. #[id number] [facility]
== END 2019-12-24 18:35 | DRG 194 ==
LOC: ER 10:03 → MS 12:56 → OBSVTOIN 12:56
PROVIDERS: ADMIT Nurse Practitioner; ATTEND Nurse Practitioner
DX: J18.9 Pneumonia, unspecified organism (principal); J44.1 Chronic obstructive pulmonary disease with (acute) exacerbation; J44.0 Chronic obstructive pulmonary disease with (acute) lower respiratory infection; I50.30 Unspecified diastolic (congestive) heart failure; I13.0 Hypertensive heart and chronic kidney disease with heart failure and stage 1 through stage 4 chronic kidney disease, or unspecified chronic kidney disease; R25.1 Tremor, unspecified; N18.9 Chronic kidney disease, unspecified; I25.10 Atherosclerotic heart disease of native coronary artery without angina pectoris; N28.9 Disorder of kidney and ureter, unspecified; M81.0 Age-related osteoporosis without current pathological fracture; S90.31XA Contusion of right foot, initial encounter; W01.0XXA Fall on same level from slipping, tripping and stumbling without subsequent striking against object, initial encounter; Y92.230 Patient room in hospital as the place of occurrence of the external cause; Z66 Do not resuscitate; Z95.1 Presence of aortocoronary bypass graft; Z95.5 Presence of coronary angioplasty implant and graft; Z88.2 Allergy status to sulfonamides; Z87.891 Personal history of nicotine dependence; Y95 Nosocomial condition; Z79.1 Long term (current) use of non-steroidal anti-inflammatories (NSAID); Z79.82 Long term (current) use of aspirin; Z79.2 Long term (current) use of antibiotics; Z79.899 Other long term (current) drug therapy

== ENCOUNTER 2020-01-12 09:45 | Emergency (ER) | payer MEDICARE ==
--- NOTE | 2020-01-12 09:53 | ED.PDOC ---
History of Present Illness - General Time Seen by Provider: 01/12/20 09:51 Source: patient, RN notes reviewed, Vital Signs reviewed, EMS notes reviewed, family, EMS Exam Limitations: no limitations - History of Present Illness Initial Comments: This is a 74-year-old female with history of COPD, three-vessel CABG, hypertension, multiple admissions over the last 6 to 8 months for pneumonia presenting to the emergency department for shortness of breath, generalized weakness. She was admitted to the hospital last week and was discharged home 3 days ago. She was diagnosed with HCAP. She was tested for COVID-19 and was negative last week. She states she has not gotten any better since she was discharged. Home health came to visit this morning, O2 sats are 82% on room air. Patient uses home oxygen at night only. They also noted that she seemed a little bit more confused than normal. Patient reports some associated nausea, no vomiting or diarrhea. Allergies/Adverse Reactions: Allergies Sulfa Antibiotics Allergy (Verified 12/22/19 10:14) Unknown Home Medications: Ambulatory Orders Albuterol Inhaler [Ventolin Hfa Inhaler] 1 puff INH QID PRN 12/16/16 Aspirin [Aspirin EC] 81 mg PO BEDTIME 12/16/16 Atenolol [Tenormin] 25 mg PO BID 12/16/16 Atorvastatin Calcium [Lipitor] 40 mg PO BEDTIME 12/16/16 diphenhydrAMINE HCL [Benadryl] 50 mg PO BEDTIME 12/16/16 Cholecalciferol [Vitamin D3] 5,000 unit PO BEDTIME 11/19/19 Cilostazol 100 mg PO BID 11/19/19 Potassium Chloride [K-Tab] 8 meq PO DAILY 11/19/19 Albuterol Sulfate Nebs [Proventil Nebs] 2.5 mg INH BID PRN 11/23/19 Albuterol Sulfate [Proair Hfa] 2 puff INH Q6H PRN 11/23/19 Gabapentin 300 mg PO TID PRN 11/23/19 Lisinopril [Prinivil] 10 mg PO DAILY #30 tab 11/24/19 Baclofen 10 mg PO BEDTIME 12/09/19 Meloxicam 7.5 mg PO BID 12/09/19 Nitroglycerin 0.4 mg Tab [Nitrostat] 0 ea SL .Q5M PRN 12/09/19 Cyclobenzaprine HCl [Flexeril] 10 mg PO BEDTIME 12/22/19 Esomeprazole Magnesium [Nexium] 40 mg PO DAILY 12/22/19 Furosemide 20 - 40 mg PO DAILY 12/22/19 Multiple Vitamins W/ Minerals [Multivitamin Women 50+] 1 tab PO DAILY 12/22/19 Umeclidinium-Vilanterol [Anoro Ellipta 62.5-25 Mcg/INH] 1 aer IN DAILY 12/22/19 Bifidobacterium Infantis [Align] 4 mg PO DAILY cap 12/24/19 Enoxaparin Sodium [Lovenox] 40 mg SUBCU Q24H syg 12/24/19 Levofloxacin [Levaquin] 750 mg PO DAILY 5 Days #5 tablet 12/24/19 Review of Systems - Review of Systems Constitutional: States: weakness. Denies: chills, fever EENTM: Denies: ear pain, nose congestion, throat pain Respiratory: States: short of breath. Denies: orthopnea, stridor Cardiology: Denies: chest pain, edema Gastrointestinal/Abdominal: States: nausea. Denies: abdominal pain, constipation, diarrhea Genitourinary: Denies: dysuria, hematuria, pain Musculoskeletal: Denies: back pain, joint pain, muscle stiffness, neck pain Skin: Denies: lesions, rash Neurological: Denies: headache, numbness, paresthesia, tingling, tremors, weakness Endocrine: States: no symptoms reported Hematologic/Lymphatic: Denies: anemia, blood clots Past Medical History (General) - Patient Medical History Hx Seizures: No Hx Stroke: No Hx Dementia: No Hx Asthma: Yes Hx of COPD: Yes Hx Cardiac Disorders: Yes Hx Congestive Heart Failure: Yes Hx Pacemaker: No Hx Hypertension: Yes Hx Thyroid Disease: No Hx Diabetes: No Hx Gastroesophageal Reflux: No Hx Renal Disease: No Hx Cancer: No Hx of HIV: No Hx Hepatitis C: No Hx MRSA: No - Vaccination History Hx Tetanus, Diphtheria Vaccination: Yes Hx Influenza Vaccination: Yes Hx Pneumococcal Vaccination: Yes - Social History Hx Tobacco Use: No Hx Chewing Tobacco Use: No Hx Alcohol Use: No Hx Substance Use: No Hx Substance Use Treatment: No Hx Depression: No Hx Physical Abuse: No Hx Emotional Abuse: No Hx Suspected Abuse: No - Female History Patient : No Family Medical History - Family History Father Living Status: Hx Family Asthma: No Hx Family Congestive Heart Failure: No Hx Family Hypertension: Yes Hx Family Stroke: No Hx Cardiac Disease: Yes Hx Family Diabetes: No Hx Family Cancer: No Mother Living Status: Hx Family Asthma: No Hx Family Congestive Heart Failure: No Hx Family Hypertension: Yes Hx Family Stroke: No Hx Cardiac Disease: Yes Hx Family Diabetes: No Hx Family Cancer: Yes - lung cancer Physical Exam - Physical Exam General Appearance: Alert, Comfortable, No apparent distress Eye Exam: bilateral normal Ears, Nose, Throat: normal ENT inspection, normal pharynx, abnormal TM (R) Neck: non-tender, full range of motion, supple, normal inspection Respiratory: chest non-tender, no respiratory distress, no accessory muscle use, wheezing - Scant, primarily right side Cardiovascular/Chest: normal peripheral pulses, regular rate, rhythm, no edema, no gallop, no JVD Peripheral Pulses: radial,right: 1+, radial,left: 1+, dorsalis pedis,right: 1+, dorsalis pedis,left: 1+ Gastrointestinal/Abdominal: normal bowel sounds, non tender Back Exam: normal inspection, no CVA tenderness Extremity: normal range of motion, non-tender, normal inspection 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 I discussed labs and need for admission. He requested transfer to [facility] in [place] due to recurrent nature of the illness and failure to improve. Will make phone calls arrange for transfer. BP improved to 111/59 01/12/20 13:[address] Moura, hospitalist at [facility]. Will accept his transfer, plan to admit to [facility] 01/12/20 14:33 Rechecked. Discussed plan for transfer with patient family. All questions answered. DDX: Pneumonia, CHF, sepsis/severe sepsis, PE MDM: Patient presenting with worsening hypoxia with O2 sats in the 80s on EMS arrival, typically does not use O2 during the day. Multiple recent admissions for recurrent pneumonia. Patient states she is progressively declined since recent discharge from the hospital. Chest x-ray shows suspected bilateral lower lobe infiltrates, leukocytosis of 14,000, creatinine worsening from 1.7 at the time of discharge to 2.8 today. Patient has evidence of acute organ dysfunction associated with suspected sepsis, meets criteria for severe sepsis. She does not need pressors at this time. She was given a 30 mL/kg bolus and IV meropenem prior to transfer. Blood cultures pending. Lactates normal x2 Aaron Vazquez DO [facility][id number] - Results/Orders Results/Orders: EKG shows a sinus rhythm with a rate of 93, normal axis, normal intervals, no ST segment elevations or depressions. Interpreted by me at 9:58 AM. ABG at 1048: 7.36/40.1/76.6 (L)/22.6. 01/12/20 10:04 IV Care:Saline Lock per Protoc QSHIFT Telemetry .ONCE Sodium Chloride 0.9% (Flush) [Saline Flush Syringe] 10 ml IV PRN PRN EKG Stat Pulse Ox Stat 01/12/20 11:00 BLOOD CULTURE Stat 01/12/20 11:04 CTA Chest [CT] Stat Laboratory Results - last 24 hr 01/12/20 01/12/20 01/12/20 10:04 10:32 10:32 WBC 14.5 H RBC 3.03 L Hgb 8.2 L Hct 25.5 L MCV 83.9 MCH 27.1 MCHC 32.3 L RDW 17.7 H Plt Count 400 MPV 7.3 L Absolute Neuts (auto) 12.80 H Absolute Lymphs (auto) 0.70 L Absolute Monos (auto) 0.90 H Absolute Eos (auto) 0.00 Absolute Basos (auto) 0.00 Neutrophils % 88.4 H Lymphocytes % 4.6 L Monocytes % 6.4 Eosinophils % 0.3 L Basophils % 0.3 PT INR PTT (SP) D-Dimer, Quantitative pCO2 40 pO2 77 L HCO3 22.6 ABG pH 7.360 ABG O2 Saturation 94.9 L ABG Base Excess -2.6 ABG Deoxyhemoglobin 4.9 Oxyhemoglobin % 91.9 L Carboxyhemoglobin % 2.1 H Methemoglobin % Sat 1.1 Calc Total Hemoglobin 8.1 L Sodium 129 L Potassium 5.6 H Chloride 97 L Carbon Dioxide 24 Anion Gap 13.6 BUN 46 H Creatinine 2.78 H BUN/Creatinine Ratio 16.5 Random Glucose 125 H Serum Osmolality 272.3 L Lactic Acid Calcium 8.5 Total Bilirubin 0.9 AST 29 ALT 16 Alkaline Phosphatase 62 Creatine Kinase 480 H* CK-MB (CK-2) 6.0 H* CK-MB (CK-2) % 1.25 Troponin I < 0.02 B-Natriuretic Peptide Serum Total Protein 6.2 L Albumin 2.8 L Globulin 3.4 Albumin/Globulin Ratio 0.8 L Urine Color Urine Appearance Urine pH Ur Specific [place] Urine Protein Urine Glucose (UA) Urine Ketones Urine Blood Urine Nitrite Urine Bilirubin Urine Urobilinogen Ur Leukocyte Esterase Urine RBC Urine WBC Ur Epithelial Cells Amorphous Sediment Urine Bacteria 01/12/20 01/12/20 01/12/20 10:32 10:32 11:00 WBC RBC Hgb Hct MCV MCH MCHC RDW Plt Count MPV Absolute Neuts (auto) Absolute Lymphs (auto) Absolute Monos (auto) Absolute Eos (auto) Absolute Basos (auto) Neutrophils % Lymphocytes % Monocytes % Eosinophils % Basophils % PT 10.1 INR 1.02 PTT (SP) 28.6 D-Dimer, Quantitative 2120 H* pCO2 pO2 HCO3 ABG pH ABG O2 Saturation ABG Base Excess ABG Deoxyhemoglobin Oxyhemoglobin % Carboxyhemoglobin % Methemoglobin % Sat Calc Total Hemoglobin Sodium Potassium Chloride Carbon Dioxide Anion Gap BUN Creatinine BUN/Creatinine Ratio Random Glucose Serum Osmolality Lactic Acid 0.9 Calcium Total Bilirubin AST ALT Alkaline Phosphatase Creatine Kinase CK-MB (CK-2) CK-MB (CK-2) % Troponin I B-Natriuretic Peptide 121.0 H Serum Total Protein Albumin Globulin Albumin/Globulin Ratio Urine Color Urine Appearance Urine pH Ur Specific [place] Urine Protein Urine Glucose (UA) Urine Ketones Urine Blood Urine Nitrite Urine Bilirubin Urine Urobilinogen Ur Leukocyte Esterase Urine RBC Urine WBC Ur Epithelial Cells Amorphous Sediment Urine Bacteria 01/12/20 01/12/20 11:50 12:20 WBC RBC Hgb Hct MCV MCH MCHC RDW Plt Count MPV Absolute Neuts (auto) Absolute Lymphs (auto) Absolute Monos (auto) Absolute Eos (auto) Absolute Basos (auto) Neutrophils % Lymphocytes % Monocytes % Eosinophils % Basophils % PT INR PTT (SP) D-Dimer, Quantitative pCO2 pO2 HCO3 ABG pH ABG O2 Saturation ABG Base Excess ABG Deoxyhemoglobin Oxyhemoglobin % Carboxyhemoglobin % Methemoglobin % Sat Calc Total Hemoglobin Sodium Potassium Chloride Carbon Dioxide Anion Gap BUN Creatinine BUN/Creatinine Ratio Random Glucose Serum Osmolality Lactic Acid 0.9 Calcium Total Bilirubin AST ALT Alkaline Phosphatase Creatine Kinase CK-MB (CK-2) CK-MB (CK-2) % Troponin I B-Natriuretic Peptide Serum Total Protein Albumin Globulin Albumin/Globulin Ratio Urine Color Yellow Urine Appearance Sl cloudy Urine pH 5.5 Ur Specific [place] 1.020 Urine Protein Negative Urine Glucose (UA) Negative Urine Ketones Negative Urine Blood Negative Urine Nitrite Negative Urine Bilirubin Negative Urine Urobilinogen 0.2 Ur Leukocyte Esterase Negative Urine RBC 0 Urine WBC 0 Ur Epithelial Cells 0-1 Amorphous Sediment 2+ Urine Bacteria 0 EXAM DESCRIPTION: Chest,1 View CLINICAL HISTORY: 74 years Female, generalized weakness, hypoxia COMPARISON: 12/24/2019. TECHNIQUE: AP radiograph of the chest was obtained. FINDINGS: Trachea is midline.The cardiomediastinal silhouette is normal in size. The pulmonary vasculature is within normal limits. Stable interstitial prominence with possible superimposed airspace opacities in the right midlung and bilateral lower lobes. IMPRESSION: Stable interstitial prominence with possible superimposed airspace opacities in the right midlung and bilateral lower lobes. Electronically signed by: Nayeli Pedro MD 01/12/2020 10:43 Departure - Departure Clinical Impression: Severe sepsis, Acute kidney injury, Acute and chronic respiratory failure with hypoxia, HCAP (healthcare-associated pneumonia) Time of Disposition: 14:15 Disposition: Transfer to Hospital Condition: Fair Referrals: Jerald Rose MD [Primary Care Provider] - 1-2 Weeks Home Medications: Ambulatory Orders Albuterol Inhaler [Ventolin Hfa Inhaler] 1 puff INH QID PRN 12/16/16 Aspirin [Aspirin EC] 81 mg PO BEDTIME 12/16/16 Atenolol [Tenormin] 25 mg PO BID 12/16/16 Atorvastatin Calcium [Lipitor] 40 mg PO BEDTIME 12/16/16 diphenhydrAMINE HCL [Benadryl] 50 mg PO BEDTIME 12/16/16 Cholecalciferol [Vitamin D3] 5,000 unit PO BEDTIME 11/19/19 Cilostazol 100 mg PO BID 11/19/19 Potassium Chloride [K-Tab] 8 meq PO DAILY 11/19/19 Albuterol Sulfate Nebs [Proventil Nebs] 2.5 mg INH BID PRN 11/23/19 Albuterol Sulfate [Proair Hfa] 2 puff INH Q6H PRN 11/23/19 Gabapentin 300 mg PO TID PRN 11/23/19 Lisinopril [Prinivil] 10 mg PO DAILY #30 tab 11/24/19 Baclofen 10 mg PO BEDTIME 12/09/19 Meloxicam 7.5 mg PO BID 12/09/19 Nitroglycerin 0.4 mg Tab [Nitrostat] 0 ea SL .Q5M PRN 12/09/19 Cyclobenzaprine HCl [Flexeril] 10 mg PO BEDTIME 12/22/19 Esomeprazole Magnesium [Nexium] 40 mg PO DAILY 12/22/19 Furosemide 20 - 40 mg PO DAILY 12/22/19 Multiple Vitamins W/ Minerals [Multivitamin Women 50+] 1 tab PO DAILY 12/22/19 Umeclidinium-Vilanterol [Anoro Ellipta 62.5-25 Mcg/INH] 1 aer IN DAILY 12/22/19 Bifidobacterium Infantis [Align] 4 mg PO DAILY cap 12/24/19 Enoxaparin Sodium [Lovenox] 40 mg SUBCU Q24H syg 12/24/19 Levofloxacin [Levaquin] 750 mg PO DAILY 5 Days #5 tablet 12/24/19
[2020-01-12] MEDS ORDERED: SODIUM CHLORIDE 0.9% 1000ML 1,500 ML IVS ONE (10:04)
[2020-01-12] MEDS ORDERED: SODIUM CHLORIDE 0.9% (FLUSH) 10 ML SYG IV PRN (10:04)
[2020-01-12] MEDS ORDERED: SODIUM CHLORIDE 0.9% 1000ML 1,000 ML IVS ONE (10:04)
[2020-01-12] MEDS ORDERED: MEROPENEM 1 GM in SODIUM CHL 0.9% 50ML MIN-BAG+ 50 ML IVPB ONE (10:07)
[2020-01-12] MEDS ORDERED: SODIUM CHL 0.9% 50ML MIN-BAG+ 50 ML IVPB ONE (10:19)
[2020-01-12] MEDS ORDERED: MEROPENEM 1 GM VIAL IVPB ONE (10:19)
--- NOTE | 2020-01-12 10:45 | RAD ---
EXAM DESCRIPTION: Chest,1 View CLINICAL HISTORY: 74 years Female, generalized weakness, hypoxia COMPARISON: 12/24/2019. TECHNIQUE: AP radiograph of the chest was obtained. FINDINGS: Trachea is midline.The cardiomediastinal silhouette is normal in size. The pulmonary vasculature is within normal limits. Stable interstitial prominence with possible superimposed airspace opacities in the right midlung and bilateral lower lobes. IMPRESSION: Stable interstitial prominence with possible superimposed airspace opacities in the right midlung and bilateral lower lobes. Electronically signed by: Nayeli Pedro MD 01/12/2020 10:43 AM CDT
[2020-01-12 14:43] VITALS: TEMP 100.1
[2020-01-12 19:56] VITALS: BP 115/57; O2SAT 93
== END 2020-01-12 15:45 | disposition short-term general hospital (02) ==
LOC: ER 09:45
DX: J18.9 Pneumonia, unspecified organism (principal); R65.20 Severe sepsis without septic shock; J96.21 Acute and chronic respiratory failure with hypoxia; Y95 Nosocomial condition; N17.9 Acute kidney failure, unspecified; J44.9 Chronic obstructive pulmonary disease, unspecified; I11.0 Hypertensive heart disease with heart failure; I50.9 Heart failure, unspecified; R53.1 Weakness; D72.829 Elevated white blood cell count, unspecified; Z99.81 Dependence on supplemental oxygen; Z95.1 Presence of aortocoronary bypass graft; Z88.2 Allergy status to sulfonamides; Z79.82 Long term (current) use of aspirin
CPT/HCPCS: 36415; 36600; 71045; 80053; 81001; 82550; 82553; 82803; 82805; 83605; 83880; 84484; 85025; 85379; 85610; 85730; 87040; 93005; J2185; J7030; J7050

== ENCOUNTER → 2020-02-11 | Outpatient (CLI) | payer MEDICARE, OTHER | LOC: BFHOS 09:45 | PROVIDERS: ATTEND Family Medicine | DX: D64.9 Anemia, unspecified (principal) ==

== ENCOUNTER 2020-02-14 14:20 | Inpatient (IN) | payer MEDICARE ==
[2020-02-14] MEDS ORDERED: IPRATROPIUM/ALBUTEROL 3 ML VIAL NEB ONE ×2 (14:33→17:18)
--- NOTE | 2020-02-14 14:33 | ED.PDOC ---
History of Present Illness - General Chief Complaint: Neuro Symptoms/Deficits Time Seen by Provider: 02/14/20 14:26 Source: patient, RN notes reviewed, Vital Signs reviewed, family, RN/MD, EMS - History of Present Illness Initial Comments: Patient is a 74-year-old female with past medical history of COPD, on home oxygen, CHF, hypertension, chronic kidney disease who presents the ED for confusion and a low oxygen. Family states that for the past 24 hours she has not been as alert as she typically is and has been pulling her oxygen off. They deny fever, chest pain or any known sick contacts. Upon EMS arrival, O2 sat was 84% on room air which improved to 95% by placing patient on oxygen. Patient is alert and can tell me her name, she denies any pain or nausea or any other symptoms at this time. Allergies/Adverse Reactions: Allergies Sulfa Antibiotics Allergy (Verified 12/22/19 10:14) Unknown Home Medications: Ambulatory Orders Albuterol Inhaler [Ventolin Hfa Inhaler] 1 puff INH QID PRN 12/16/16 Aspirin [Aspirin EC] 81 mg PO BEDTIME 12/16/16 Atenolol [Tenormin] 25 mg PO BID 12/16/16 Atorvastatin Calcium [Lipitor] 40 mg PO BEDTIME 12/16/16 diphenhydrAMINE HCL [Benadryl] 50 mg PO BEDTIME 12/16/16 Cholecalciferol [Vitamin D3] 5,000 unit PO BEDTIME 11/19/19 Cilostazol 100 mg PO BID 11/19/19 Potassium Chloride [K-Tab] 8 meq PO DAILY 11/19/19 Albuterol Sulfate Nebs [Proventil Nebs] 2.5 mg INH BID PRN 11/23/19 Albuterol Sulfate [Proair Hfa] 2 puff INH Q6H PRN 11/23/19 Gabapentin 300 mg PO TID PRN 11/23/19 Lisinopril [Prinivil] 10 mg PO DAILY #30 tab 11/24/19 Baclofen 10 mg PO BEDTIME 12/09/19 Meloxicam 7.5 mg PO BID 12/09/19 Nitroglycerin 0.4 mg Tab [Nitrostat] 0 ea SL .Q5M PRN 12/09/19 Cyclobenzaprine HCl [Flexeril] 10 mg PO BEDTIME 12/22/19 Esomeprazole Magnesium [Nexium] 40 mg PO DAILY 12/22/19 Furosemide 20 - 40 mg PO DAILY 12/22/19 Multiple Vitamins W/ Minerals [Multivitamin Women 50+] 1 tab PO DAILY 12/22/19 Umeclidinium-Vilanterol [Anoro Ellipta 62.5-25 Mcg/INH] 1 aer IN DAILY 12/22/19 Bifidobacterium Infantis [Align] 4 mg PO DAILY cap 12/24/19 Enoxaparin Sodium [Lovenox] 40 mg SUBCU Q24H syg 12/24/19 Levofloxacin [Levaquin] 750 mg PO DAILY 5 Days #5 tablet 12/24/19 Review of Systems - Review of Systems Constitutional: States: malaise. Denies: chills, fever EENTM: Denies: throat pain, throat swelling Respiratory: States: short of breath, wheezing Cardiology: Denies: chest pain, syncope Gastrointestinal/Abdominal: Denies: abdominal pain, diarrhea, nausea, vomiting Musculoskeletal: States: no symptoms reported Skin: States: no symptoms reported Neurological: States: other - Decreased LOC. Denies: headache Hematologic/Lymphatic: States: no symptoms reported All other Systems: Reviewed and Negative Past Medical History (General) - Patient Medical History Hx Seizures: No Hx Stroke: No Hx Dementia: No Hx Asthma: Yes Hx of COPD: Yes Hx Cardiac Disorders: Yes Hx Congestive Heart Failure: Yes Hx Pacemaker: No Hx Hypertension: Yes Hx Thyroid Disease: No Hx Diabetes: No Hx Gastroesophageal Reflux: No Hx Renal Disease: No Hx Cancer: No Hx of HIV: No Hx Hepatitis C: No Hx MRSA: No - Vaccination History Hx Tetanus, Diphtheria Vaccination: Yes Hx Influenza Vaccination: Yes Hx Pneumococcal Vaccination: Yes - Social History Hx Tobacco Use: No Hx Chewing Tobacco Use: No Hx Alcohol Use: No Hx Substance Use: No Hx Substance Use Treatment: No Hx Depression: No Hx Physical Abuse: No Hx Emotional Abuse: No Hx Suspected Abuse: No - Female History Patient : No Family Medical History - Family History Father Living Status: Hx Family Asthma: No Hx Family Congestive Heart Failure: No Hx Family Hypertension: Yes Hx Family Stroke: No Hx Cardiac Disease: Yes Hx Family Diabetes: No Hx Family Cancer: No Mother Living Status: Hx Family Asthma: No Hx Family Congestive Heart Failure: No Hx Family Hypertension: Yes Hx Family Stroke: No Hx Cardiac Disease: Yes Hx Family Diabetes: No Hx Family Cancer: Yes - lung cancer Physical Exam - Physical Exam General Appearance: Alert, No apparent distress, Other - Pt somnolent, but awakens to voice and answers questions Eye Exam: bilateral normal - PERRL Ears, Nose, Throat: normal pharynx Neck: non-tender, full range of motion, supple Respiratory: chest non-tender, other - Good air movement with mild bilateral wheezes Cardiovascular/Chest: regular rate, rhythm, no edema, no murmur Gastrointestinal/Abdominal: non tender, soft, no pulsatile mass Back Exam: no CVA tenderness, no vertebral tenderness Extremity: normal range of motion, non-tender, no pedal edema, no calf tenderness Neurologic: other - Opens eyes to voice. Able to answer simple questions. No cranial nerve deficit. Moves all 4 extremities. Skin Exam: normal color, warm/dry Progress - Progress Progress: 02/14/20 17:20 Patient is a 74-year-old female with past medical history of COPD, CHF, chronic kidney disease and hypertension. She is on oxygen at home. Presents with 1 day history with family stating she has been confused and pulling her oxygen off of her. She has been alert and answering questions in ED. Chest x-ray shows bilateral lower lobe infiltrates. She has a white blood cell count of 15,000 and creatinine is 2.5 today, previous creatinine was 1.6. Urine and troponin as well as lactic acid x2 have been negative. She had a brief episode of hypotension which responded well to IV fluids. Blood cultures have been sent and patient started on meropenem. We will plan to admit for continued treatment. - Results/Orders Results/Orders: EKG- NSR, rate 82, nml intervals, no ST abnormalities CXR EXAM DESCRIPTION: Chest,1 View CLINICAL HISTORY: 74 years Female, sob COMPARISON: 01/12/2020 FINDINGS: The heart and mediastinum are remarkable for poststernotomy and CABG changes. A coronary arterial stent is noted on the left. There is atherosclerotic disease about the thoracic aorta. The lung rosas are remarkable for a mild infiltrate in the left lower lung field and a moderate severe pulmonary infiltrates in the right lower lung field. There is underlying COPD. The pulmonary vascularity is unremarkable. No active pleural disease is present. IMPRESSION: 1. Bilateral pulmonary infiltrates in the lower lung rosas right more severe than left. 2. COPD. 3. Atherosclerotic disease. CT HEAD IMPRESSION: No evidence of acute intracranial hemorrhage. Findings consistent with small vessel disease and other chronic changes. Please see other comments above. 02/14/20 14:30 EKG STAT 02/14/20 14:32 IV Care:Saline Lock per Protoc QSHIFT Telemetry ONCE Oxygen Delivery Assessment: QSHIFT Oxygen Stat Pulse Ox Stat Pulse Oximetry Assessment DAILY 02/14/20 14:44 ABG [Arterial Blood Gas] Stat 02/14/20 14:48 BLOOD CULTURE Stat 02/14/20 15:00 Catheter:Santos QSHIFT Laboratory Results - last 24 hr 02/14/20 02/14/20 02/14/20 14:30 14:44 14:48 WBC 15.1 H RBC 4.13 L Hgb 11.5 L Hct 35.3 L MCV 85.4 MCH 27.8 MCHC 32.6 L RDW 17.5 H Plt Count 236 MPV 8.3 Absolute Neuts (auto) 12.60 H Absolute Lymphs (auto) 1.40 Absolute Monos (auto) 1.00 H Absolute Eos (auto) 0.10 Absolute Basos (auto) 0.00 Neutrophils % 83.1 H Lymphocytes % 9.4 L Monocytes % 6.9 Eosinophils % 0.3 L Basophils % 0.3 PT 10.9 INR 1.10 PTT (SP) 28.4 pCO2 45 pO2 63 L HCO3 27.6 ABG pH 7.396 ABG O2 Saturation 92.6 L ABG Base Excess 2.3 Oxyhemoglobin % 90.4 L Carboxyhemoglobin % 1.7 H Methemoglobin % Sat 0.7 Calc Total Hemoglobin 10.7 L Sodium Potassium Chloride Carbon Dioxide Anion Gap BUN Creatinine BUN/Creatinine Ratio Random Glucose Serum Osmolality Lactic Acid Calcium Total Bilirubin AST ALT Alkaline Phosphatase Troponin I B-Natriuretic Peptide Serum Total Protein Albumin Globulin Albumin/Globulin Ratio Urine Color Urine Appearance Urine pH Ur Specific [place] Urine Protein Urine Glucose (UA) Urine Ketones Urine Blood Urine Nitrite Urine Bilirubin Urine Urobilinogen Ur Leukocyte Esterase Urine RBC Urine WBC Ur Epithelial Cells Urine Bacteria 02/14/20 02/14/20 02/14/20 14:48 14:48 14:48 WBC RBC Hgb Hct MCV MCH MCHC RDW Plt Count MPV Absolute Neuts (auto) Absolute Lymphs (auto) Absolute Monos (auto) Absolute Eos (auto) Absolute Basos (auto) Neutrophils % Lymphocytes % Monocytes % Eosinophils % Basophils % PT INR PTT (SP) pCO2 pO2 HCO3 ABG pH ABG O2 Saturation ABG Base Excess Oxyhemoglobin % Carboxyhemoglobin % Methemoglobin % Sat Calc Total Hemoglobin Sodium 137 Potassium 5.1 H Chloride 104 Carbon Dioxide 26 Anion Gap 12.1 BUN 35 H Creatinine 2.51 H BUN/Creatinine Ratio 13.9 Random Glucose 110 H Serum Osmolality 282.4 Lactic Acid 1.8 Calcium 8.4 Total Bilirubin 1.0 AST 33 ALT 14 Alkaline Phosphatase 59 Troponin I < 0.02 B-Natriuretic Peptide 194.0 H Serum Total Protein 6.1 L Albumin 3.1 L Globulin 3.0 Albumin/Globulin Ratio 1.0 L Urine Color Urine Appearance Urine pH Ur Specific [place] Urine Protein Urine Glucose (UA) Urine Ketones Urine Blood Urine Nitrite Urine Bilirubin Urine Urobilinogen Ur Leukocyte Esterase Urine RBC Urine WBC Ur Epithelial Cells Urine Bacteria 02/14/20 02/14/20 15:45 16:35 WBC RBC Hgb Hct MCV MCH MCHC RDW Plt Count MPV Absolute Neuts (auto) Absolute Lymphs (auto) Absolute Monos (auto) Absolute Eos (auto) Absolute Basos (auto) Neutrophils % Lymphocytes % Monocytes % Eosinophils % Basophils % PT INR PTT (SP) pCO2 pO2 HCO3 ABG pH ABG O2 Saturation ABG Base Excess Oxyhemoglobin % Carboxyhemoglobin % Methemoglobin % Sat Calc Total Hemoglobin Sodium Potassium Chloride Carbon Dioxide Anion Gap BUN Creatinine BUN/Creatinine Ratio Random Glucose Serum Osmolality Lactic Acid 2.0 Calcium Total Bilirubin AST ALT Alkaline Phosphatase Troponin I B-Natriuretic Peptide Serum Total Protein Albumin Globulin Albumin/Globulin Ratio Urine Color Yellow Urine Appearance Clear Urine pH 5.0 Ur Specific [place] 1.020 Urine Protein Negative Urine Glucose (UA) Negative Urine Ketones Negative Urine Blood Negative Urine Nitrite Negative Urine Bilirubin Negative Urine Urobilinogen 0.2 Ur Leukocyte Esterase Negative Urine RBC 0 Urine WBC 0 Ur Epithelial Cells 0 Urine Bacteria 0 Departure - Departure Clinical Impression: COPD exacerbation Pneumonia Qualifiers: Pneumonia type: due to unspecified organism Laterality: bilateral Lung lo cation: lower lobe of lung Qualified Code(s): J18.9 - Pneumonia, unspecified organism Acute renal failure (ARF) Qualifiers: Acute renal failure type: unspecified Qualified Code(s): N17.9 - Acute kidney failure, unspecified Sepsis Qualifiers: Sepsis type: sepsis due to unspecified organism Sepsis acute organ dysfunction status: unspecified Qualified Code(s): A41.9 - Sepsis, unspecified organism Time of Disposition: 17:20 Disposition: Admit Patient Condition: Poor Departure Forms: ED Discharge - Pt. Copy, Patient Portal Self Enrollment Referrals: Jerald Rose MD [Primary Care Provider] - 1-2 Weeks Home Medications: Ambulatory Orders Albuterol Inhaler [Ventolin Hfa Inhaler] 1 puff INH QID PRN 12/16/16 Aspirin [Aspirin EC] 81 mg PO BEDTIME 12/16/16 Atenolol [Tenormin] 25 mg PO BID 12/16/16 Atorvastatin Calcium [Lipitor] 40 mg PO BEDTIME 12/16/16 diphenhydrAMINE HCL [Benadryl] 50 mg PO BEDTIME 12/16/16 Cholecalciferol [Vitamin D3] 5,000 unit PO BEDTIME 11/19/19 Cilostazol 100 mg PO BID 11/19/19 Potassium Chloride [K-Tab] 8 meq PO DAILY 11/19/19 Albuterol Sulfate Nebs [Proventil Nebs] 2.5 mg INH BID PRN 11/23/19 Albuterol Sulfate [Proair Hfa] 2 puff INH Q6H PRN 11/23/19 Gabapentin 300 mg PO TID PRN 11/23/19 Lisinopril [Prinivil] 10 mg PO DAILY #30 tab 11/24/19 Baclofen 10 mg PO BEDTIME 12/09/19 Meloxicam 7.5 mg PO BID 12/09/19 Nitroglycerin 0.4 mg Tab [Nitrostat] 0 ea SL .Q5M PRN 12/09/19 Cyclobenzaprine HCl [Flexeril] 10 mg PO BEDTIME 12/22/19 Esomeprazole Magnesium [Nexium] 40 mg PO DAILY 12/22/19 Furosemide 20 - 40 mg PO DAILY 12/22/19 Multiple Vitamins W/ Minerals [Multivitamin Women 50+] 1 tab PO DAILY 12/22/19 Umeclidinium-Vilanterol [Anoro Ellipta 62.5-25 Mcg/INH] 1 aer IN DAILY 12/22/19 Bifidobacterium Infantis [Align] 4 mg PO DAILY cap 12/24/19 Enoxaparin Sodium [Lovenox] 40 mg SUBCU Q24H syg 12/24/19 Levofloxacin [Levaquin] 750 mg PO DAILY 5 Days #5 tablet 12/24/19 Decision To Admit - Decistion To Admit Decision to Admit Date: 02/14/20 Decision to Admit Time: 17:19
[2020-02-14] MEDS ORDERED: SODIUM CHLORIDE 0.9% 1000ML 1,000 ML IVS ONE ×2 (15:03→15:49)
[2020-02-14] MEDS ORDERED: SODIUM CHLORIDE 0.9% 1000ML 1,000 ML ONE (15:03)
[2020-02-14] MEDS ORDERED: MEROPENEM 1 GM in SODIUM CHL 0.9% 50ML MIN-BAG+ 50 ML IVPB ONE (15:10)
--- NOTE | 2020-02-14 15:25 | RAD ---
EXAM DESCRIPTION: Chest,1 View CLINICAL HISTORY: 74 years Female, sob COMPARISON: 01/12/2020 FINDINGS: The heart and mediastinum are remarkable for poststernotomy and CABG changes. A coronary arterial stent is noted on the left. There is atherosclerotic disease about the thoracic aorta. The lung rosas are remarkable for a mild infiltrate in the left lower lung field and a moderate severe pulmonary infiltrates in the right lower lung field. There is underlying COPD. The pulmonary vascularity is unremarkable. No active pleural disease is present. IMPRESSION: 1. Bilateral pulmonary infiltrates in the lower lung rosas right more severe than left. 2. COPD. 3. Atherosclerotic disease. Electronically signed by: Jesus Grimm MD 02/14/2020 3:24 PM CDT
--- NOTE | 2020-02-14 16:21 | CT ---
EXAM DESCRIPTION: CT Head without contrast CLINICAL HISTORY: 74 years Female decreased LOC COMPARISON: CT brain dated December 02, 2019 and MRI brain dated December 04, 2019. TECHNIQUE: Noncontrast axial scans of the brain were obtained. Sagittal and coronal reformatted images were performed. There are scattered scanning artifacts. This exam was performed according to our departmental dose-optimization program, which includes automated exposure control, adjustment of the mA and/or kV according to patient size and/or use of iterative reconstruction technique. FINDINGS: There is no evidence of acute intracranial hemorrhage, hydrocephalus, midline shift, obvious mass effect, or major territorial infarction. On the coronal series, there is a suggestion of a thin membrane bordering a tiny chronic left parietal subdural collection, but I believe that this finding is artifactual. It was not present previously. There are scattered small foci of slightly decreased attenuation in deep white matter, consistent with microvascular ischemic changes, seen previously. There is mild cortical sulcal prominence in the upper convexity. Amaral-white distinction is generally preserved. Vascular calcifications are present at the base of the brain. The bony calvarium appears intact. Visualized paranasal sinuses and mastoid air cells appear clear except for partial opacification of left mastoid air cells, possibly slightly increased. The frontal sinuses are hypoplastic. IMPRESSION: No evidence of acute intracranial hemorrhage. Findings consistent with small vessel disease and other chronic changes. Please see other comments above. Electronically signed by: Adelso Jackson MD 02/14/2020 4:19 PM CDT
--- NOTE | 2020-02-14 19:31 | HP ---
SUPERVISING PHYSICIAN: Nate Denny MD CHIEF COMPLAINT: Shortness of breath, upper respiratory symptoms, altered mental status. HISTORY OF PRESENT ILLNESS: This is a 74 year-old female patient who has a significant past medical history of chronic obstructive pulmonary disease. She is on home oxygen. She also has congestive heart failure, hypertension, chronic kidney disease. She came to the Emergency Room due to increased confusion and low oxygen saturation. Over the last 24 hours, her family stated her mental status had changed and she has not been as alert as she typically is. She would not leave her oxygen on. There has been no fever, chest pain or known sick contacts. When EMS arrived at her home, her oxygen saturation was 84% on room air and improved to 95% after placing her on oxygen. She was brought to the Emergency Room and her initial vital signs showed a temperature of 98.8, heart rate 80, blood pressure 96/73, respiratory rate 10, it did go up into the mid 20s and as high as 26. Her oxygen saturation was 84% on room air and improved to 94% on oxygen. Her lab showed a WBC of 15,100 with hemoglobin of 11.5, hematocrit 35.3. She did have a left shift on her differential. Blood gas showed a PC02 of 45 with a P02 of 63, bicarb 27.6, oxygen saturation 92%. Chemistries showed sodium of 137, potassium 5.1, chloride 104, carbon dioxide 26, BUN 35, creatinine 2.51. Her baseline creatinine was 1.6. BNP 194, troponin less than 0.02. Lactic acid 1.8. Urinalysis was unremarkable. Blood cultures were drawn. Chest x-ray showed bilateral pulmonary infiltrates in the lower lung rosas. Head CT showed no evidence of acute intracranial hemorrhage, findings consistent with small vessel disease. She was given some fluids as well as several breathing treatments. She was also given meropenem and I was called for hospital admission. PAST MEDICAL HISTORY: 1. Chronic obstructive pulmonary disease. 2. Osteoporosis. 3. Coronary artery disease. 4. Congestive heart failure with diastolic etiology with no echocardiogram to review at this time. 5. Chronic renal disease. PAST SURGICAL HISTORY: 1. Coronary artery bypass graft. 2. PTCA with stents. 3. Appendectomy. 4. Cholecystectomy,. 5. Hysterectomy. 6. Multiple neck surgeries. CURRENT MEDICATIONS: Per the EMR and awaiting verification. ALLERGIES: SULFA. FAMILY HISTORY: Positive for coronary artery disease, hypertension, hypothyroidism, lung cancer. SOCIAL HISTORY: The patient has a history of smoking but she quit approximately 5 years ago. She is exposed to secondhand smoke. There is no history of ETOH or illicit drug use. REVIEW OF SYSTEMS: GENERAL: Positive for fatigue, negative for fever or weight changes. HEENT: Negative for vision changes, sore throat. RESPIRATORY: Positive for coughing, wheezing, shortness of breath CARDIAC: Negative for chest pain, palpitations, tachycardia. GI: Negative for abdominal pain, nausea, vomiting, diarrhea. . MUSCULOSKELETAL: Negative for arthralgias, myalgias. SKIN: Negative for lesions or rashes. NEUROLOGICAL: Positive for altered mental status. Negative for headaches or seizures. PHYSICAL EXAMINATION: VITAL SIGNS: Temperature 98.3, heart rate 85, blood pressure 119/67, respiratory rate 16, oxygen saturation 92% on 2 liters nasal cannula. GENERAL: This is a 74 year-old female patient lying in her hospital bed. She is in moderate respiratory distress. HEENT: Normocephalic and atraumatic. Pupils are equal and reactive. Oropharynx is clear. NECK: Supple without mass. RESPIRATORY: Diminished at the bases but otherwise essentially clear to auscultation. She does have faint bilateral expiratory wheezes at the bases. She is tachypneic when she carries on a conversation. She can only speak in 2 phrases. CARDIAC: ABDOMEN: Soft, nondistended, non-tender. Bowel sounds are positive. EXTREMITIES: No cyanosis, clubbing, or edema. NEUROLOGIC: She is awake but lethargic. She does answer simple questions and she moves all lower extremities without problems. She is oriented to person only. Labs and films are as per the history of present illness. ASSESSMENT: 1. Sepsis related to bilateral pneumonia, most likely community acquired. On admission, she was hypoxic with a P02 of 63. WBCs were 15,100, respiratory rate at times was less than 10 and at other times was 22 to 24 breaths per minute. Oxygen saturation 84%. 2. Chronic obstructive pulmonary disease with an acute exacerbation. 3. Altered mental status, most likely secondary to #1 and #2 with a negative head CT. 4. High risk for Covid-19 due to age and comorbidities. 5. Congestive heart failure with diastolic etiology. No echocardiogram to review at this time and no signs or symptoms of an acute exacerbation. 6. Acute on chronic kidney disease. Her admitting creatinine was 2.51, her baseline creatinine is 1.5. 7. Coronary artery disease. PLAN: The patient has been admitted to the hospital and pneumonia guidelines have been initiated. We will continue her on Merrem as well as aggressive pulmonary hygiene including her respiratory treatments, both p.r.n. and scheduled. I am going to hold off on any steroids for now but may need to give some of those later depending on her clinical improvement. I sent off test for Covid-19, she will be in isolation until this result is back. I have done neuro checks but most likely her mental changes are due to hypoxia and her infective process. I will give her gentle fluids overnight and repeat her labs in the morning. I have also started her on Lovenox for DVT prophylaxis as well as a PPI for ulcer prophylaxis. Her home medications will be restarted as soon as they have been verified. We will continue to monitor closely and follow as needed. [id number] [facility]
[2020-02-14] MEDS ORDERED: ALBUTEROL SULFATE 2.5 MG/3 ML VIAL NEB PRN (20:19)
[2020-02-14] MEDS ORDERED: SODIUM CHLORIDE 0.9% (FLUSH) 10 ML SYG IV PRN (20:19)
[2020-02-14] MEDS ORDERED: ONDANSETRON INJ 4 MG/2 ML VIAL IV PRN (20:19)
[2020-02-14] MEDS ORDERED: IV SET AND CAP CHANGE INJ INJ SCH (20:30)
[2020-02-14] MEDS ORDERED: MEROPENEM 1 GM VIAL IVPB ONE (21:33)
[2020-02-14] MEDS ORDERED: SODIUM CHL 0.9% 50ML MIN-BAG+ 50 ML IVPB ONE (21:34)
[2020-02-14] MEDS: ENOXAPARIN SODIUM 30 MG/0.3 ML SYG SUBCU SCH (21:38)
[2020-02-14] MEDS: SODIUM CHLORIDE 0.9% (FLUSH) 10 ML SYG IV SCH (21:38)
[2020-02-14] MEDS: MEROPENEM 1 GM in SODIUM CHL 0.9% 50ML MIN-BAG+ 50 ML IVPB SCH (21:38)
[2020-02-14] MEDS ORDERED: SODIUM CHLORIDE 0.45% 1000ML 1,000 ML IVS ONE (23:30)
[2020-02-15] MEDS: MEROPENEM 1 GM in SODIUM CHL 0.9% 50ML MIN-BAG+ 50 ML IVPB SCH ×3 (05:32→21:41)
[2020-02-15] MEDS: PANTOPRAZOLE SODIUM IV 40 MG VIAL IV SCH (05:33)
[2020-02-15] MEDS: ACETAMINOPHEN 325 MG TAB PO PRN ×2 (06:33→21:54)
--- NOTE | 2020-02-15 06:37 | RAD ---
EXAM: XR Chest, 1 View CLINICAL HISTORY: The patient is 74 years old and is Female; Pneumonia TECHNIQUE: Frontal view of the chest. COMPARISON: Chest radiograph February 14, 2020 FINDINGS: LUNGS: Emphysematous changes of lungs are present. Superimposed interstitial opacities are present specifically within the right lower lobe. The overall appearance is stable. PLEURAL SPACE: Unremarkable. No pneumothorax. HEART: Unremarkable. No cardiomegaly. MEDIASTINUM: Unremarkable. BONES/JOINTS: Median sternotomy wires and ostial markers are present. IMPRESSION: Stable chest. Electronically signed by: Mckenna Duffy MD 02/15/2020 6:34 AM CDT
[2020-02-15] MEDS: IPRATROPIUM/ALBUTEROL 3 ML VIAL NEB SCH ×4 (08:00→20:30)
[2020-02-15] MEDS: SODIUM CHLORIDE 0.9% (FLUSH) 10 ML SYG IV SCH ×2 (09:39→20:26)
[2020-02-15] MEDS ORDERED: MAGNESIUM SULFATE PREMIX 2GM 2 GM in PREMIX BAG 1 BAG IVPB ONE (12:53)
--- NOTE | 2020-02-15 15:15 | PN ---
SUPERVISING PHYSICIAN: Nate Denny MD DATE: 02/15/20 SUBJECTIVE: The patient is sitting up in bed talking to her son on the phone. There was some confusion when she was in the Emergency Room yesterday that she was on [facility] and that information was not given to the Emergency Room. [facility] has discharged her from their services at this time. We will continue to treat her for her pneumonia. She says her shortness of breath has improved. She has no nausea or vomiting or chest pain. OBJECTIVE: VITAL SIGNS: Temperature ;98.1, heart rate 94, blood pressure 120/65, respiratory rate 18, oxygen saturation 94% on 4 liters nasal cannula. RESPIRATORY: Diminished breath sounds throughout, although there is better air movement today than yesterday. CARDIAC: Regular rate and rhythm. NEUROLOGIC: She is awake, alert, and oriented x3. LABORATORY: Her WBCs have [id number] to 12,400 with hemoglobin of 10, hematocrit 31.4. Electrolytes were basically within normal limits with the exception of her magnesium was low at 1.7, BUN and creatinine have improved to 26 and 1.42. Preliminary blood cultures are negative to date. Chest x-ray shows a stable chest. All other labs and films have been reviewed via the EMR. ASSESSMENT: 1. Sepsis related to bilateral pneumonia, most likely community acquired. On admission, she was hypoxic with a P02 of 63. WBCs were 15,100, respiratory rate at times was less than 10 and at other times was 22 to 24 breaths per minute. Oxygen saturation 84%. 2. Chronic obstructive pulmonary disease with an acute exacerbation. 3. Altered mental status, most likely secondary to #1 and #2 with a negative head CT. 4. High risk for Covid-19 due to age and comorbidities. 5. Congestive heart failure with diastolic etiology. No echocardiogram to review at this time and no signs or symptoms of an acute exacerbation. 6. Acute on chronic kidney disease. Her admitting creatinine was 2.51, her baseline creatinine is 1.5. 7. Coronary artery disease. PLAN: We will continue present supportive care. I have given her some magnesium supplementation. We will repeat her labs in the morning. I will hold on any steroids as there is no wheezing today and she is clinically improved. I will await her Covid-19 results. Clinically, she has improved. Hopefully, we can discharge her in the next 24 to 48 hours. At that time, the patient and her family can decide if they want to resume [facility]. Her medications have still not been verified but we will start those as soon as they are and will continue to monitor closely and follow as needed. #[id number] [facility]
[2020-02-15] MEDS ORDERED: CILOSTAZOL 100 MG TAB ONE (19:22)
[2020-02-15] MEDS ORDERED: BACLOFEN 10 MG TAB ONE (19:23)
[2020-02-15] MEDS ORDERED: ATORVASTATIN 20 MG TAB PO ONE (19:23)
[2020-02-15] MEDS ORDERED: ATENOLOL 25 MG TAB ONE (19:23)
[2020-02-15] MEDS ORDERED: GABAPENTIN 300 MG CAP ONE (19:23)
[2020-02-15] MEDS: ATENOLOL 25 MG TAB PO SCH (20:25)
[2020-02-15] MEDS: CILOSTAZOL 100 MG TAB PO SCH (20:25)
[2020-02-15] MEDS: ENOXAPARIN SODIUM 30 MG/0.3 ML SYG SUBCU SCH (20:25)
[2020-02-15] MEDS: GABAPENTIN 300 MG CAP PO SCH (20:26)
[2020-02-15] MEDS ORDERED: BACLOFEN 10 MG TAB PO SCH (21:00)
[2020-02-15] MEDS ORDERED: ATORVASTATIN 20 MG TAB PO SCH (21:00)
[2020-02-15] MEDS ORDERED: METOPROLOL TARTRATE 25 MG TAB PO ONE (21:32)
[2020-02-16] MEDS: PANTOPRAZOLE SODIUM IV 40 MG VIAL IV SCH (06:02)
[2020-02-16] MEDS: MEROPENEM 1 GM in SODIUM CHL 0.9% 50ML MIN-BAG+ 50 ML IVPB SCH (06:03)
[2020-02-16] MEDS ORDERED: BIFIDOBACTERIUM INFANTIS 4 MG CAP ONE (07:22)
[2020-02-16] MEDS: IPRATROPIUM/ALBUTEROL 3 ML VIAL NEB SCH (08:00)
[2020-02-16] MEDS: SODIUM CHLORIDE 0.9% (FLUSH) 10 ML SYG IV SCH (08:17)
[2020-02-16] MEDS: GABAPENTIN 300 MG CAP PO SCH (08:17)
[2020-02-16] MEDS: ATENOLOL 25 MG TAB PO SCH (08:17)
[2020-02-16] MEDS: CILOSTAZOL 100 MG TAB PO SCH (08:17)
[2020-02-16] MEDS ORDERED: BIFIDOBACTERIUM INFANTIS 4 MG CAP PO SCH (09:00)
[2020-02-16 12:05] VITALS: BP 129/67; TEMP 98.1; O2SAT 96
--- NOTE | 2020-02-16 16:40 | DS ---
SUPERVISING PHYSICIAN: Jerald Rose MD DISCHARGE DIAGNOSIS: 1. Sepsis related to bilateral pneumonia, most likely community acquired. On admission, she was hypoxic with a P02 of 63. WBCs were 15,100, respiratory rate at times was less than 10 and at other times was 22 to 24 breaths per minute. Oxygen saturation 84%. 2. Chronic obstructive pulmonary disease with an acute exacerbation. 3. Altered mental status, most likely secondary to #1 and #2 with a negative head CT. 4. High risk for COVID-19 due to age and comorbidities. 5. Congestive heart failure with diastolic etiology. No echocardiogram to review at this time and no signs or symptoms of an acute exacerbation. 6. Acute on chronic kidney disease. Her admitting creatinine was 2.51, her baseline creatinine is 1.5. 7. Coronary artery disease. HISTORY OF PRESENT ILLNESS: This is a 74 year-old female patient with end-stage chronic obstructive pulmonary disease. She is on oxygen-dependent at home. She also has history congestive heart failure, hypertension, she chronic kidney disease. She was brought to the Emergency Room due to increased confusion and low oxygen saturation. She was unable to tell her family that she did not want to go to the hospital and she became unable to verbally communicate with her family. She had actually been on [facility], but her family panicked and called 911 and sent her to the Emergency Room. No one in the Emergency Room nor the hospital knew that she was on [facility] at the time of admission. Her initial saturation was 84%. After she was placed on oxygen, it improved to the low 90s. Her initial vital signs showed a temperature of 98.8, heart rate 80, blood pressure 96/73, respiratory rate 10. It did go up into the mid 20s and as high as 26. Her oxygen saturation was 84% on room air and improved to 94% on oxygen. Her lab showed a WBC of 15,100 with hemoglobin of 11.5, hematocrit 35.3. She did have a left shift on her differential. Blood gas showed a pCO2 of 45 with a pO2 of 63, bicarb 27.6, oxygen saturation 92%. Chemistries showed sodium of 137, potassium 5.1, chloride 104, carbon dioxide 26, BUN 35, creatinine 2.51. Her baseline creatinine was 1.6. BNP 194, troponin less than 0.02. Lactic acid 1.8. Urinalysis was unremarkable. Blood cultures were drawn. Chest x-ray showed bilateral pulmonary infiltrates in the lower lung rosas. Head CT showed no evidence of acute intracranial hemorrhage, findings were consistent with small vessel disease. She was given some fluids as well as several breathing treatments. She was started on meropenem and admitted to the hospital in stable condition. HOSPITAL COURSE: The pneumonia guidelines were started and she was continued on meropenem as well as aggressive pulmonary hygiene including respiratory treatments both p.r.n. and scheduled. She was also tested for COVID-19 due to her comorbidities of age and respiratory symptoms. She was placed in isolation. Her hypoxia was felt to be due an infectious, but we watched her closely and her mental status improved. She was given Lovenox for DVT prophylaxis as well as proton pump inhibitor for ulcer prophylaxis. Her home medications were re- started. Over the next 24 hours, her mental status improved to baseline. She was quite concerned that she was in the hospital and she did not want to come to the hospital, but she did realize her family panicked. She did say that she was on [facility]. They came and discharged the patient from hospice care. The patient continued her treatment for pneumonia. Her laboratory studies improved with the exception of her magnesium was low and she did receive supplementation. Her chest x-ray stabilized. She will be discharged home today in stable condition. LABORATORY: WBCs 15.1 on admission and today are 9.7, hemoglobin stable at 10.7 and hematocrit 32.4. Chemistries within normal limits today. Blood cultures after 24 hours are negative. She will be discharged home in stable condition. PLAN: The patient is discharged home stable condition. She will resume her [facility] care. She is to resume her usual diet as well as increase her activity as tolerated. She is to followup with the hospice physician or Dr. Rose as needed. In addition to her home medications, she will also have a prescription for doxycycline. She is to return to hospital or followup with her hospice provider for any problems or complications. DISCHARGE MEDICATIONS: 1. Atorvastatin. 2. Atenolol. 3. Vitamin D3. 4. Potassium chloride. 5. Cilostazol. 6. Gabapentin. 7. Albuterol. 8. Lisinopril. 9. Meloxicam. 10. Baclofen. 11. Nexium. 12. Multivitamin. 13. Furosemide. 14. Align. 15. Doxycycline. #[id number] [facility]
== END 2020-02-16 12:30 | disposition hospice, home (50) | DRG 871 ==
LOC: ER 14:20 → MS 19:30 → OBSVTOIN 19:30
PROVIDERS: ADMIT Nurse Practitioner Acute Care; ATTEND Nurse Practitioner Acute Care
DX: A41.9 Sepsis, unspecified organism (principal); J18.9 Pneumonia, unspecified organism; J44.1 Chronic obstructive pulmonary disease with (acute) exacerbation; J44.0 Chronic obstructive pulmonary disease with (acute) lower respiratory infection; I50.30 Unspecified diastolic (congestive) heart failure; N17.9 Acute kidney failure, unspecified; I13.0 Hypertensive heart and chronic kidney disease with heart failure and stage 1 through stage 4 chronic kidney disease, or unspecified chronic kidney disease; R09.02 Hypoxemia; Z66 Do not resuscitate; Z03.818 Encounter for observation for suspected exposure to other biological agents ruled out; N18.9 Chronic kidney disease, unspecified; I25.10 Atherosclerotic heart disease of native coronary artery without angina pectoris; E83.42 Hypomagnesemia; M81.0 Age-related osteoporosis without current pathological fracture; Z99.81 Dependence on supplemental oxygen; Z95.1 Presence of aortocoronary bypass graft; Z95.5 Presence of coronary angioplasty implant and graft; Z88.2 Allergy status to sulfonamides; Z87.891 Personal history of nicotine dependence; Z79.1 Long term (current) use of non-steroidal anti-inflammatories (NSAID); Z79.82 Long term (current) use of aspirin; Z79.899 Other long term (current) drug therapy